=== PATIENT | male | born 1980 ===

== ENCOUNTER 2020-09-16 22:29 | Emergency (ER) | payer OTHER, SELFPAY ==
[2020-09-16 22:31] VITALS: BP 136/64; PULSE 70; RESP 18; TEMP 36.8; O2SAT 97; BMI 34.2
--- NOTE | 2020-09-16 23:11 | ED_ITS ---
HPI - Back Pain/Injury General Chief Complaint: Back Pain/Injury Stated Complaint: Back Pain Time Seen by Provider: 09/16/20 23:05 Source: patient Mode of arrival: ambulatory Limitations: no limitations History of Present Illness HPI Narrative: Patient comes to emergency room complaining of right-sided back pain. Patient states earlier today he was working in [employer], patient states he stood up fast and felt a pulling sensation in his lumbar area on the right side. Patient states the pain does not radiate. Patient denies any fecal or urinary incontinence or retention. Patient states after he had the pulling sensation he was feeling well but after he pulled down from working, he started having pain again. Related Data Previous Rx's Medication Instructions Recorded cyclobenzaprine 10 mg PO TID PRN #14 tab 09/16/20 ketorolac 10 mg PO TID PRN 5 Days #10 tab 09/16/20 Allergies Allergy/AdvReac Type Severity Reaction Status Date / Time levofloxacin [From LEVAQUIN] Allergy Severe THROAT Unverified 07/17/20 16:30 CLOSING Review of Systems Review of Systems: Constitutional : No Weight loss, No Fever, No Chills, No Night Sweats, No Fatigue, No Malaise ENT/Mouth : No Hearing loss, No Ear Pain, No Nasal Congestion, No Sinus Pain, No Hoarseness, No sore throat, No Rhinorrhea, No Swallowing Difficulty Eyes: No Eye Pain, No Swelling, No Redness, No Foreign Body, No Discharge, No Vision Changes Cardiovascular : No Chest Pain, No SOB, No Dyspnea on Exertion, No Orthopnea, No Edema, No Palpitations Respiratory : No Cough, No Sputum, No Wheezing, No Smoke Exposure, No Dyspnea Gastrointestinal : No Nausea, No Vomiting, No Diarrhea, No Constipation, No abdominal Pain, No Hematochezia, No Melena Genitourinary : no irregular bleeding, No Dysuria, No Urinary Frequency, No Hematuria, No Urinary Incontinence, No Urgency, No Flank Pain, No Urinary Flow Changes, No Hesitancy Musculoskeletal : No joint pain, patient complaining of right lower back pain Skin : No Skin Lesions, No rash Neuro : No Weakness, No Numbness, No Paresthesias, No Loss of Consciousness, No Dizziness, No Headache Psych : No Anxiety/Panic, No Depression, No SI/HI/AH/VH, No Social Issues, Heme/Lymph: No Bruising, No Bleeding,No Lymphadenopathy Endocrine : No Polyuria, No Polydipsia, No Temperature Intolerance [facility] Past Medical History Medical History No active medical problems Social History Social History Alcohol intake: never Smoked in Last 30 Days: No Use of substances other than those prescribed or required for medical reasons: No Advance Directives: No Advance Directives Information Provided: Yes Physical Exam Vital Signs: Vital Signs: Last Vital Signs Temp 98.3 F 09/16/20 22:31 Pulse 70 09/16/20 22:31 Resp 18 09/16/20 22:31 BP 136/64 09/16/20 22:31 Pulse Ox 97 09/16/20 22:31 Body Mass Index 34.2 Appearance: Alert. Oriented X3. No acute distress. Eyes: Pupils equal, round and reactive to light. ENT: Pharynx normal. Neck: Normal inspection. Neck supple. No lymph nodes noted. No crepitus CVS: Normal heart rate and rhythm. Pulses normal. Normal S1 and S2 Respiratory: No respiratory distress. Breath sounds normal. No Wheezing. No rales Abdomen: Soft and nontender. No rigidity. No distention. good BS x4 Skin: Skin warm and dry. Normal skin color. Normal skin turgor. Back: Negative straight leg raise test on both sides Extremities: No lower extremity edema. No lower extremity edema. No Lacerations. No Rash Neuro: Oriented X 3. No motor deficit. No sensory deficit. Moving all extermities. No slurred speech. Course Course Course Narrative: I discussed the physical exam with the patient, it is likely that he has a muscular strain rather than a herniated disc versus a pinched nerve. Patient received an IM dose of ketorolac and Decadron. Patient will follow-up with his primary care physician. Discharge Plan Discharge Clinical Impression: Strain of lumbar region Qualifiers: Encounter type: initial encounter Qualified Code(s): S39.012A - Strain of muscle, fascia and tendon of lower back, initial encounter Patient Disposition: Home, Self-Care Instructions: Low Back Strain (ED) Additional Instructions: Please follow-up with your primary care physician tomorrow. If you have any worsening or new symptoms, please return to the emergency room or call 911 Prescriptions: New cyclobenzaprine 10 mg tablet 10 mg PO TID PRN (Reason: muscle spasm) Qty: 14 RF: 0 ketorolac 10 mg tablet 10 mg PO TID PRN (Reason: pain) 5 Days Qty: 10 RF: 0 Stand Alone Forms: Work/School Release
[2020-09-16] MEDS: dexAMETHasone sod phosphate 4 MG/ML VIAL IM (23:38)
[2020-09-16] MEDS: Ketorolac Tromethamine 60 MG/2 ML VIAL IM (23:38)
--- NOTE | 2020-09-16 23:47 | PC.NURSE ---
PT SITTING UPRIGHT ON SIDE OF BED. PT ADMINISTERED IM MEDICATION FOR BACK PAIN. PT IN NO DISTRESS, AMBULATORY.
== END 2020-09-17 | disposition home or self-care (01) ==
PROVIDERS: Emergency Provider Emergency Medicine; PCP Internal Medicine
DX: S39.012A Strain of muscle, fascia and tendon of lower back, initial encounter (principal); M54.6 Pain in thoracic spine; Y93.H2 Activity, gardening and landscaping; Y92.007 Garden or yard of unspecified non-institutional (private) residence as the place of occurrence of the external cause; Y99.9 Unspecified external cause status; Z79.899 Other long term (current) drug therapy
CPT/HCPCS: 96372; 99283; 99284; J1100; J1885

== ENCOUNTER 2020-12-01 07:00 | Outpatient (REF) | payer MEDICAID, SELFPAY ==
[2020-12-01 07:57] LABS: MANUAL DIFF FLAG NO
[2020-12-01 08:01] LABS: Basophils Absolute Auto 0.1 X10*3/uL (0.0-0.2); Basophils Percent Auto 0.4 % (0-2); Eosinophils Absolute Auto 0.3 X10*3/uL (0.0-0.4); Eosinophils Percent Auto 2.4 % (0-4); Hematocrit 42.3 % (42-52); Hemoglobin 13.4 g/dl (14.0-18.0); Imm Gran Abs Auto 0.05 X10*3/uL (0.00-0.03); Imm Gran Pct Auto 0.4 % (0.0-0.4); Lymphocytes Absolute Auto 2.6 X10*3/uL (1.2-4.9); Lymphocytes Percent Auto 23.5 % (20-40); Mean Corpuscular HGB Conc 31.7 g/dl (31.0-36.0); Mean Corpuscular Volume 85.1 fL (80-98); Mean Platelet Volume 10.8 fL (9.4-12.4); Monocytes Absolute Auto 1.3 X10*3/uL (0.1-1.2); Monocytes Percent Auto 11.2 % (2-11); Neutrophils Absolute Auto 6.9 X10*3/uL (2.0-8.3); Neutrophils Percent Auto 62.1 % (45-73); Platelet Count 314 X10*3/uL (160-400); Red Blood Count 4.97 X10*6/uL (4.60-5.80); Red Cell Distribution Width 14.8 % (11.0-16.0); White Blood Count 11.2 X10*3/uL (4.8-10.8)
[2020-12-01 08:21] LABS: Alanine Aminotransferase 39 U/L (0-40); Albumin Level 4.2 g/dL (3.5-5.0); Alkaline Phosphatase 97 U/L (39-117); Anion Gap 12 (12-20); Aspartate Amino Transferase 22 U/L (5-37); Bilirubin Total 0.5 mg/dL (0.0-1.0); Blood Urea Nitrogen 17 mg/dL (9-16); Calcium 9.4 mg/dL (8.4-10.2); Carbon Dioxide 28 mmol/L (22-29); Chloride 106 mmol/L (96-108); Cholesterol 189 mg/dL; Estimated Glomerular Filt Rate > 60; Glucose Fasting 105 mg/dL (60-99); HDL Cholesterol 37 mg/dL; LDL Cholesterol Calculated 112 mg/dl; Potassium 4.5 mmol/L (3.3-5.1); Sodium 141 mmol/L (135-145); Total Protein 7.1 g/dL (6.5-8.0); Triglycerides 203 mg/dL
[2020-12-01 08:43] LABS: TSH reflex Free T4 2.63 uIU/mL (0.32-4.0)
[2020-12-01 09:20] LABS: Estimated Average Glucose 123 mg/dL; Hemoglobin A1c % 5.9 %
[2020-12-01 18:08] LABS: Folate 10.3 ng/mL (> or = 4.0); Vitamin B12 516 pg/mL (200-900)
== END 2020-12-01 07:01 | disposition home or self-care (01) ==
LOC: HO.LAB 07:00
PROVIDERS: Visit Provider Internal Medicine
DX: N17.9 Acute kidney failure, unspecified (principal); R73.01 Impaired fasting glucose; E78.1 Pure hyperglyceridemia; E66.9 Obesity, unspecified; G47.33 Obstructive sleep apnea (adult) (pediatric)
CPT/HCPCS: 36415; 80053; 80061; 82607; 82746; 83036; 84443; 85025

== ENCOUNTER 2021-03-09 07:54 | Outpatient (REF) | payer OTHER, SELFPAY ==
[2021-03-09 08:15] LABS: COVID-19 Test Negative (Negative)
== END 2021-03-09 07:55 | disposition home or self-care (01) ==
LOC: HO.LAB 07:54
PROVIDERS: Visit Provider Internal Medicine
DX: Z20.822 Contact with and (suspected) exposure to COVID-19 (principal)
CPT/HCPCS: 36415; 87635; C9803

== ENCOUNTER 2021-04-07 06:46 | Outpatient (REF) | payer OTHER, SELFPAY ==
[2021-04-07 08:45] LABS: Anion Gap 12 (12-20); Blood Urea Nitrogen 13 mg/dL (9-16); Calcium 9.3 mg/dL (8.4-10.2); Carbon Dioxide 27 mmol/L (22-29); Chloride 106 mmol/L (96-108); Estimated Glomerular Filt Rate > 60; Phosphorus 2.9 mg/dL (2.7-4.5); Potassium 4.2 mmol/L (3.3-5.1); Sodium 141 mmol/L (135-145)
[2021-04-07 08:48] LABS: Renal w Reflex Lab Use Only Order verified
[2021-04-07 08:49] LABS: Total Volume 24 Hour Urine 900 mL
[2021-04-07 09:22] LABS: Creatinine, 24Hr Urine 2.9 G/Day (1.0-2.0)
[2021-04-07 11:15] LABS: Creatinine (CrCl) 1.27 mg/dL (0.5-1.4); Creatinine Clearance 158.2 mL/min (85-125)
[2021-04-14 07:37] LABS: BUN 14 mg/dL (7-25); BUN Clearance 86 mL/min (41-68); Urea Nitrogen, Urine 14 g/24 h (6-17)
== END 2021-04-07 06:47 | disposition home or self-care (01) ==
LOC: HO.LAB 06:46
PROVIDERS: PCP Internal Medicine; Visit Provider Internal Medicine Nephrology
DX: N18.30 Chronic kidney disease, stage 3 unspecified (principal); N28.9 Disorder of kidney and ureter, unspecified
CPT/HCPCS: 36415; 80051; 82310; 82565; 82575; 84100; 84520; 84545

== ENCOUNTER 2022-03-18 15:41 | Outpatient (REF) | payer OTHER, SELFPAY ==
[2022-03-18 16:16] LABS: COVID-19 Test Positive (Negative); IDNOW Serial# 9DB6401D
== END 2022-03-18 15:42 | disposition home or self-care (01) ==
LOC: HO.LAB 15:41
PROVIDERS: Visit Provider Internal Medicine
DX: Z20.822 Contact with and (suspected) exposure to COVID-19 (principal)
CPT/HCPCS: 87635; C9803

== ENCOUNTER 2022-04-08 07:46 | Outpatient (REF) | payer OTHER, SELFPAY ==
--- NOTE | ~2022-04-08 | XR_ITS ---
EXAMINATION: XR FOOT, LEFT CLINICAL INFORMATION: Pain COMPARISON: Previous x-ray March 2011 TECHNIQUE: AP, lateral, and oblique views of the left foot. FINDINGS: Bone alignment is normal. No fracture or dislocation is seen. Joint spaces are normal. There is a small calcaneal spur at the Achilles tendon insertion. XR/XR foot LT 2V IMPRESSION: Small calcaneal spur otherwise unremarkable exam.
[2022-04-08 08:04] LABS: MANUAL DIFF FLAG NO
[2022-04-08 08:43] LABS: Basophils Absolute Auto 0.1 X10*3/uL (0.0-0.2); Basophils Percent Auto 0.5 % (0-2); Eosinophils Absolute Auto 0.5 X10*3/uL (0.0-0.4); Eosinophils Percent Auto 4.6 % (0-4); Hematocrit 42.6 % (42.0-52.0); Hemoglobin 13.6 g/dl (14.0-18.0); Imm Gran Abs Auto 0.03 X10*3/uL (0.00-0.03); Imm Gran Pct Auto 0.3 % (0.0-0.4); Immature Retic Fraction 21.8 % (2.3-13.4); Lymphocytes Absolute Auto 2.3 X10*3/uL (1.2-4.9); Lymphocytes Percent Auto 21.4 % (20-40); Mean Corpuscular HGB Conc 31.9 g/dl (31.0-36.0); Mean Corpuscular Hemoglobin 27.1 pg (27.0-33.0); Mean Corpuscular Volume 84.9 fL (80.0-98.0); Mean Platelet Volume 11.2 fL (9.4-12.4); Monocytes Percent Auto 8.9 % (2-11); Neutrophils Absolute Auto 7.1 x10*3/uL (2.0-8.3); Neutrophils Percent Auto 64.3 % (45-73); Platelet Count 301 X10*3/uL (160-400); Red Blood Count 5.02 X10*6/uL (4.60-5.80); Red Cell Distribution Width 15.1 % (11.0-16.0); Retic HGB Equivalent 30.3 pg (30.0-35.0); Reticulocyte Percent 1.7 % (0.5-1.8); Reticulocytes Absolute 0.085 X10*6/uL (0.026-0.095); White Blood Count 10.9 X10*3/uL (4.8-10.8)
[2022-04-08 08:54] LABS: Estimated Average Glucose 120 mg/dL; Hemoglobin A1C 139.3132 umol/L; Hemoglobin A1c % 5.8 %
[2022-04-08 09:11] LABS: Alanine Aminotransferase 29 U/L (0-40); Albumin Level 4.2 g/dL (3.5-5.0); Alkaline Phosphatase 101 U/L (39-117); Anion Gap 11 (12-20); Aspartate Amino Transferase 19 U/L (5-37); Bilirubin Total 0.4 mg/dL (0.0-1.0); Blood Urea Nitrogen 15 mg/dL (9-16); Calcium 9.2 mg/dL (8.4-10.2); Carbon Dioxide 27 mmol/L (22-29); Chloride 107 mmol/L (96-108); Cholesterol 179 mg/dL; Estimated Glomerular Filt Rate > 60; Glucose Random 101 mg/dL (60-115); HDL Cholesterol 35 mg/dL; Iron 73 mcg/dL (45-160); LDL Cholesterol Calculated 105 mg/dl; Percent Iron Saturation 26 % (15-50); Potassium 4.7 mmol/L (3.3-5.1); Sodium 140 mmol/L (135-145); Total Iron Binding Capacity 280 mcg/dL (228-428); Total Protein 7.1 g/dL (6.5-8.0); Triglycerides 199 mg/dL; Unsaturated Iron Binding 207 ug/dL
[2022-04-08 09:24] LABS: Ferritin 154 ng/mL (20-250); Free T4 (Free Thyroxine) 0.81 ng/dL (0.71-1.85); Thyroid Stimulating Hormone 1.71 uIU/mL (0.32-4.0)
[2022-04-08 09:41] LABS: Folate 13.7 ng/mL (> or = 4.0); Vitamin B12 324 pg/mL (200-900)
== END 2022-04-08 07:47 | disposition home or self-care (01) ==
LOC: HO.XRAY 07:46
PROVIDERS: PCP Internal Medicine; Visit Provider Internal Medicine
DX: M79.672 Pain in left foot (principal); E78.00 Pure hypercholesterolemia, unspecified; R73.02 Impaired glucose tolerance (oral); D64.9 Anemia, unspecified
CPT/HCPCS: 36415; 73620; 80053; 80061; 82607; 82728; 82746; 83036; 83540; 84439; 84443; 85025; 85045

== ENCOUNTER 2023-04-12 11:40 | Emergency (ER) | payer OTHER, SELFPAY ==
[2023-04-12 11:47] VITALS: BP 149/72; BP 162/99; PULSE 72; PULSE 76; RESP 18; TEMP 36.9; O2SAT 97; BMI 38.3
--- NOTE | 2023-04-12 11:48 | ED_ITS ---
HPI - General Adult General Chief complaint: Wound/Laceration Stated complaint: LOW ABD LAC W/FATTY TISSUE EXP PER EMS Time Seen by Provider: 04/12/23 11:48 Source: patient and EMS Mode of arrival: EMS Limitations: no limitations History of Present Illness HPI narrative: Patient is a 42 year old assigned male at with a history of asthma and arthritis presenting to the emergency department today with an abdominal laceration. Patient states that he was stepping out of his truck when a piece of metal from the door caught his abdomen. Patient denies any dizziness, lightheadedness, nausea, vomiting, fever, chills, blurry vision, double vision, loss of vision, chest pain, difficulty breathing, shortness of breath, back pain, night sweats, pain with urination, increased urinary frequency, increased urinary urgency, blood in his urine or stool, syncope or a near syncopal episode, bowel incontinence, bladder incontinence, bowel retention, bladder retention, or any other complaints at this time. Onset (ago): minute(s) Location: abdomen Radiation: non-radiation Severity: mild Severity scale (1-10): 3 Relieving factors: none Exacerbating factors: none Associated symptoms: denies other symptoms Treatments prior to arrival: none Related Data Home Medications Medication Instructions Recorded Confirmed epinephrine 0.3 mg/0.3 mL 0.3 mg IM Q10M PRN Anaphylaxis 12/02/20 07/19/22 injection, auto-injector Previous Rx's Medication Instructions Recorded albuterol sulfate 90 mcg/actuation 2 puff inhalation Q6H PRN Wheezing 07/19/22 aerosol inhaler (ProAir HFA) #8.5 grams cephalexin 500 mg capsule 500 mg PO Q6H 7 days #28 caps 04/12/23 doxycycline hyclate 100 mg tablet 100 mg PO BID 7 days #14 tabs 04/12/23 Allergies Allergy/AdvReac Type Severity Reaction Status Date / Time levofloxacin [From LEVAQUIN] Allergy Severe THROAT Verified 07/19/22 16:32 CLOSING Review of Systems Constitutional: Constitutional: Reports no additional constitutional complaints, Denies chills, Denies fever(s) and Denies night sweats Eyes: Eyes: Reports no additional eye complaints, Denies blurry vision, Denies change in vision, Denies diplopia, Denies eye discharge, Denies loss of vision and Denies eye pain ENT: Denies dizziness Cardiovascular: Cardiovascular: Reports no additional cardiovascular complaints, Denies chest pain, Denies lightheadedness, Denies Loss of Consciousness and Denies dyspnea Respiratory: Respiratory: Reports no additional respiratory complaints and Denies dyspnea Gastrointestinal: Gastrointestinal: Reports no additional gastrointestinal complaints, Denies melena, Denies hematochezia, Denies change in bowel habits and Denies change in stool character Genitourinary: Genitourinary: Reports no additional male genitourinary com plaints, Denies hematuria, Denies oliguria, Denies difficulty urinating, Denies dysuria, Denies urinary frequency, Denies urinary hesitancy, Denies urinary incontinence and Denies urinary urgency Musculoskeletal: Musculoskeletal: Reports no additional musculoskeletal complaints, Denies numbness and Denies tingling Integumentary/Breasts: Comments: abdominal wound Neurologic: Denies dizziness, Denies loss of vision, Denies numbness and Denies tingling Psychiatric: Psychiatric: Reports no additional psychiatric complaints Endocrine: Endocrine: Reports no additional endocrine complaints Hematologic/Lymphatic: Hematologic/Lymphatic: Reports no additional hematologic/lymphatic complaints Allergic/Immunologic: Allergic/Immunologic: Reports no additional allergic/immunologic complaints [facility] Past Medical History Attestation statement: The following information was validated with the patient. Source: old records reviewed and nursing notes reviewed Medical History Acute kidney injury Asthma Hypercholesterolemia Impaired glucose tolerance Obesity (BMI 30-39.9) Obstructive sleep apnea Vitamin D deficiency Surgical History History of cholecystectomy Family History Family History Mother Diabetes Asthma Father Diabetes High cholesterol Myocardial infarct Asthma Social History Social History Housing: Apartment Alcohol intake: never Patient Tobacco Use Status: Never used Tobacco Smoked in Last 30 Days: No e-Cigarette/Vaping Use: Never Used Second Hand Smoke Exposure: No Use of substances other than those prescribed or required for medical reasons: No Advance Directives: No service: No Current occupational status: employed Cognitive needs: No Hearing needs: No Vision needs: No Physical Exam ED Vital Signs: Vital Signs - 24 hr 04/12/23 11:47 Temperature 98.5 F Pulse Rate 72 Respiratory Rate 18 Blood Pressure 149/72 H Pulse Oximetry 97 Oxygen Delivery Method Room Air BMI result Body Mass Index 38.3 Const General: cooperative, no acute distress, alert and awake Nutritional Appearance: well nourished Orientation/consciousness: patient oriented x3 Limitations: no limitations HENMT Head: Yes normal to inspection and Yes atraumatic Ears: hearing grossly normal bilaterally and external ears normal General nose exam: Normal external nose present, no nasal discharge noted and no epistaxis Face and sinus: Yes normal facial exam, No abrasion and No laceration Mouth: Normal oral and palatal mucosa present, no drooling and no muffled voice Eyes General: appearance normal, both eyes and all related structures Periorbital: periorbital findings normal Eyelids: Yes eyelids normal Conjunctivae: conjunctivae normal Pupils: Equal, round and reactive pupils present EOM: EOMs intact bilaterally Neck Neck: Yes normal visual inspection, Yes full ROM and Yes no lymphadenopathy Chest Chest palpation & inspection: normal inspection of the chest Resp Effort & Inspection: normal respiratory effort and able to speak in complete sentences Auscultation: clear to auscultation bilaterally Cardio Rate: regular rate Rhythm: regular rhythm GI Abdomen image: 1. 4cm superficial laceration, no active bleeding 2. 3cm superficial laceration, no active bleeding Neuro General: patient oriented x3 and moves all extremities Cranial nerves: Yes Equal, round and reactive pupils present Cognition (Neuro): normal cognition Motor exam (neuro): 5/5 motor strength present throughout Sensory Exam: Normal double simultaneous stimulation for sensation Coordination: [id number]-[id number] test normal Extrem General: Yes normal to inspection, Yes full ROM and Yes capillary refill normal Psych Appearance: grossly normal Mental Status: mental status grossly normal Affect: normal affect Attitude: cooperative Thought process: Normal thought process present Thought content: Normal thought content present Insight: Good insight present (Psych) Medications Administered Discontinued Medications Generic Name Dose Route Start Last Admin Trade Name Freq PRN Reason Stop Dose Admin Diphtheria/Tetanus/Acell Pertussis 0.5 ml 04/12/23 11:52 04/12/23 12:00 Diphth,Pertus(Acell),Tet Adult 0.5 Ml Syringe IM 04/12/23 11:53 0.5 ml .ONCE ONE Administration Lidocaine HCl 10 ml 04/12/23 11:52 04/12/23 12:00 Lidocaine Hcl 1 % Mpf 5 Ml Vial SUBCUT 04/12/23 11:53 10 ml ONCE ONE Administration Procedures Laceration Laceration 1: Site: other (inferior abdomen) Size (cm): 4 Description: linear Depth: simple, single layer Local Anesthetic: lidocaine 1% Amount of anesthesia used (mL): 2.5 Pre-repair: wound explored, irrigated extensively and deep structures intact Skin layer closed with: other (prolene) Size (cm): 4-0 Number of sutures: 4 Technique: simple, interrupted Laceration 2: Site: other (superior abdomen) Size (cm): 3 Description: linear Depth: simple, single layer Local Anesthetic: lidocaine 1% Amount of anesthesia used (mL): 2.5 Pre-repair: wound explored, irrigated extensively and deep structures intact Skin layer closed with: other (prolene) Size (cm): 4-0 Number of sutures: 3 Medical Decision Making Medical Decision Making MDM Narrative: Patient is a 42 year old assigned male at with a history of asthma and arthritis presenting to the emergency department today with 2 abdominal lacerations. Patient's physical exam was as noted in the physical exam portion of this chart. I explained my physical exam findings to the patient and the patient's family at the bed side. I answered all questions asked by the patient and the patient's family at the bed side. Patient was brought up to date on his tetanus status. Patient's wounds were irrigated and cleaned extensively. Patient's lacerations were repaired, per procedure note, without incident. I stressed the importance of the patient taking his medication as prescribed. I stressed the importance of NOT soaking the affected area. I stressed the importance of the patient having his sutures removed in 07-10 days. I stressed the importance of the patient following up with his primary care provider and the wound center. I stressed the importance of the patient returning to the emergency department immediately if his symptoms were to worsen or if he were to develop any dizziness, shortness of breath, difficulty breathing, chest pain, blurry vision, loss of vision, nausea, vomiting, abdominal pain, fever, chills, back pain, or any other complaints. Patient and the patient's family verbalized agreement and understanding with this treatment plan and discharge. Differential Diagnosis Differential Diagnoses: The differential diagnosis associated with the presentation includes abdominal laceration Independent Historian Clinical information obtained from an independent historian. History obtained from or confirmed by: EMS (EMS provided additional history and confirmed the patient's history) Critical Care Time Critical Care Time Critical Care Time: Yes Total Critical Care Time: 30 Attestation: I spent 30 minutes of Critical Care Time with this patient. This does not include time spent on separately reported billable procedures. Discharge Plan Discharge Clinical Impression: Laceration of abdominal wall Patient Disposition: Home, Self-Care Instructions: Care For Your Stitches (DC), Laceration (DC) Additional Instructions: Follow up with your primary care provider and the wound center. Due to the area and nature of the injury, it is best to follow with the wound center to ensure it heals appropriately. Have your sutures removed in 7-10 days. Do NOT soak the affected area. Return to the emergency department immediately if your symptoms worsen or if you develop any dizziness, shortness of breath, difficulty breathing, chest pain, blurry vision, loss of vision, nausea, vomiting, abdomin al pain, fever, chills, back pain, or any other complaints. Prescriptions: New cephalexin 500 mg capsule 500 mg PO Q6H 7 Days Qty: 28 0RF doxycycline hyclate 100 mg tablet 100 mg PO BID 7 Days Qty: 14 0RF No Action epinephrine 0.3 mg/0.3 mL auto-injector 0.3 mg IM Q10M PRN (Reason: Anaphylaxis) Rx Instructions: for 2 doses albuterol sulfate [ProAir HFA] 90 mcg/actuation HFA aerosol inhaler 2 puff inhalation Q6H PRN (Reason: Wheezing) Qty: 8.5 0RF Referrals: [facility] [place] Wound Care Management [Provider Group] (Call to establish and follow up with the wound center. ) Thanh Tuttle MD [Primary Care Provider] - Stand Alone Forms: Work/School Release Print Language: Greenlandic
[2023-04-12] MEDS: Lidocaine HCl 1 % MPF 5 ML VIAL 10 ML SUBCUT (12:00)
[2023-04-12] MEDS: Diphth,Pertus(ACell),Tet Adult 0.5 ML SYRINGE IM (12:00)
== END 2023-04-12 13:30 | disposition home or self-care (01) ==
PROVIDERS: Emergency Provider Emergency Medicine; PCP Internal Medicine
DX: S31.114A Laceration without foreign body of abdominal wall, left lower quadrant without penetration into peritoneal cavity, initial encounter (principal); S31.113A Laceration without foreign body of abdominal wall, right lower quadrant without penetration into peritoneal cavity, initial encounter; S30.811A Abrasion of abdominal wall, initial encounter; W26.9XXA Contact with unspecified sharp object(s), initial encounter; Y93.9 Activity, unspecified; Y92.812 Truck as the place of occurrence of the external cause; Y99.9 Unspecified external cause status; Z79.899 Other long term (current) drug therapy; Z23 Encounter for immunization
CPT/HCPCS: 12032; 90471; 90715; 99284

== ENCOUNTER 2023-04-15 08:07 | Outpatient (REF) | payer OTHER, SELFPAY ==
[2023-04-15 08:31] LABS: MANUAL DIFF FLAG NO
[2023-04-15 09:07] LABS: Basophils Absolute Auto 0.1 X10*3/uL (0.0-0.2); Basophils Percent Auto 0.6 % (0-2); Eosinophils Absolute Auto 0.7 X10*3/uL (0.0-0.4); Eosinophils Percent Auto 5.5 % (0-4); Hematocrit 43.5 % (42.0-52.0); Hemoglobin 13.8 g/dl (14.0-18.0); Imm Gran Abs Auto 0.06 X10*3/uL (0.00-0.03); Imm Gran Pct Auto 0.5 % (0.0-0.4); Lymphocytes Absolute Auto 2.6 X10*3/uL (1.2-4.9); Lymphocytes Percent Auto 21.9 % (20-40); Mean Corpuscular HGB Conc 31.7 g/dl (31.0-36.0); Mean Corpuscular Hemoglobin 27.1 pg (27.0-33.0); Mean Corpuscular Volume 85.5 fL (80.0-98.0); Mean Platelet Volume 11.1 fL (9.4-12.4); Monocytes Absolute Auto 1.1 X10*3/uL (0.1-1.2); Monocytes Percent Auto 8.9 % (2-11); Neutrophils Absolute Auto 7.4 x10*3/uL (2.0-8.3); Neutrophils Percent Auto 62.6 % (45-73); Platelet Count 325 X10*3/uL (160-400); Red Blood Count 5.09 X10*6/uL (4.60-5.80); Red Cell Distribution Width 14.8 % (11.0-16.0); Retic HGB Equivalent 31.2 pg (30.0-35.0); Reticulocyte Percent 1.9 % (0.5-1.8); Reticulocytes Absolute 0.094 X10*6/uL (0.026-0.095); White Blood Count 11.9 X10*3/uL (4.8-10.8)
[2023-04-15 09:41] LABS: Estimated Average Glucose 120 mg/dL; Hemoglobin A1C 149.5018 umol/L; Hemoglobin A1c % 5.8 %
[2023-04-15 10:02] LABS: Alanine Aminotransferase 39 U/L (0-40); Albumin Level 4.1 g/dL (3.5-5.0); Alkaline Phosphatase 89 U/L (39-117); Anion Gap 14 (12-20); Aspartate Amino Transferase 20 U/L (5-37); Bilirubin Total 0.3 mg/dL (0.0-1.0); Blood Urea Nitrogen 17 mg/dL (9-16); Calcium 10.2 mg/dL (8.4-10.2); Carbon Dioxide 25 mmol/L (22-29); Chloride 106 mmol/L (96-108); Cholesterol 184 mg/dL; Estimated Glomerular Filt Rate 52; Glucose Random 99 mg/dL (60-115); HDL Cholesterol 39 mg/dL; Iron 50 mcg/dL (45-160); LDL Cholesterol Calculated 117 mg/dl; Percent Iron Saturation 21 % (15-50); Potassium 4.2 mmol/L (3.3-5.1); Sodium 141 mmol/L (135-145); Syphilis Screen Nonreactive (Nonreactive); Total Iron Binding Capacity 234 mcg/dL (228-428); Total Protein 7.6 g/dL (6.5-8.0); Triglycerides 143 mg/dL; Unsaturated Iron Binding 184 ug/dL
[2023-04-15 10:04] LABS: HBS Num1 0.27 mIU/mL (0-7.99); HBc Num1 0.07 S/CO (0.00-0.79); HBsAGNum1 0.31 S/CO (0.00-0.99); HIV AB/AG Nonreactive (Nonreactive); HIV Num 1 0.06 S/CO (0.00-0.99); Hepatitis B Core Antibody Nonreactive (Nonreactive); Hepatitis B Surface Antigen Negative (Negative); ~HepC Num1 0.08 S/CO (0.00-0.79); ~Hepatitis B Surface Antibody NONREACTIVE (Nonreactive); ~Hepatitis C Antibody Nonreactive (Nonreactive)
[2023-04-15 10:09] LABS: Ferritin 193 ng/mL (20-250); Free T4 (Free Thyroxine) 0.86 ng/dL (0.71-1.85); Thyroid Stimulating Hormone 2.49 uIU/mL (0.32-4.0)
[2023-04-15 10:19] LABS: Folate 8.4 ng/mL (> or = 4.0); Vitamin B12 279 pg/mL (200-900)
== END 2023-04-15 08:08 | disposition home or self-care (01) ==
LOC: HO.LAB 08:07
PROVIDERS: PCP Internal Medicine; Visit Provider Internal Medicine
DX: Z11.4 Encounter for screening for human immunodeficiency virus [HIV] (principal); D64.9 Anemia, unspecified; R73.02 Impaired glucose tolerance (oral); E78.00 Pure hypercholesterolemia, unspecified; R79.89 Other specified abnormal findings of blood chemistry
CPT/HCPCS: 36415; 80053; 80061; 82607; 82728; 82746; 83036; 83540; 84439; 84443; 85025; 85045; 86704; 86706; 86780; 86803; 87340; 87389

== ENCOUNTER 2023-05-11 07:52 | Outpatient (RCR) | payer OTHER, SELFPAY | END 2023-05-27 09:50 | disposition home or self-care (01) | LOC: HO.WCC 07:52 | PROVIDERS: PCP Internal Medicine; Visit Provider Surgery | DX: S31.119A Laceration without foreign body of abdominal wall, unspecified quadrant without penetration into peritoneal cavity, initial encounter (principal); W19.XXXA Unspecified fall, initial encounter; Y93.9 Activity, unspecified; Y92.9 Unspecified place or not applicable; Y99.9 Unspecified external cause status; Z79.899 Other long term (current) drug therapy | CPT/HCPCS: 11042; 99212 ==

== ENCOUNTER 2023-10-28 08:26 | Outpatient (AMB) | payer OTHER, SELFPAY ==
[2023-10-28 08:29] VITALS: BP 128/76; PULSE 55; O2SAT 98; BMI 37.4
--- NOTE | 2023-10-28 08:29 | A.OFFPC_ITS ---
Vital Signs 10/28/23 08:29 Height 5 ft 10 in Weight 261 lb BMI 37.4 BP 128/76 Blood Pressure Location Lt brachial Position Sitting Pulse 55 Pulse Source Pulse Oximeter Pulse Oximetry (%) 98 Oxygen Delivery Method Room Air Intake Visit Reasons: F/Up hyperlipiedemia,GERD Allergies levofloxacin [From LEVAQUIN] Allergy (Severe, Verified 10/28/23 08:29) THROAT CLOSING Medication List - Last Reconciled 10/28/23 by Thanh Tuttle MD albuterol sulfate 90 mcg/actuation (ProAir HFA) 2 puffs inhalation Q6H PRN epinephrine 0.3 mg IM Q10M PRN famotidine (Pepcid) 20 mg PO BEDTIME Tobacco use date assessed: 04/14/23 Dental Screening Dental Screen Date: 10/28/23 Did you have a dental visit in the last 12 months?: No Did you have a dental problem in the last 6 months where you did not have access to dental care?: No Was dental information given to patient?: No HPI F/Up hyperlipiedemia,GERD HPI Details 43-year-old obese male with hypercholest erolemia asthma impaired glucose tolerance obstructive sleep apnea GERD coming in for follow-up. Last seen in March 2023 had a laceration on the abdominal wall. Patient is here for follow-up [facility] Medical History Acute kidney injury Asthma Hypercholesterolemia Impaired glucose tolerance Obesity (BMI 30-39.9) Obstructive sleep apnea Vitamin D deficiency Surgical History History of cholecystectomy Family History Mother Diabetes Asthma Father Diabetes High cholesterol Myocardial infarct Asthma Social History Housing: Apartment Alcohol intake: never Patient Tobacco Use Status: Never used Tobacco e-Cigarette/Vaping Use: Never Used Second Hand Smoke Exposure: No service: No Current occupational status: employed Cognitive needs: No Hearing needs: No Vision needs: Yes Questionnaire PHQ-9 Over the last 2 weeks, how often have you been bothered by any of the following problems? 1. Little interest or pleasure in doing things: not at all 2. Feeling down, depressed, or hopeless: not at all 3. Trouble falling or staying asleep, or sleeping too much: not at all 4. Feeling tired or having little energy: not at all 5. Poor appetite or overeating: not at all 6. Feeling bad about yourself - or that you are a failure or have let yourself or your family down: not at all 7. Trouble concentrating on things, such as reading the newspaper or watching television: not at all 8. Moving or speaking so slowly that other people could have noticed. Or the opposite - being so fidgety or restless that you have been moving around a lot more than usual: not at all 9. Thoughts that you would be better off or of hurting yourself in some way: not at all Total score: 0 Depression Screening Interpretation: Negative Depression Screening Done: Yes Source: Developed by Drs. Pedro Benitez, Jacinta Norris, Leon Fortune and colleagues, with an educational mendy from [employer]. Thrive Questionnaire Date Thrive assessed: 04/14/23 AUDIT C Alcohol Use Questionnaire (AUDIT-C) 1. How often do you have a drink containing alcohol?: Never 2. How many drinks containing alcohol do you have on a typical day when you are drinking?: 1 or 2 3. How often do you have six or more drinks on one occasion?: Never Total Score: 0 AUSTEN-7 AMB Questionnaire AUSTEN-7 Date AUSTEN - 7 assessed: 04/14/23 Source: Developed by Drs. Pedro Benitez, Jacinta Norris, Leon Fortune and colleagues, with an educational mendy from [employer]. Physical exam (Primary Care) Vital Signs: Last Vital Signs Pulse 55 10/28/23 08:29 BP 128/76 10/28/23 08:29 Pulse Ox 98 10/28/23 08:29 Oxygen Delivery Method Room Air 10/28/23 08:29 BMI result Body Mass Index 37.4 Tobacco/Smoking Status: Tobacco use Status Tobacco use date assessed 04/14/23 10/28/23 08:34 Patient Tobacco Use Status Never used Tobacco 10/28/23 08:34 e-Cigarette/Vaping Use Never Used 10/28/23 08:34 PHQ-9: PHQ-9 Score PHQ-9: Total score 0 10/28/23 08:40 Depression Screening Interpretation: Negative Thrive Assessment: Date of Thrive Assessment Date Thrive assessed 04/14/23 10/28/23 08:34 Const General: alert; No acute distress Eyes Conjunctivae: conjunctivae normal Resp Auscultation: clear to auscultation bilaterally Cardio Rate: regular rate Rhythm: regular rhythm GI Inspection: Yes normal to inspection Extrem General: Yes normal to inspection and No edema Office Procedures Flu Questionnaire Does the patient have a severe egg allergy?: No Does the patient have severe life threatening allergies?: No Does the patient have a fever or illness today?: No Has the patient ever had Guillain-[place] Syndrome?: No Has the patient ever had any past reaction to a flu shot?: No Immunizations flu vacc [id number] 6mos up(PF) 60 mcg(15 mcgx4)/0.5 mL IM syringe Performing Provider: Thanh Tuttle MD Performing Location: [facility] Administered by: RADHA Montiel on 10/28/23 08:54 Dose Route Admin Location Dispensed Lot Number Expiration Date [employer]DC [employer] Machine 0.5 mL IM Left Deltoid 0.5 mL [id number] 04/29/24 [id number] [employer] VIS Given Date VIS Provided VIS Publication Date 10/28/23 Single Vaccine 21 Eligibility Eligibility Date Funding Source Not [facility] Eligible 10/28/23 Private Assessment and Plan Assessment & Plan (1) Renal insufficiency: Code(s): N28.9 - Disorder of kidney and ureter, unspecified Plan: This will need to be followed up and ifc maintains to be elevated needs Nephrology referral (2) Impaired glucose tolerance: Code(s): R73.02 - Impaired glucose tolerance (oral) Plan: Decrease the amount of carbohydrate intake, pasta, bread, rice and potatoes are all sugar and that is aside from all the sweet stuff, remember that fruits are good but they are Sweet also. (3) Anemia: Code(s): D64.9 - Anemia, unspecified Plan: Chronic question of renal insufficiency causing this (4) Hypercholesterolemia: Code(s): E78.00 - Pure hypercholesterolemia, unspecified Plan: Avoid fried foods, chicken skin, eggs, butter margarine, pastries and meat. Be it pork or beef they have a lot of cholesterol LDL goal of less than 130 and triglyceride of less than 150 (5) Asthma: Code(s): J45.909 - Unspecified asthma, uncomplicated Qualifiers: Asthma severity: mild Asthma persistence: intermittent Asthma complication type: uncomplicated Qualified Code(s): J45.20 - Mild intermittent asthma, uncomplicated Plan: Continue with inhaler as needed (6) Obesity (BMI 30-39.9): Code(s): E66.9 - Obesity, unspecified Plan: Diet and exercise (7) GERD (gastroesophageal reflux disease): Code(s): K21.9 - Gastro-esophageal reflux disease without esophagitis Plan: Avoid the foods that causes that usually spicy foods, tomato products, juices, coffee, soda and foods that your sensitive to. After eating do not lie down, allow 3-4 hours before in lie down. And keep the head of bed above 30 degrees to avoid the acid from going up. (8) Colon cancer screening: Code(s): Z12.11 - Encounter for screening for malignant neoplasm of colon Plan: referral to GI (9) Obstructive sleep apnea: Comment: Mild December 2017 on CPAP Code(s): G47.33 - Obstructive sleep apnea (adult) (pediatric) Plan: continue to use the CPAP > 4 hours a night and benefits from this Orders: Orders Comprehensive Met. Panel Today N28.9 - Disorder of kidney and ureter, unspecified Reticulocyte Count Today N28.9 - Disorder of kidney and ureter, unspecified Ferritin Today N28.9 - Disorder of kidney and ureter, unspecified Complete Blood Count Auto Diff Today N28.9 - Disorder of kidney and ureter, unspecified IRON PROFILE Today N28.9 - Disorder of kidney and ureter, unspecified Free T4 (Free Thyroxine) Today N28.9 - Disorder of kidney and ureter, unspecified Thyroid Stimulating Hormone Today N28.9 - Disorder of kidney and ureter, unspecified Lipid Panel Today E78.00 - Pure hypercholesterolemia, unspecified, N28.9 - Disorder of kidney and ureter, unspecified Vitamin B12 and Folate Today N28.9 - Disorder of kidney and ureter, unspecified US renal BI Today N28.9 - Disorder of kidney and ureter, unspecified Referrals Gastroenterology Referral Z12.11 - Encounter for screening for malignant neoplasm of colon Medications: New famotidine (Pepcid) 20 mg PO BEDTIME 90 tabs 0RF K21.9 - Gastro-esophageal reflux disease without esophagitis Coding Level of Care Code Est Pt Level 4 (92170) Diagnoses Renal insufficiency N28.9 Impaired glucose tolerance R73.02 Anemia D64.9 Hypercholesterolemia E78.00 Mild intermittent asthma without complication J45.20 Asthma severity: mild Asthma persistence: intermittent Asthma complication type: uncomplicated Obesity (BMI 30-39.9) E66.9 GERD (gastroesophageal reflux disease) K21.9 Colon cancer screening Z12.11 Obstructive sleep apnea G47.33
== END 2023-10-28 08:55 | disposition home or self-care (01) ==
PROVIDERS: PCP Internal Medicine; Visit Provider Internal Medicine
DX: Z23 Encounter for immunization (principal); E78.00 Pure hypercholesterolemia, unspecified; K21.9 Gastro-esophageal reflux disease without esophagitis; J45.20 Mild intermittent asthma, uncomplicated; G47.33 Obstructive sleep apnea (adult) (pediatric); N28.9 Disorder of kidney and ureter, unspecified; R73.02 Impaired glucose tolerance (oral); D64.9 Anemia, unspecified
CPT/HCPCS: 90471; 90686; 99214

== ENCOUNTER 2023-11-11 07:45 | Outpatient (REF) | payer OTHER, SELFPAY ==
[2023-11-11 08:09] LABS: MANUAL DIFF FLAG NO
[2023-11-11 08:40] LABS: Basophils Percent Auto 0.4 % (0-2); Eosinophils Absolute Auto 0.5 X10*3/uL (0.0-0.4); Eosinophils Percent Auto 4.2 % (0-4); Hematocrit 42.7 % (42.0-52.0); Hemoglobin 13.7 g/dl (14.0-18.0); Imm Gran Abs Auto 0.03 X10*3/uL (0.00-0.03); Imm Gran Pct Auto 0.3 % (0.0-0.4); Immature Retic Fraction 16.3 % (2.3-13.4); Lymphocytes Absolute Auto 2.3 X10*3/uL (1.2-4.9); Lymphocytes Percent Auto 21.6 % (20-40); Mean Corpuscular HGB Conc 32.1 g/dl (31.0-36.0); Mean Corpuscular Hemoglobin 27.5 pg (27.0-33.0); Mean Corpuscular Volume 85.7 fL (80.0-98.0); Mean Platelet Volume 10.7 fL (9.4-12.4); Monocytes Absolute Auto 0.9 X10*3/uL (0.1-1.2); Monocytes Percent Auto 8.5 % (2-11); Platelet Count 324 X10*3/uL (160-400); Red Blood Count 4.98 X10*6/uL (4.60-5.80); Red Cell Distribution Width 14.6 % (11.0-16.0); Retic HGB Equivalent 31.3 pg (30.0-35.0); Reticulocyte Percent 1.2 % (0.5-1.8); Reticulocytes Absolute 0.058 X10*6/uL (0.026-0.095); White Blood Count 10.8 X10*3/uL (4.8-10.8)
[2023-11-11 09:35] LABS: Alanine Aminotransferase 29 U/L (0-40); Albumin Level 4.1 g/dL (3.5-5.0); Alkaline Phosphatase 87 U/L (39-117); Anion Gap 10 (12-20); Aspartate Amino Transferase 19 U/L (5-37); Bilirubin Total 0.4 mg/dL (0.0-1.0); Blood Urea Nitrogen 14 mg/dL (9-16); Calcium 9.6 mg/dL (8.4-10.2); Carbon Dioxide 28 mmol/L (22-29); Chloride 107 mmol/L (96-108); Cholesterol 168 mg/dL (<200); Estimated Glomerular Filt Rate > 60; Glucose Random 101 mg/dL (60-115); HDL Cholesterol 34 mg/dL (>40); Iron 58 mcg/dL (45-160); LDL Cholesterol Calculated 98 mg/dL (<100); Percent Iron Saturation 25 % (15-50); Potassium 4.2 mmol/L (3.3-5.1); Sodium 141 mmol/L (135-145); Total Iron Binding Capacity 235 mcg/dL (228-428); Total Protein 7.5 g/dL (6.5-8.0); Triglycerides 184 mg/dL (<150); Unsaturated Iron Binding 177 ug/dL
[2023-11-11 09:44] LABS: Ferritin 242 ng/mL (20-250); Free T4 (Free Thyroxine) 0.87 ng/dL (0.71-1.85); Thyroid Stimulating Hormone 1.82 uIU/mL (0.32-4.0)
[2023-11-11 10:53] LABS: Folate 9.3 ng/mL (> or = 4.0); Vitamin B12 369 pg/mL (200-900)
== END 2023-11-11 07:46 | disposition home or self-care (01) ==
LOC: HO.LAB 07:45
PROVIDERS: PCP Internal Medicine; Visit Provider Internal Medicine
DX: N28.9 Disorder of kidney and ureter, unspecified (principal); E78.00 Pure hypercholesterolemia, unspecified
CPT/HCPCS: 36415; 80053; 80061; 82607; 82728; 82746; 83540; 84439; 84443; 85025; 85045

== ENCOUNTER 2023-11-16 09:28 | Outpatient (REF) | payer OTHER, SELFPAY ==
--- NOTE | ~2023-11-16 | US_ITS ---
EXAMINATION: US RETROPERITONEAL LIMITED (RENAL ONLY) CLINICAL INFORMATION: Disorder of kidney and ureter, unspecified. . COMPARISON: Ultrasound kidneys and bladder 12/12/2019. Ultrasound abdomen complete 03/19/2015. CT abdomen and pelvis without contrast 09/01/2014. TECHNIQUE: Real-time imaging of the kidneys. FINDINGS: RIGHT KIDNEY: 12.7 x 6.5 x 4.7 cm (SAG x AP x TRV). The kidney is normal in size, contour, and echogenicity. Renal cortical thickness is normal. No calculi or focal parenchymal lesions. No hydronephrosis. LEFT KIDNEY: 12.2 x 5.8 x 5.5 cm (SAG x AP x TRV). The kidney is normal in size, contour, and echogenicity. Renal cortical thickness is normal. No calculi or focal parenchymal lesions. No hydronephrosis. US/US renal BI IMPRESSION: Unremarkable examination.
== END 2023-11-16 09:29 | disposition home or self-care (01) ==
LOC: HO.US 09:28
PROVIDERS: PCP Internal Medicine; Visit Provider Internal Medicine
DX: N28.9 Disorder of kidney and ureter, unspecified (principal)
CPT/HCPCS: 76775

== ENCOUNTER 2023-12-13 13:25 | Outpatient (AMB) | payer OTHER, SELFPAY ==
--- NOTE | 2023-12-13 13:31 | MHC.OFFVIS ---
Intake Vital Signs 12/13/23 13:32 Height 5 ft 10 in Weight 258 lb BMI 37.0 BP 115/64 Blood Pressure Location Lt brachial Position Sitting Pulse 68 Intake Visit Reasons: Colonoscopy Screening Intake Note: Patient new consult for 1st Colonoscopy screening. Patient denies any GI issues. 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 male with past medical history of GERD, renal insufficiency, ALANA, anemia, asthma, hypercholesteremia, obesity is here today for pre colonoscopy screening.? Patient was sent to us by his PCP.? This is his first colonoscopy screening.? Patient denies any gastrointestinal symptoms in the past or at present.? Reports occasional acid reflux maybe once a week. Most of the time it is related to what he eats. Patient denies any dyspepsia, dysphagia or odynophagia. Denies any melena, hematochezia, unintentional weight loss or ribbon like stools. Denies any personal or family history of gastrointestinal disease, colon polyps, or cancer.? Denies history of difficulty with sedation or anesthesia in the past.? Diagnosed with sleep apnea in 2018. Uses CPAP every night.? Denies any history of cardiac, renal, pulmonary, or hepatic disease.?? No history of infectious? diseases like hepatitis A, B, C, HIV or tuberculosis.? Patient is not on any anticoagulation therapy. COUNTS INCLUDE 234 BEDS AT THE [facility] Medical History Acute kidney injury Asthma Hypercholesterolemia Impaired glucose tolerance Obesity (BMI 30-39.9) Obstructive sleep apnea Vitamin D deficiency Surgical History History of cholecystectomy Family History Mother Diabetes Asthma Father Diabetes High cholesterol Myocardial infarct Asthma Social History Housing: Apartment Alcohol intake: never Patient Tobacco Use Status: Never used Tobacco e-Cigarette/Vaping Use: Never Used Second Hand Smoke Exposure: No service: No Current occupational status: employed Cognitive needs: No Hearing needs: No Vision needs: Yes Review of Systems Const Denies weight gain and Denies weight loss ENT Reports no additional complaints, Denies dysphagia and Denies odynophagia Card Reports no additional complaints Resp Reports no additional complaints GI Denies abdominal pain, Denies belching, Denies melena, Denies bloating, Denies change in bowel habits, Denies dysphagia, Denies excessive flatus, Denies dyspepsia, Reports heartburn (Occasional), Denies diarrhea, Denies loose stools, Denies nausea, Denies odynophagia and Denies vomiting Reports no additional complaints Musc Reports no additional complaints Neuro Reports no additional complaints Psych Reports no additional complaints Endo Reports no additional complaints Physical Exam Const General: healthy appearing, no acute distress and well developed Nutritional Appearance: well nourished Orientation/consciousness: patient oriented x3 Resp Effort & Inspection: normal respiratory effort, able to speak in complete sentences, no tracheal deviation and symmetric chest movement Auscultation: clear to auscultation bilaterally Cardio Rate: regular rate GI Inspection: Yes normal to inspection and No distended Palpation (GI): Soft to palpation, not firm, nontender and No hepatosplenomegaly present Auscultation: normal bowel sounds General: Yes no CVA tenderness Back/Spine/Pelvis Back: no CVA tenderness Skin General skin exam: elasticity normal, turgor normal and dry skin Neuro General: patient oriented x3 Psych Appearance: grossly normal Mental Status: mental status grossly normal Assessment & Plan Assessment & Plan (1) Colon cancer screening: Code(s): Z12.11 - Encounter for screening for malignant neoplasm of colon (2) GERD (gastroesophageal reflux disease): Code(s): K21.9 - Gastro-esophageal reflux disease without esophagitis Qualifiers: Esophagitis presence: esophagitis presence not specified Qualified Code(s): K21.9 - Gastro-esophageal reflux disease without esophagitis (3) Obstructive sleep apnea: Comment: And this is going to be along visit because we going to do a Humira Code(s): G47.33 - Obstructive sleep apnea (adult) (pediatric) Plan Patient denies any cardiac or respiratory symptoms.? Denies any issues with anesthesia in the past.?? No history infectious diseases in the past or present.? Not on any anticoagulation therapy.? No family or personal history of colon cancer or polyps.? Occasional GERD related to food. Patient will avoid dietary triggers late night snacking. Staying upright for minimum 3 hours after meals discussed with patient. Patient denies melena, hematochezia, unintentional weight loss or ribbon like stools.? Discussed at length the pre-procedure,? prep, diet & medications as well as what to expect prior, during and after the procedure.?? Stressed the importance of good bowel prep. ?Recommended the use of Vaseline or Calmoseptine OTC & baby wipes with bowel movements to promote comfort.? ?Patient verbalizes understanding and agrees to plan of care.? He was given the opportunity to ask questions and all questions answered.? We will see him after the procedure.? Medications: New bisacodyl (Dulcolax (bisacodyl)) take 4 tabs at noon the day before your colonoscopy 20 mg (4 x 5 mg) PO ONCE 1 day 4 tabs 0RF Z12.11 - Encounter for screening for malignant neoplasm of colon polyethylene glycol 3350 (Miralax) As directed by gastro[facility]ology department at [facility] 238 grams PO ONCE 238 grams 0RF Z12.11 - Encounter for screening for malignant neoplasm of colon Discontinued albuterol sulfate 90 mcg/actuation (ProAir HFA) Discontinued Reason: Patient no longer taking 2 puffs inhalation Q6H PRN 8.5 grams 0RF Wheezing J45.20 - Mild intermittent asthma, uncomplicated Coding Level of Care Code New Pt Level 3 (12015) Diagnoses Colon cancer screening Z12.11 Gastroesophageal reflux disease, unspecified whether esophagitis present K21.9 Esophagitis presence: esophagitis presence not specified Obstructive sleep apnea G47.33 Time Spent (min) 40 Comment 30 minutes spent with patient and additional 10 minutes spent reviewing his records
[2023-12-13 13:32] VITALS: BP 115/64; PULSE 68; BMI 37.0
== END 2023-12-13 13:49 | disposition home or self-care (01) ==
PROVIDERS: PCP Internal Medicine; Visit Provider Nurse Practitioner Family
DX: Z12.11 Encounter for screening for malignant neoplasm of colon (principal); K21.9 Gastro-esophageal reflux disease without esophagitis; G47.33 Obstructive sleep apnea (adult) (pediatric); Z01.818 Encounter for other preprocedural examination
CPT/HCPCS: 99203

== ENCOUNTER → 2023-12-13 13:25 | Outpatient (BNVA) | payer OTHER, SELFPAY | PROVIDERS: PCP Internal Medicine; Visit Provider Nurse Practitioner Family | DX: Z12.11 Encounter for screening for malignant neoplasm of colon (principal); K21.9 Gastro-esophageal reflux disease without esophagitis; G47.33 Obstructive sleep apnea (adult) (pediatric) | CPT/HCPCS: 99202 ==

== ENCOUNTER 2023-12-22 22:22 | Emergency (ER) | payer OTHER, SELFPAY ==
--- NOTE | ~2023-12-22 | XR_ITS ---
EXAMINATION: XR CHEST CLINICAL INFORMATION: Cough. COMPARISON: None available. TECHNIQUE: 2 views of the chest were obtained. FINDINGS: No significant abnormality is noted involving the heart, lungs, mediastinum, bony thorax or soft tissues. XR/XR chest 2V IMPRESSION: Unremarkable chest examination.
[2023-12-22 22:30] VITALS: BP 134/66; PULSE 67; RESP 18; TEMP 36.8; O2SAT 95; BMI 37.2
[2023-12-22 23:18] LABS: Influenza A PCR NEGATIVE (Negative); Influenza B PCR NEGATIVE (Negative); Resp Syncy Virus RNA Qual PCR NEGATIVE (Negative); SARS COV2 PCR INHOUSE NEGATIVE (Negative)
[2023-12-23 00:28] VITALS: BP 124/64; PULSE 63; RESP 17; TEMP 36.9; O2SAT 97
--- NOTE | 2023-12-23 00:57 | ED_ITS ---
HPI - URI/Sore Throat General Chief Complaint: Upper Respiratory Symptoms Stated Complaint: cough sore back muscles Time Seen by Provider: 12/23/23 00:39 Source: patient Mode of arrival: ambulatory Limitations: no limitations History of Present Illness HPI Narrative: Patient has been coughing since yesterday with slight congestion body aches had COVID flu RSV test done prior to my evaluation which was negative chest x-ray negative no other family member sick Related Data Home Medications Medication Instructions Recorded Confirmed epinephrine 0.3 mg/0.3 mL 0.3 mg IM Q10M PRN Anaphylaxis 12/02/20 10/28/23 injection, auto-injector albuterol sulfate 90 mcg/actuation 2 puff inhalation Q6H PRN 12/13/23 aerosol inhaler (Ventolin HFA) Previous Rx's Medication Instructions Recorded famotidine 20 mg tablet (Pepcid) 20 mg PO BEDTIME #90 tabs 10/28/23 bisacodyl 5 mg tablet,delayed 20 mg (4 x 5 mg) PO ONCE 1 day #4 12/13/23 release (Dulcolax (bisacodyl)) tabs polyethylene glycol 3350 17 238 g PO ONCE #238 grams 12/13/23 gram/dose oral powder (Miralax) codeine 10 mg-guaifenesin 100 mg/5 10 ml PO Q6H PRN cough #237 mL 12/23/23 mL oral liquid ibuprofen 600 mg tablet 600 mg PO Q6H PRN fever or pain 12/23/23 #30 tabs Allergies Allergy/AdvReac Type Severity Reaction Status Date / Time levofloxacin [From LEVAQUIN] Allergy Severe THROAT Verified 12/22/23 22:30 CLOSING Review of Systems Review of Systems: Yes all other systems are reviewed and are negative REPLACED BY [facility] Past Medical History Medical History Acute kidney injury Impaired glucose tolerance Obstructive sleep apnea Asthma Hypercholesterolemia Obesity (BMI 30-39.9) Vitamin D deficiency Surgical History History of cholecystectomy Family History Family History Mother Diabetes Asthma Father Diabetes High cholesterol Myocardial infarct Asthma Social History Social History Housing: Apartment Alcohol intake: never Patient Tobacco Use Status: Never used Tobacco e-Cigarette/Vaping Use: Never Used Second Hand Smoke Exposure: No Advance Directives: No Advance Directives Information Provided: Yes service: No Current occupational status: employed Cognitive needs: No Hearing needs: No Vision needs: Yes Physical Exam Vital Signs: Vital Signs: Last Vital Signs Temp 98.4 F 12/23/23 00:28 Pulse 63 12/23/23 00:28 Resp 17 12/23/23 00:28 BP 124/64 12/23/23 00:28 Pulse Ox 97 12/23/23 00:28 O2 Del Method Room Air 12/23/23 00:28 BMI result Body Mass Index 37.2 Appearance: Alert. Oriented X3. No acute distress. ENT: Pharynx normal. Oral Mucosa moist Neck: Normal inspection. Neck supple. CVS: Normal heart rate and rhythm. Pulses normal. Respiratory: No respiratory distress. Equal air entry bilateral, no wheezing/rales/rhonchi Abdomen: Soft and nontender. Skin: Skin warm and dry. Normal skin color. Normal skin turgor. Extremities: No lower extremity edema. No calf tenderness Neuro: Oriented X 3. Medical Decision Making Differential Diagnosis Differential Diagnoses: The differential diagnosis associated with the prese ntation includes Viral bronchitis/bronchitis/pneumonia/COVID/flu/RSV Lab Data MDM Lab Attestation statement: I reviewed the patient's lab results. Labs: Lab Results 12/22/23 Range/Units 22:36 Influenza Type A (PCR) NEGATIVE (Negative) Influenza Type B (PCR) NEGATIVE (Negative) RSV RNA Qual (PCR) NEGATIVE (Negative) SARS-CoV-2 RNA (RT-PCR) NEGATIVE (Negative) Discharge Plan Discharge Clinical Impression: Upper respiratory infection Patient Disposition: Home, Self-Care Instructions: Upper Respiratory Infection (ED) Additional Instructions: Drink plenty of fluid Cough syrup as prescribed Tylenol/Motrin for fever body aches Your COVID/flu/RSV negative Prescriptions: New codeine-guaifenesin 10-100 mg/5 mL liquid 10 ml PO Q6H PRN (Reason: cough) Qty: 237 0RF ibuprofen 600 mg tablet 600 mg PO Q6H PRN (Reason: fever or pain) Qty: 30 0RF No Action epinephrine 0.3 mg/0.3 mL auto-injector 0.3 mg IM Q10M PRN (Reason: Anaphylaxis) Rx Instructions: for 2 doses famotidine [Pepcid] 20 mg tablet 20 mg PO BEDTIME Qty: 90 0RF albuterol sulfate [Ventolin HFA] 90 mcg/actuation HFA aerosol inhaler 2 puff inhalation Q6H PRN bisacodyl [Dulcolax (bisacodyl)] 5 mg tablet,delayed release (DR/EC) 20 mg PO ONCE 1 Days Qty: 4 0RF Rx Instructions: take 4 tabs at noon the day before your colonoscopy polyethylene glycol 3350 [Miralax] 17 gram/dose powder 238 g PO ONCE Qty: 238 0RF Rx Instructions: As directed by gastroenterology department at [facility] Stand Alone Forms: Work/School Release
[2023-12-23] MEDS: guaiFEN/Codeine SF 200/20/10ML 10 ML LIQUID PO (01:19)
== END 2023-12-23 01:20 | disposition home or self-care (01) ==
PROVIDERS: Emergency Provider Internal Medicine; PCP Internal Medicine
DX: J06.9 Acute upper respiratory infection, unspecified (principal); R05.9 Cough, unspecified; R52 Pain, unspecified; J45.909 Unspecified asthma, uncomplicated; Z11.52 Encounter for screening for COVID-19; Z20.828 Contact with and (suspected) exposure to other viral communicable diseases
CPT/HCPCS: 0241U; 71046; 99283

== ENCOUNTER 2024-04-04 08:26 | Day surgery (SDC) | payer OTHER, SELFPAY ==
[2024-04-04 08:56] VITALS: BMI 37.1
[2024-04-04 09:01] VITALS: BP 144/71; PULSE 62; RESP 15; TEMP 36.6; O2SAT 95
--- NOTE | 2024-04-04 09:05 | MHC.SHP ---
Pre-Procedural Eval Section A - 24 Hr Update-Section A only Date of Service: 04/04/24 Section B - Complete if H&P > 30 days Chief Complaint: screening Relevant Family History (Specify if Yes): No Relevant Social History: None Present Medications: see Short Stay Collaborative assessment Medical History: Significant History (Acute kidney injury Asthma Hypercholesterolemia Impaired glucose tolerance Obesity (BMI 30-39.9) Obstructive sleep apnea Vitamin D deficiency) History of Previous Operations: Relevant previous surgery/procedure and date(s) (cholecystectomy) Allergies: Allergies Allergy/AdvReac Type Severity Reaction Status Date / Time levofloxacin [From LEVAQUIN] Allergy Severe THROAT Verified 04/04/24 08:56 CLOSING Review of Systems Sugical H&P ROS: Negative: Constitution, Cardiovascular, Respiratory, Neurological, Psychiatric, Hem-Onc, Allergic/Immunologic, Gastrointestinal, Genitourinary, Musculoskeletal, Integumentary, Endocrine and Eyes/Ears/Nose/Throat Exam Surgical H&P Exam: Normal: HEENT, Normal: Heart, Normal: Lungs, Normal: Extremities, Normal: Abdomen, Normal: Skin and Normal: Neurological Plan Diagnosis/Plan: Unchanged I have reviewed the history and physical and performed a pertinent physical examination on my patient. No changes have occurred unless specified. Time Spent With Patient Time: Total time managing care of this patient today ____ minutes.
--- NOTE | 2024-04-04 09:12 | P.CONAN_ITS ---
[facility] Active Problems Active Problems: All Active Problems Colon cancer screening (Acute) Renal insufficiency (Acute) GERD (gastroesophageal reflux disease) (Acute) COVID-19 virus infection (Acute) Left foot pain (Acute) Anemia (Acute) Annual physical exam (Acute) Acute kidney injury (Acute) Obstructive sleep apnea (Acute) Impaired glucose tolerance (Acute) Asthma (Acute) Hypercholesterolemia (Acute) Obesity (BMI 30-39.9) (Acute) Past Medical History Medical History (Updated 04/04/24 @ 08:56 by Nancy Iyer RN) Arthritis Heartburn Acute kidney injury Impaired glucose tolerance Obstructive sleep apnea Asthma Hypercholesterolemia Obesity (BMI 30-39.9) Vitamin D deficiency Family History Family History Mother Diabetes Asthma Father Diabetes High cholesterol Myocardial infarct Asthma Family history of problems with anesthesia: No Surgical History Surgical History History of cholecystectomy History of Problems with Anesthesia: No Social History Social History Housing: Apartment Alcohol intake: never Patient Tobacco Use Status: Never used Tobacco e-Cigarette/Vaping Use: Never Used Second Hand Smoke Exposure: No Use of substances other than those prescribed or required for medical reasons: No Are you DNR?: No Advance Directives: No Advance Directives Information Provided: Yes service: No Current occupational status: employed Cognitive needs: No Hearing needs: No Vision needs: Yes Meds Allergies Allergy/AdvReac Type Severity Reaction Status Date / Time levofloxacin [From LEVAQUIN] Allergy Severe THROAT Verified 04/04/24 08:56 CLOSING Home Medications ?Medication ?Instructions ?Recorded ?Confirmed ?Last Taken ?Type epinephrine 0.3 mg/0.3 mL 0.3 mg IM Q10M PRN Anaphylaxis 12/02/20 04/04/24 Unknown History injection, auto-injector albuterol sulfate 90 mcg/actuation 2 puff inhalation Q6H PRN 12/13/23 04/04/24 Unknown History aerosol inhaler (Ventolin HFA) Shortness Of Breath Or Wheezing Exam Height,Weight and Vital Signs: Height 5 ft 11 in Weight 120.656 kg Last Vital Signs Temp 97.9 F 04/04/24 09:01 Pulse 62 04/04/24 09:01 Resp 15 04/04/24 09:01 BP 144/71 H 04/04/24 09:01 Pulse Ox 95 04/04/24 09:01 O2 Del Method Room Air 04/04/24 09:01 Airway Mallampati Class: II TM Dist: >3cm Neck ROM: Full Heart: rrr Lungs: cta Assessment and Plan Assessment Anesthesia Assessment: Anesthesia Plan Discussed and Chart Reviewed Final Anesthetic Review Family History of Problems with Anesthesia: No History of Problems with Anesthesia: No NPO: Yes ASA Class: II Final Preanesthetic Review: No Changes in Pt Med Stat, Meds/Allgs Chart Reviewed and Consent Obtained/Reviewed Patient Risk: Low Procedure Risk: Low Anesthetic Plan Anesthetic Plan: MAC: Disposition: Standard PACU
[2024-04-04] MEDS: Lactated Ringers 1,000 ML 50 ML IVCONT (09:50)
--- NOTE | 2024-04-04 10:33 | P.OPN-COLO_ITS ---
Colonoscopy Operative Note Operative Note Date of Service: 04/04/24 Narrative: Operative Information Procedure Description: Colonoscopy Indication: screening Anesthesia: MAC COLONOSCOPY Instrument: Olympus variable stiffness pediatric scope 190L Colonoscopy Monitoring: Vital signs and clinical assessment, continuous EKG monitoring, Pulse oximetry, Carbon Dioxide monitoring and blood pressure monitoring were done throughout the procedure. Colon withdrawal time was 15 minutes. Procedure: The patient was placed in the left lateral decubitis position and pre-procedure medications were administered. After a digital rectal examination of the ano-rectum, the video colonoscope was inserted into the rectum and advanced through the colon to the cecum/TI. The colonoscope was slowly withdrawn in a retrograde panoramic fashion and the colon mucosa was carefully examined including a retroflexed view of the rectum. Findings and interventions are described below. Procedure Difficulty: difficult, due to tortuous colon Findings: Terminal Ileum-not intubated Cecum:normal Ascending Colon: normal Transverse Colon -normal Descending Colon:normal Sigmoid Colon: normal Rectum: Retroflexion with small internal hemorrhoids seen, grade I Anorectum - normal Intervention: none Colon preparation: [place] Bowel Preparation Scale Right colon; 2 Transverse colon: 2 Left colon; 2 (0 = Unprepared colon segment with mucosa not seen due to solid stool that cannot be cleared. 1 = Portion of mucosa of the colon segment seen, but other areas of the colon segment not well seen due to staining, residual stool and/or opaque liquid. 2 = Minor amount of residual staining, small fragments of stool and/or opaque liquid, but mucosa of colon segment seen well. 3 = Entire mucosa of colon segment seen well with no residual staining, small fragments of stool or opaque liquid) Impression and Post Procedure Diagnosis: internal hemorrhoids Plan: High fiber diet leaflet Avoid straining at stool, epsom salts and sitz bath, anusol supps or cream Repeat Colonoscopy in 10 years or earlier if clinically indicated Above findings were reviewed with the patient and relevant handouts were provided if indicated.
[2024-04-04 10:37] VITALS: BP 112/68; PULSE 66; RESP 16; TEMP 36.1; O2SAT 97
[2024-04-04 10:52] VITALS: BP 118/74; PULSE 59; RESP 16; TEMP 36.1; O2SAT 98
== END 2024-04-04 11:46 | disposition home or self-care (01) ==
PROVIDERS: PCP Internal Medicine; Visit Provider Internal Medicine Gastroenterology
PROC: 0DJD8ZZ Inspection of Lower Intestinal Tract, Via Natural or Artificial Opening Endoscopic (ICD-10-PCS; CPT 45378; principal; 2024-04-04 10:00)
DX: Z12.11 Encounter for screening for malignant neoplasm of colon (principal); K64.0 First degree hemorrhoids; Q43.8 Other specified congenital malformations of intestine; J45.909 Unspecified asthma, uncomplicated; G47.33 Obstructive sleep apnea (adult) (pediatric); Z88.1 Allergy status to other antibiotic agents
CPT/HCPCS: 45378; J2704

== ENCOUNTER → 2024-04-04 08:26 | Outpatient (BNV) | payer OTHER, SELFPAY | PROVIDERS: PCP Internal Medicine; Visit Provider Internal Medicine Gastroenterology | DX: Z12.11 Encounter for screening for malignant neoplasm of colon (principal); K64.0 First degree hemorrhoids | CPT/HCPCS: 45378 ==

== ENCOUNTER 2024-04-16 16:31 | Outpatient (AMB) | payer OTHER, SELFPAY ==
--- NOTE | 2024-04-16 16:31 | A.OFFVIS_ITS ---
Vital Signs 04/16/24 16:35 Height 5 ft 11 in Weight 267 lb 3.204 oz BMI 37.3 BP 130/72 Blood Pressure Location Lt brachial Position Sitting Pulse 62 Pulse Source Pulse Oximeter Pulse Oximetry (%) 95 Oxygen Delivery Method Room Air Intake Visit Reasons: s/p colon Intake Note: Leo presents in office today for a scheduled post op (colo) FUV. CC: Pt denies any complications post op. Pt is here strictly to discuss results of procedure. Power Technician Required: No Allergies levofloxacin [From LEVAQUIN] Allergy (Severe, Verified 04/16/24 16:35) THROAT CLOSING HPI HPI s/p colon: Details: LAST VISIT Colon cancer screening GERD (gastroesophageal reflux disease) Obstructive sleep apnea Plan Patient denies any cardiac or respiratory symptoms.? Denies any issues with anesthesia in the past.?? No history infectious diseases in the past or present.? Not on any anticoagulation therapy.? No family or personal history of colon cancer or polyps.? Occasional GERD related to food. Patient will avoid dietary triggers late night snacking. Staying upright for minimum 3 hours after meals discussed with patient. Patient denies melena, hematochezia, unintentional weight loss or ribbon like stools.? Discussed at length the pre-procedure,? prep, diet & medications as well as what to expect prior, during and after the procedure.?? Stressed the importance of good bowel prep. ?Recommended the use of Vaseline or Calmoseptine OTC & baby wipes with bowel movements to promote comfort.? ?Patient verbalizes understanding and agrees to plan of care.? He was given the opportunity to ask questions and all questions answered.? We will see him after the procedure.? Medications New bisacodyl (Dulcolax (bisacodyl)) take 4 tabs at noon the day before your colonoscopy 20 mg (4 x 5 mg) PO ONCE 1 day 4 tabs 0RF Z12.11 polyethylene glycol 3350 (Miralax) As directed by gastroenterology department at [facility] 238 grams PO ONCE 238 grams 0RF Z12.11 Discontinued albuterol sulfate 90 mcg/actuation (ProAir HFA) Discontinued Reason: Patient no longer taking 2 puffs inhalation Q6H PRN 8.5 grams 0RF Wheezing J45.20 COLONOSCOPY Findings: Terminal Ileum-not intubated Cecum:normal Ascending Colon: normal Transverse Colon -normal Descending Colon:normal Sigmoid Colon: normal Rectum: Retroflexion with small internal hemorrhoids seen, grade I Anorectum - normal Intervention: none Colon preparation: [place] Bowel Preparation Scale Right colon; 2 Transverse colon: 2 Left colon; 2 (0 = Unprepared colon segment with mucosa not seen due to solid stool that cannot be cleared. 1 = Portion of mucosa of the colon segment seen, but other areas of the colon segment not well seen due to staining, residual stool and/or opaque liquid. 2 = Minor amount of residual staining, small fragments of stool and/or opaque liquid, but mucosa of colon segment seen well. 3 = Entire mucosa of colon segment seen well with no residual staining, small fragments of stool or opaque liquid) Impression and Post Procedure Diagnosis: internal hemorrhoids Plan: High fiber diet leaflet Avoid straining at stool, epsom salts and sitz bath, anusol supps or cream Repeat Colonoscopy in 10 years or earlier if clinically indicated TODAY'S VISIT Patient is here today for follow-up and to discuss colonoscopy results. Patient denies any ill effects from the prep, anesthesia or procedure itself. Patient reports that he has been feeling well. No polyps found. Normal colon mucosa. Small internal hemorrhoids found. Patient denies any family history of colon cancer. Patient denies any melena, hematochezia. Patient denies any dyspepsia, dysphagia or odynophagia. Patient denies any GI concerning symptoms. [facility] Medical History Arthritis Heartburn Acute kidney injury Impaired glucose tolerance Obstructive sleep apnea Asthma Hypercholesterolemia Obesity (BMI 30-39.9) Vitamin D deficiency Surgical History H/O colonoscopy History of cholecystectomy Family History Mother Diabetes Asthma Father Diabetes High cholesterol Myocardial infarct Asthma Social History Housing: Apartment Alcohol intake: never Patient Tobacco Use Status: Never used Tobacco e-Cigarette/Vaping Use: Never Used Second Hand Smoke Exposure: No service: No Current occupational status: employed Cognitive needs: No Hearing needs: No Vision needs: Yes Review of Systems Const Denies weight gain and Denies weight loss ENT Reports no additional complaints, Denies dysphagia and Denies odynophagia Card Reports no additional complaints Resp Reports no additional complaints GI Denies abdominal pain, Denies belching, Denies melena, Denies bloating, Denies change in bowel habits, Denies dysphagia, Denies excessive flatus, Denies dyspepsia, Denies heartburn, Denies diarrhea, Denies loose stools, Denies nausea, Denies odynophagia and Denies vomiting Reports no additional complaints Musc Reports no additional complaints Neuro Reports no additional complaints Psych Reports no additional complaints Endo Reports no additional complaints Physical Exam Vital Signs: Last Vital Signs Pulse 62 04/16/24 16:35 BP 130/72 04/16/24 16:35 Pulse Ox 95 04/16/24 16:35 Oxygen Delivery Method Room Air 04/16/24 16:35 BMI result Body Mass Index 37.3 Const General: healthy appearing and no acute distress Nutritional Appearance: obese Orientation/consciousness: patient oriented x3 Resp Effort & Inspection: normal respiratory effort, able to speak in complete sentences, no tracheal deviation and symmetric chest movement Auscultation: clear to auscultation bilaterally Cardio Rate: regular rate GI Inspection: Yes normal to inspection, No distended and Yes obesity Palpation (GI): Soft to palpation, not firm, nontender and No hepatosplenomegaly present Auscultation: normal bowel sounds General: Yes no CVA tenderness Back/Spine/Pelvis Back: no CVA tenderness Skin General skin exam: elasticity normal, turgor normal and dry skin Neuro General: patient oriented x3 Psych Appearance: grossly normal Mental Status: mental status grossly normal Assessment & Plan Assessment & Plan (1) Status post colonoscopy: Code(s): Z98.890 - Other specified postprocedural states Plan [place] screen in 10 years, sooner if clinically necessary. Patient will call our office if he will find that there is a family history of CRC for earlier screening. Patient will call our office if he will have any GI concerning symptoms. He is agreeable to this plan and verbalizes understanding of instructions. He was given the opportunity to ask questions and all questions answered. Thank you for allowing me to participate in his care Coding Level of Care Code Est Pt Level 3 (56617) Diagnoses Status post colonoscopy Z98.890 Time Spent (min) 25 Comment 15 minutes spent with patient and additional 10 minutes spent reviewing his records
[2024-04-16 16:35] VITALS: BP 130/72; PULSE 62; O2SAT 95; BMI 37.3
== END 2024-04-17 15:18 | disposition home or self-care (01) ==
PROVIDERS: PCP Internal Medicine; Visit Provider Nurse Practitioner Family
DX: Z98.890 Other specified postprocedural states (principal)
CPT/HCPCS: 99213

== ENCOUNTER → 2024-04-16 16:31 | Outpatient (BNVA) | payer OTHER, SELFPAY | PROVIDERS: PCP Internal Medicine; Visit Provider Nurse Practitioner Family | DX: Z98.890 Other specified postprocedural states (principal) | CPT/HCPCS: 99212 ==

== ENCOUNTER 2024-05-01 13:45 | Outpatient (AMB) | payer OTHER, SELFPAY ==
[2024-05-01 13:53] VITALS: BP 124/72; PULSE 64; O2SAT 98; BMI 37.0
--- NOTE | 2024-05-01 13:53 | A.OFFPC_ITS ---
Vital Signs 05/01/24 13:53 Height 5 ft 11 in Weight 265 lb BMI 37.0 BP 124/72 Blood Pressure Location Lt brachial Position Sitting Pulse 64 Pulse Source Pulse Oximeter Pulse Oximetry (%) 98 Oxygen Delivery Method Room Air Intake Visit Reasons: PE Allergies levofloxacin [From LEVAQUIN] Allergy (Severe, Verified 05/01/24 13:54) THROAT CLOSING Medication List - Last Reconciled 05/01/24 by Thanh Tuttle MD albuterol sulfate 90 mcg/actuation (Ventolin HFA) 2 puffs inhalation Q6H PRN epinephrine 0.3 mg IM Q10M PRN famotidine (Pepcid) 20 mg PO BEDTIME Tobacco use date assessed: 05/01/24 Dental Screening Dental Screen Date: 05/01/24 Did you have a dental visit in the last 12 months?: No Did you have a dental problem in the last 6 months where you did not have access to dental care?: No Was dental information given to patient?: Patient has dentist HPI PE HPI Details 43-year-old obese male with impaired glu cose tolerance hypercholesterolemia asthma GERD obstructive sleep apnea renal insufficiency coming in for physical exam last seen in 10/19/2023. Patient was referred to Gastroenterology for colon cancer screening. Patient did have colonoscopy done in 04/04/2024 showing internal hemorrhoids and 10 years. complains medial R ankle pain 2 years trauma- complains of swelling xray in 2019 negative [facility] Medical History (Updated 05/01/24 @ 14:44 by Thanh Tuttle MD) Colon cancer screening Arthritis Heartburn Acute kidney injury Impaired glucose tolerance Obstructive sleep apnea Asthma Hypercholesterolemia Obesity (BMI 30-39.9) Vitamin D deficiency Surgical History H/O colonoscopy History of cholecystectomy Family History Mother Diabetes Asthma Father Diabetes High cholesterol Myocardial infarct Asthma Social History Housing: Apartment Alcohol intake: never Patient Tobacco Use Status: Never used Tobacco e-Cigarette/Vaping Use: Never Used Second Hand Smoke Exposure: No service: No Current occupational status: employed Cognitive needs: No Hearing needs: No Vision needs: Yes Questionnaire PHQ-9 Over the last 2 weeks, how often have you been bothered by any of the following problems? 1. Little interest or pleasure in doing things: not at all 2. Feeling down, depressed, or hopeless: not at all 3. Trouble falling or staying asleep, or sleeping too much: not at all 4. Feeling tired or having little energy: not at all 5. Poor appetite or overeating: not at all 6. Feeling bad about yourself - or that you are a failure or have let yourself or your family down: not at all 7. Trouble concentrating on things, such as reading the newspaper or watching t elevision: not at all 8. Moving or speaking so slowly that other people could have noticed. Or the opposite - being so fidgety or restless that you have been moving around a lot more than usual: not at all 9. Thoughts that you would be better off or of hurting yourself in some way: not at all Total score: 0 Depression Screening Interpretation: Negative Depression Screening Done: Yes Source: Developed by Drs. Pedro Benitez, Jacinta Norris, Leon Fortune and colleagues, with an educational mendy from [employer]. Thrive Questionnaire Date Thrive assessed: 05/01/24 I am a: Patient What is your living situation today?: I have a steady place to live Within the past 12 months, did the food you bought not last and you didn't have the money to get more?: Never true Within the past 12 months, did you worry whether your food would run out before you got money to buy more?: Never true Do you have trouble paying for medicines?: No Do you have trouble getting transportation to medical appointments?: No Do you have trouble paying your heating and electricity bill?: No Do you have trouble taking care of your child, family member or friend?: No Do you have trouble with day-to-day activities such as bathing, preparing meals, shopping, managing finances, etc.?: No Are you currently unemployed and looking for a job?: No Are you interested in more education?: No Currently or been in a relationship where the following occur: No concerns reported THRIVE Score: 0 AUDIT C Alcohol Use Questionnaire (AUDIT-C) 1. How often do you have a drink containing alcohol?: Never 2. How many drinks containing alcohol do you have on a typical day when you are drinking?: 1 or 2 3. How often do you have six or more drinks on one occasion?: Never Total Score: 0 AUSTEN-7 AMB Questionnaire AUSTEN-7 Date AUSTEN - 7 assessed: 05/01/24 Feeling nervous, anxious, or on edge: 0 = Not at all Not being able to stop or control worryin = Not at all Worrying too much about different things: 0 = Not at all Trouble relaxin = Not at all Being so restless that it is hard to sit still: 0 = Not at all Becoming easily annoyed or irritable: 0 = Not at all Feeling afraid as if something awful might happen: 0 = Not at all Total AUSTEN-7 score (0-4 normal; 5-9 mild; 10-14 moderate; 15-21 severe): 0 Source: Developed by Drs. Pedro Benitez, Jacinta Norris, Leon Fortune and colleagues, with an educational mendy from [employer]. Review of Systems Const Denies poor appetite and Denies weakness Eyes Denies no additional complaints ENT Reports Normal hearing present, Denies dizziness, Denies nasal congestion, Denies tinnitus and Denies sore throat Card Denies chest pain, Denies syncope, Denies rapid heart rate and Denies dyspnea Resp Denies cough and Denies dyspnea GI Denies change in stool character, Reports constipation, Denies diarrhea, Denies nausea and Denies vomiting Denies dysuria and Denies urinary frequency Neuro Reports Normal hearing present, Denies confusion, Denies dizziness, Denies syncope and Denies weakness Psych Denies confusion Physical exam (Primary Care) Vital Signs: Last Vital Signs Pulse 64 05/01/24 13:53 BP 124/72 05/01/24 13:53 Pulse Ox 98 05/01/24 13:53 Oxygen Delivery Method Room Air 05/01/24 13:53 BMI result Body Mass Index 37.0 Tobacco/Smoking Status: Tobacco use Status Tobacco use date assessed 05/01/24 05/01/24 13:57 Patient Tobacco Use Status Never used Tobacco 05/01/24 13:57 e-Cigarette/Vaping Use Never Used 05/01/24 13:57 PHQ-9: PHQ-9 Score PHQ-9: Total score 0 05/01/24 13:57 Depression Screening Interpretation: Negative Thrive Assessment: Date of Thrive Assessment Date Thrive assessed 05/01/24 05/01/24 13:57 Currently or been in a relationship where the following occur: No concerns reported Const General: No confusion Orientation/consciousness: No confusion HENMT Head: Yes normocephalic Ears: external ears normal and TM's normal bilaterally Face and sinus: Yes normal facial exam Mouth: moist mucous membranes Throat: Yes tonsils normal Eyes Conjunctivae: conjunctivae normal Pupils: Equal, round and reactive pupils present and Pupil accommodation reflex normal Direct Ophthalmoscopy: normal light reflex Neck Neck: No lymphadenopathy Thyroid: Thyroid normal Chest Chest palpation & inspection: normal inspection of the chest Resp Effort & Inspection: normal respiratory effort and no audible wheezes Auscultation: clear to auscultation bilaterally, no crackles, no wheezes and lung sounds not diminished Cardio Rate: regular rate Rhythm: regular rhythm Peripheral pulses: radial pulses present and dorsalis pedis present GI Palpation (GI): no masses Auscultation: normal bowel sounds and normoactive bowel sounds Rectal Exam - Male: Yes deferred Skin General skin exam: no rashes or lesions noted Rashes: no rashes Neuro General: No confusion Cranial nerves: Yes Equal, round and reactive pupils present and Yes Normal hearing present Cognition (Neuro): normal cognition Gait exam (Neuro): Normal gait present Motor exam (neuro): 5/5 motor strength present throughout Deep tendon reflexes (DTR's): Right brachioradialis reflex intensity grade: 2+, Left brachioradialis reflex intensity grade: 2+, Right patellar reflex intensity grade: 2+ and Left patellar reflex intensity grade: 2+ Extrem General: No edema Assessment and Plan Assessment & Plan (1) Annual physical exam: Code(s): Z00.00 - Encounter for general adult medical examination without abnormal findings Plan: Patient is advised to eat healthy, keep well hydrated, keep active and have ad equate sleep. (2) Obesity (BMI 30-39.9): Code(s): E66.9 - Obesity, unspecified Plan: Diet and exercise (3) Hypercholesterolemia: Code(s): E78.00 - Pure hypercholesterolemia, unspecified Plan: Avoid fried foods, chicken skin, eggs, butter margarine, pastries and meat. Be it pork or beef they have a lot of cholesterol LDL goal of less than 130 and triglyceride of less than 150 (4) Asthma: Code(s): J45.909 - Unspecified asthma, uncomplicated Qualifiers: Asthma severity: mild Asthma persistence: intermittent Asthma complication type: uncomplicated Qualified Code(s): J45.20 - Mild intermittent asthma, uncomplicated Plan: Continue with inhalers on albuterol (5) Impaired glucose tolerance: Code(s): R73.02 - Impaired glucose tolerance (oral) Plan: Decrease the amount of carbohydrate intake, pasta, bread, rice and potatoes are all sugar and that is aside from all the sweet stuff, remember that fruits are good but they are Sweet also. (6) Obstructive sleep apnea: Comment: And this is going to be along visit because we going to do a Humira--uses cpap Code(s): G47.33 - Obstructive sleep apnea (adult) (pediatric) Plan: Continue to use the CPAP more than 4 hours a night and benefits from this. (7) GERD (gastroesophageal reflux disease): Code(s): K21.9 - Gastro-esophageal reflux disease without esophagitis Qualifiers: Esophagitis presence: esophagitis presence not specified Qualified Code(s): K21.9 - Gastro-esophageal reflux disease without esophagitis Plan: Avoid the foods that causes that usually spicy foods, tomato products, juices, coffee, soda and foods that your sensitive to. After eating do not lie down, allow 3-4 hours before in lie down. And keep the head of bed above 30 degrees to avoid the acid from going up. (8) Right ankle swelling: Code(s): M25.471 - Effusion, right ankle Plan: discussed about peripheral vascular disease and reassurance for now. if persist to call Orders: Orders Hemoglobin A1c 6 Months R73.02 - Impaired glucose tolerance (oral) Thyroid Stimulating Hormone 6 Months E78.00 - Pure hypercholesterolemia, unspecified Complete Blood Count Auto Diff 6 Months E78.00 - Pure hypercholesterolemia, unspecified Comprehensive Met. Panel 6 Months E78.00 - Pure hypercholesterolemia, unspecified Lipid Panel 6 Months E78.00 - Pure hypercholesterolemia, unspecified Free T4 (Free Thyroxine) 6 Months E78.00 - Pure hypercholesterolemia, unspecified Vitamin B12 and Folate 6 Months E78.00 - Pure hypercholesterolemia, unspecified Coding Level of Care Code Est Pt Prev Care 40-64y(02451) Diagnoses Annual physical exam Z00.00 Obesity (BMI 30-39.9) E66.9 Hypercholesterolemia E78.00 Mild intermittent asthma without complication J45.20 Asthma severity: mild Asthma persistence: intermittent Asthma complication type: uncomplicated Impaired glucose tolerance R73.02 Obstructive sleep apnea G47.33 Gastroesophageal reflux disease, unspecified whether esophagitis present K21.9 Esophagitis presence: esophagitis presence not specified Right ankle swelling M25.471
== END 2024-05-01 14:50 | disposition home or self-care (01) ==
PROVIDERS: PCP Internal Medicine; Visit Provider Internal Medicine
DX: Z00.00 Encounter for general adult medical examination without abnormal findings (principal); E66.9 Obesity, unspecified; Z68.37 Body mass index [BMI] 37.0-37.9, adult; E78.00 Pure hypercholesterolemia, unspecified; J45.20 Mild intermittent asthma, uncomplicated; R73.02 Impaired glucose tolerance (oral); G47.33 Obstructive sleep apnea (adult) (pediatric); K21.9 Gastro-esophageal reflux disease without esophagitis; M25.471 Effusion, right ankle
CPT/HCPCS: 99396

== ENCOUNTER → 2024-06-28 13:14 | Outpatient (RCR) | payer OTHER, SELFPAY ==
[2021-01-09 08:57] VITALS: BP 137/73; PULSE 76; RESP 12; TEMP 36.4; O2SAT 98; BMI 36.6
--- NOTE | 2021-01-09 09:06 | P.CNHO_ITS ---
Subjective - Subjective Chief complaint: Anemia Consult date: 01/09/21 Primary Care Provider: Thanh Tuttle MD Medical Summary: Diagnosis: Normocytic anemia, leukocytosis HPI - Consult Narrative Reason for consult: Anemia Narrative: Leo Meza is a 40 year old male referred for evaluation of mild normocytic anemia. He has been anemic since 2019. He denies any complaints such as excess fatigue, exertional chest pain or shortness of breath. He reports no fever or chills. He reports no change in bowel habits, hematochezia or melena. No loss of appetite or weight loss. He denies any changes to his medications or recent infections. Review of Systems - Constitutional Reports no additional constitutional complaints - Cardiovascular Reports no additional cardiovascular complaints - Respiratory Reports no additional respiratory complaints - Gastrointestinal Reports no additional gastrointestinal complaints [facility] Medical History: Medical History (Last Updated 12/02/20 @ 13:31 by Thanh Tuttle MD) Asthma Hypercholesterolemia Impaired glucose tolerance Obesity (BMI 30-39.9) Obstructive sleep apnea Vitamin D deficiency Family History: Family History (Last Updated 01/09/21 @ 09:01 by Bri Hernandez) Mother Diabetes Asthma Father Diabetes High cholesterol Myocardial infarct Asthma Surgical History: Surgical History (Last Reviewed 12/02/20 @ 12:59 by Bertin Gibson) History of cholecystectomy Social History: Social History (Last Updated 01/09/21 @ 09:01 by Bri Hernandez) Alcohol History: Alcohol intake: former Alcohol History Details: Alcohol intake frequency: does not drink Tobacco History: Smoking Status: Never smoker Substance Use History: Use of substances other than those prescribed or required for medical reasons : No Smoking status: Never smoker Home Medications and Allergies Home Medications Medication Instructions Recorded Confirmed Type albuterol sulfate 90 mcg/actuation 2 puff INHALATION Q6H PRN 12/02/20 01/09/21 History aerosol inhaler cyanocobalamin (vitamin B-12) 1,000 mcg PO DAILY 12/02/20 01/09/21 History 1,000 mcg capsule epinephrine 0.3 mg/0.3 mL 0.3 mg IM Q10M PRN 12/02/20 01/09/21 History injection, auto-injector Allergies Allergy/AdvReac Type Severity Reaction Status Date / Time levofloxacin [From LEVAQUIN] Allergy Severe THROAT Verified 12/02/20 13:09 CLOSING Physical Exam Vital signs: Vital Signs Temp 97.6 F 01/09/21 08:57 Pulse 76 01/09/21 08:57 Resp 12 01/09/21 08:57 BP 137/73 01/09/21 08:57 Pulse Ox 98 01/09/21 08:57 Intake & Output 01/08/21 01/09/21 01/09/21 18:59 06:59 18:59 Other: Weight 119.2 kg Weight in Grams [id number] Weight 119.2 kg - Constitutional Present: no acute distress, obese - Routine HEENT Exam Head: Present: normal inspection Eye: Present: EOMI - Routine Neck Exam Present: supple. Absent: lymphadenopathy - Routine Respiratory Exam Present: CTAB - Routine Cardiovascular Exam Cardiovascular: Present: RRR, S1, S2 Hem/Onc Consult Result - Labs CBC & Chem 7: 01/09/21 09:40 Assessment and Plan (1) Anemia Status: Acute 1. This is a 40-year-old male with mild normocytic anemia. He has no evidence of hematinic deficiencies, chronic kidney or renal dysfunction. Is not on any medications that can affect his blood counts. He does not consume alcohol and is not a smoker. He has chronic leukocytosis as well and I am concern for myeloproliferative neoplasm which can also cause anemia. I have sent blood for bcr/ABL mutation testing. His iron tests are normal. Rest of hematological workup is pending. I thank you very much for this consultation. Follow-up in 1 month.
[2021-01-09 09:45] LABS: MANUAL DIFF FLAG NO
[2021-01-09 09:56] LABS: Basophils Absolute Auto 0.1 X10*3/uL (0.0-0.2); Basophils Percent Auto 0.4 % (0-2); Eosinophils Absolute Auto 0.3 X10*3/uL (0.0-0.4); Eosinophils Percent Auto 2.7 % (0-4); Hematocrit 41.3 % (42-52); Hemoglobin 13.1 g/dl (14.0-18.0); Imm Gran Abs Auto 0.05 X10*3/uL (0.00-0.03); Imm Gran Pct Auto 0.4 % (0.0-0.4); Immature Retic Fraction 21.1 % (2.3-13.4); Lymphocytes Absolute Auto 2.2 X10*3/uL (1.2-4.9); Lymphocytes Percent Auto 19.3 % (20-40); Mean Corpuscular HGB Conc 31.7 g/dl (31.0-36.0); Mean Corpuscular Hemoglobin 26.4 pg (27.0-33.0); Mean Corpuscular Volume 83.3 fL (80-98); Mean Platelet Volume 10.4 fL (9.4-12.4); Monocytes Absolute Auto 1.2 X10*3/uL (0.1-1.2); Monocytes Percent Auto 10.3 % (2-11); Neutrophils Absolute Auto 7.6 X10*3/uL (2.0-8.3); Neutrophils Percent Auto 66.9 % (45-73); Platelet Count 333 X10*3/uL (160-400); Red Blood Count 4.96 X10*6/uL (4.60-5.80); Red Cell Distribution Width 14.8 % (11.0-16.0); Retic HGB Equivalent 30.2 pg (30.0-35.0); Reticulocyte Percent 1.7 % (0.5-1.8); Reticulocytes Absolute 0.082 X10*6/uL (0.026-0.095); White Blood Count 11.4 X10*3/uL (4.8-10.8)
[2021-01-09 10:29] LABS: Iron 54 mcg/dL (45-160); Percent Iron Saturation 20 % (15-50); Total Iron Binding Capacity 275 mcg/dL (228-428); Unsaturated Iron Binding 221 ug/dL
--- NOTE | 2021-01-09 10:41 | MHC.HEMONCMA ---
Patient came in for a consult today, states that he is doing well. He understands why he was referred, states that he does not feel weak, tired, no headaches or dizziness. Patient had lab work and we will call him with a follow up when his blood work results come in.
[2021-01-09 10:43] LABS: Erythrocyte Sedimentation Rate 23 MM/HR (0-15)
[2021-01-09 10:49] LABS: Ferritin 162 ng/mL (20-250)
[2021-01-10 14:46] LABS: IgA 221 mg/dL (47-310); IgG 1057 mg/dL (600-1640); IgM 120 mg/dL (50-300)
[2021-01-12 11:22] LABS: Prot Elec - Albumin 3.9 g/dL (3.8-4.8); Prot Elec - Alpha1 0.3 g/dL (0.2-0.3); Prot Elec - Alpha2 0.9 g/dL (0.5-0.9); Prot Elec - Beta 1 0.4 g/dL (0.4-0.6); Prot Elec - Beta 2 0.4 g/dL (0.2-0.5); Prot Elec - Gamma 0.9 g/dL (0.8-1.7); Prot Elec - Total Protein 6.8 g/dL (6.1-8.1)
--- NOTE | 2021-02-09 08:37 | HO.HEMONCTE1 ---
Hem/Onc Clinic Telehealth - Telehealth Location of Provider rendering services: Office Location of Patient: home Patient Identification confirmed using: Name, : Yes Telehealth Method: Telephone Patient verbally consented to treatment: yes Patient verbally consented to billing insurance company: Yes Patient informed of any privacy concerns related to visit: Yes Medical Summary - Medical Summary Date of Service: 02/09/21 Chief complaint: Scheduled follow up Medical Summary: Diagnosis: Normocytic anemia, leukocytosis Interval History Interval history: This is scheduled follow up for pt, televisit consented based on covid 19 pandemic guidelines. He is doing well and has no complaints today. He is to discuss results of labs. He denies any changes to his medications or recent infections. Review of Systems - Constitutional Reports as per HPI, Reports no additional constitutional complaints Home Medications and Allergies Home Medications Medication Instructions Recorded Confirmed Type albuterol sulfate 90 mcg/actuation 2 puff INHALATION Q6H PRN 12/02/20 01/09/21 History aerosol inhaler cyanocobalamin (vitamin B-12) 1,000 mcg PO DAILY 12/02/20 01/09/21 History 1,000 mcg capsule epinephrine 0.3 mg/0.3 mL 0.3 mg IM Q10M PRN 12/02/20 01/09/21 History injection, auto-injector Allergies Allergy/AdvReac Type Severity Reaction Status Date / Time levofloxacin [From LEVAQUIN] Allergy Severe THROAT Verified 12/02/20 13:09 CLOSING Exam Vital signs: Vital Signs Temp 97.6 F 01/09/21 08:57 Pulse 76 01/09/21 08:57 Resp 12 01/09/21 08:57 BP 137/73 01/09/21 08:57 Pulse Ox 98 01/09/21 08:57 Weight 119.2 kg Body Mass Index 36.6 Narrative: Televist, not examined today. - Constitutional Present: no acute distress, obese - Routine HEENT Exam Head: Present: normal inspection - Routine Respiratory Exam Present: CTAB - Routine Cardiovascular Exam Cardiovascular: Present: RRR, S1, S2 Data - Labs CBC & Chem 7: 01/09/21 09:40 Labs: 01/09/21 09:40 BCR/ABL Trans 9,22 [place],Bl Routine Complete Blood Count Auto Diff Routine Erythrocyte Sedimentation Rate Routine Ferritin Routine IRON PROFILE Routine Immunofixation Pnl, Serum Routine Protein Electrophoresis, Serum Routine Reticulocyte Count Routine Laboratory Last Values WBC 11.4 X10*3/uL (4.8-10.8) H 01/09/21 09:40 RBC 4.96 X10*6/uL (4.60-5.80) 01/09/21 09:40 Hgb 13.1 g/dl (14.0-18.0) L 01/09/21 09:40 Hct 41.3 % (42-52) L 01/09/21 09:40 MCV 83.3 fL (80-98) 01/09/21 09:40 MCH 26.4 pg (27.0-33.0) L 01/09/21 09:40 MCHC 31.7 g/dl (31.0-36.0) 01/09/21 09:40 RDW 14.8 % (11.0-16.0) 01/09/21 09:40 Plt Count 333 X10*3/uL (160-400) 01/09/21 09:40 MPV 10.4 fL (9.4-12.4) 01/09/21 09:40 Immature Gran % (Auto) 0.4 % (0.0-0.4) 01/09/21 09:40 Neut % (Auto) 66.9 % (45-73) 01/09/21 09:40 Lymph % (Auto) 19.3 % (20-40) L 01/09/21 09:40 Mccracken % (Auto) 10.3 % (2-11) 01/09/21 09:40 Eos % (Auto) 2.7 % (0-4) 01/09/21 09:40 Baso % (Auto) 0.4 % (0-2) 01/09/21 09:40 Lymph # (Auto) 2.2 X10*3/uL (1.2-4.9) 01/09/21 09:40 Mccracken # (Auto) 1.2 X10*3/uL (0.1-1.2) 01/09/21 09:40 Eos # (Auto) 0.3 X10*3/uL (0.0-0.4) 01/09/21 09:40 Baso # (Auto) 0.1 X10*3/uL (0.0-0.2) 01/09/21 09:40 Abs Immat Gran (auto) 0.05 X10*3/uL (0.00-0.03) H 01/09/21 09:40 Absolute Neuts (auto) 7.6 X10*3/uL (2.0-8.3) 01/09/21 09:40 Absolute Nucleated RBC 0.000 X10*3/uL (0.0-0.012) 01/09/21 09:40 Nucleated RBC % (auto) 0.0 /100WBC (0.0-0.2) 01/09/21 09:40 ESR 23 MM/HR (0-15) H 01/09/21 09:40 Absolute Retic 0.082 X10*6/uL (0.026-0.095) 01/09/21 09:40 Percent Retic 1.7 % (0.5-1.8) 01/09/21 09:40 Immature Retic Fraction 21.1 % (2.3-13.4) H 01/09/21 09:40 Retic Hgb Equivalent 30.2 pg (30.0-35.0) 01/09/21 09:40 Iron 54 mcg/dL (45-160) 01/09/21 09:40 TIBC 275 mcg/dL (228-428) 01/09/21 09:40 % Saturation 20 % (15-50) 01/09/21 09:40 Unsat Iron Binding 221 ug/dL 01/09/21 09:40 Ferritin 162 ng/mL (20-250) 01/09/21 09:40 Total Protein (PEP) 6.8 g/dL (6.1-8.1) 01/09/21 09:40 Albumin (PEP) 3.9 g/dL (3.8-4.8) 01/09/21 09:40 Cccjh-9-Rsauusles 0.3 g/dL (0.2-0.3) 01/09/21 09:40 Vevey-6-Rxfvxpqms 0.9 g/dL (0.5-0.9) 01/09/21 09:40 Qvbr-5-Slywmszj 0.4 g/dL (0.4-0.6) 01/09/21 09:40 Wbim-4-Xetswfdu 0.4 g/dL (0.2-0.5) 01/09/21 09:40 Gamma Globulins 0.9 g/dL (0.8-1.7) 01/09/21 09:40 Abnorm Protein Band 1 TNP 01/09/21 09:40 Abnorm Protein Band 2 TNP 01/09/21 09:40 Abnorm Protein Band 3 TNP 01/09/21 09:40 PEP Interpretation SEE NOTE 01/09/21 09:40 IgG Total 1057 mg/dL (600-1640) 01/09/21 09:40 IgA Total 221 mg/dL (47-310) 01/09/21 09:40 IgM 120 mg/dL (50-300) 01/09/21 09:40 TREVIN Interpretation SEE NOTE 01/09/21 09:40 BCR/abl Interp & Reprt See Note 01/09/21 09:40 Progress Note: A/P (1) Anemia Status: Acute Assessment and plan: 1. This is a 40-year-old male with mild normocytic anemia. He has no evidence of hematinic deficiencies, chronic kidney or renal dysfunction. Is not on any medications that can affect his blood counts. He does not consume alcohol and is not a smoker. Because of chronic leucocytosis, BCR/ABL mutation test was performed and was negative. ESR was elevated at 23. ? Leukemoid reaction. He is asymptomatic. For now he will be monitored. I spent 12 min with the patient. Follow up in 6 months. - Time Spent With Patient Total time spent is greater than 50% in coordination of care (as documented) at patient's floor/unit and/or counseling patient: less than 15 minutes
--- NOTE | 2021-02-09 08:48 | MHC.HEMONCMA ---
Patient had a telehealth with the doctor today, he states he has no complaints. Clinical summary was reviewed and updated. Patient did not have labs, since it was a telehealth appt. He will come back in 5 months for an appt. Appt was made and mailed to the patient.
== END | disposition home or self-care (01) ==
LOC: HO.ONC 01-09 08:46
PROVIDERS: PCP Internal Medicine; Referring Provider Internal Medicine; Visit Provider Internal Medicine
DX: D64.9 Anemia, unspecified (principal); D72.829 Elevated white blood cell count, unspecified
CPT/HCPCS: 36415; 81206; 81207; 82728; 82784; 83540; 84155; 84165; 85025; 85045; 85652; 86334; 99204

== ENCOUNTER 2024-08-21 10:55 | Outpatient (AMB) | payer OTHER, SELFPAY ==
--- NOTE | 2024-08-21 11:15 | AM.OFFWIN_ITS ---
Intake Vital Signs 08/21/24 11:19 Height 5 ft 11 in Weight 268 lb BMI 37.4 BP 110/76 Blood Pressure Location Lt brachial Position Sitting Pulse 59 Pulse Source Pulse Oximeter Pulse Oximetry (%) 98 Oxygen Delivery Method Room Air Intake Visit Reasons: EP tingling on RT arm & RT leg Intake Note: Patient here for right hand tingling that radiates up to the shoulder. Patient Tobacco Use Status: Never used Tobacco Allergies levofloxacin [From LEVAQUIN] Allergy (Severe, Verified 08/21/24 11:19) THROAT CLOSING Do you need a note to return to daycare/school/sports/work: No HPI HPI Comments History of Present Illness Details Patient is a 44-year-old male complaining of 2 weeks of numbness and tingling that starts in his fingertips and goes up to his shoulder of his right arm. He tells me he has carpal tunnel at baseline but he does not use of wrist brace. 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 He tells me last night when he was trying to clean all the years in the bathroom, his shoulder started hurting so much she had to leave work. He has not tried taking any anti-inflammatories. He denies any trauma to his shoulder, he denies any trauma to his cervical spine but tells chin to his chest a few weeks ago he felt something weird on the right side of his neck. [facility] Medical History (Updated 08/21/24 @ 12:12 by Fide Pavon PA-C) Colon cancer screening Arthritis Heartburn Acute kidney injury Impaired glucose tolerance Obstructive sleep apnea Asthma Hypercholesterolemia Obesity (BMI 30-39.9) Vitamin D deficiency Surgical History H/O colonoscopy History of cholecystectomy Family History Mother Diabetes Asthma Father Diabetes High cholesterol Myocardial infarct Asthma Social History Housing: Apartment Alcohol intake: never Patient Tobacco Use Status: Never used Tobacco e-Cigarette/Vaping Use: Never Used Second Hand Smoke Exposure: No service: No Current occupational status: employed Cognitive needs: No Hearing needs: No Vision needs: Yes Review of Systems Const All systems reviewed & are unremarkable except as noted in HPI and below Physical Exam Vital Signs: Last Vital Signs Pulse 59 08/21/24 11:19 BP 110/76 08/21/24 11:19 Pulse Ox 98 08/21/24 11:19 Oxygen Delivery Method Room Air 08/21/24 11:19 BMI result Body Mass Index 37.4 Const General: cooperative, healthy appearing, comfortable, no acute distress and well developed Orientation/consciousness: patient oriented x3 Limitations: no limitations HEENT Head: Yes normal to inspection Neck Neck: Yes normal visual inspection and Yes supple Back/Spine/Pelvis Cervical Spine: cervical ROM normal, No cervical muscular tenderness, No cervical spasm and No Cervical spine tenderness Neuro General: patient oriented x3 Extrem Right upper extremity: shoulder/upper arm Details: normal to inspection, tenderness Location: of the A-C joint and abnormal ROM Details: pain with active ROM Details: in ABduction, in internal rotation and external rotation-; but not in ADduction and pain with passive ROM Details: with ABduction, with internal rotation and external rotation-; but not with ADduction; no swelling, no lacerations, no ecchymosis and no deformity Assessment & Plan Assessment & Plan (1) Cervicalgia: Code(s): M54.2 - Cervicalgia Plan: Recommended ALEVE ATC for 5-7 days and ice. Wrote work note for 2 days. Symptoms persist he should follow up with his PCP (2) Carpal tunnel syndrome, right: Code(s): G56.01 - Carpal tunnel syndrome, right upper limb Plan: Recommended he start using his wrist brace at night and at work as needed. Also recommended ALEVE ATC for 5-7 days and rest. Wrote work note for 2 days. If symptoms persist, he should follow up with his PCP Plan See above Coding Level of Care Code Est Pt Level 4 (65458) Diagnoses Cervicalgia M54.2 Carpal tunnel syndrome, right G56.01
[2024-08-21 11:19] VITALS: BP 110/76; PULSE 59; O2SAT 98; BMI 37.4
== END 2024-08-21 12:46 | disposition home or self-care (01) ==
PROVIDERS: PCP Internal Medicine; Visit Provider Physician Assistant
DX: M54.2 Cervicalgia (principal); G56.01 Carpal tunnel syndrome, right upper limb

== ENCOUNTER → 2024-08-21 10:55 | Outpatient (BNVA) | payer OTHER, SELFPAY | PROVIDERS: PCP Internal Medicine; Visit Provider Physician Assistant ==

== ENCOUNTER 2024-08-31 10:46 | Outpatient (AMB) | payer OTHER, SELFPAY ==
--- NOTE | 2024-08-31 10:48 | A.OFFPC_ITS ---
Vital Signs 08/31/24 10:49 Height 5 ft 11 in Weight 258 lb 4 oz BMI 36.0 BP 128/86 Blood Pressure Location Lt brachial Position Sitting Pulse 61 Pulse Source Pulse Oximeter Pulse Oximetry (%) 94 Oxygen Delivery Method Room Air Intake Visit Reasons: Pain management Intake Note: Patient is here to follow up on pain management. Complaint of left shoulder pain radiating down the arm. Acid Bath Mixer Required: No Casting Chipper: Not Required per policy Accompanied by: Self / Same As Patient Allergies levofloxacin [From LEVAQUIN] Allergy (Severe, Verified 08/31/24 10:49) THROAT CLOSING Tobacco use date assessed: 08/31/24 Dental Screening Dental Screen Date: 05/01/24 HPI Pain management HPI Details 44-year-old obese male with a history of hypercholesterolemia asthma impaired glucose tolerance obstructive sleep apnea GERD coming in for follow-up. April 2024 last seen patient's colonoscopy last done in March 10 years. Urgent Center August 21 having neck pain diagnosis of cervicalgia also carpal tunnel syndrome was advised to use a wrist brace. Noted weight loss 10 lb. Patient has complained of right hand numbness with pain on the right shoulder as well as on the right trapezius muscle. 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 Patient complains of numbness of the 1st 3 fingers mostly. [facility] Medical History (Updated 08/31/24 @ 11:19 by Thanh Tuttle MD) Colon cancer screening Arthritis Heartburn Acute kidney injury Impaired glucose tolerance Obstructive sleep apnea Asthma Hypercholesterolemia Obesity (BMI 30-39.9) Vitamin D deficiency Surgical History H/O colonoscopy History of cholecystectomy Family History Mother Diabetes Asthma Father Diabetes High cholesterol Myocardial infarct Asthma Social History Housing: Apartment Alcohol intake: never Patient Tobacco Use Status: Never used Tobacco e-Cigarette/Vaping Use: Never Used Second Hand Smoke Exposure: No service: No Current occupational status: employed Cognitive needs: No Hearing needs: No Vision needs: Yes Questionnaire Thrive Questionnaire Date Thrive assessed: 05/01/24 AUSTEN-7 AMB Questionnaire AUSTEN-7 Date AUSTEN - 7 assessed: 05/01/24 Source: Developed by Drs. Pedro Benitez, Jacinta Norris, Leon Fortune and colleagues, with an educational mendy from [employer]. Physical exam (Primary Care) Vital Signs: Last Vital Signs Pulse 61 08/31/24 10:49 BP 128/86 08/31/24 10:49 Pulse Ox 94 08/31/24 10:49 Oxygen Delivery Method Room Air 08/31/24 10:49 BMI result Body Mass Index 36.0 Tobacco/Smoking Status: Tobacco use Status Tobacco use date assessed 08/31/24 08/31/24 10:55 Patient Tobacco Use Status Never used Tobacco 08/31/24 10:55 e-Cigarette/Vaping Use Never Used 08/31/24 10:55 Thrive Assessment: Date of Thrive Assessment Date Thrive assessed 05/01/24 08/31/24 10:55 Const General: alert; No acute distress Eyes Conjunctivae: conjunctivae normal Resp Auscultation: clear to auscultation bilaterally Cardio Rate: regular rate Rhythm: regular rhythm GI Inspection: Yes normal to inspection Skin Other: Right radial pulse is normal, numbness on the 1st 3 fingers with pain on the shoulder muscle as well as the right trapezius muscle. Extrem General: Yes normal to inspection and No edema Office Procedures Flu Questionnaire Does the patient have a severe egg allergy?: No Does the patient have severe life threatening allergies?: No Does the patient have a fever or illness today?: No Has the patient ever had Guillain-Kayenta Syndrome?: No Has the patient ever had any past reaction to a flu shot?: No Immunizations Fluarix Triv [id number] (PF) 45 mcg (15 mcg x 3)/0.5 mL IM syringe Performing Provider: Thanh Tuttle MD [facility] Administered by: Jael Saenz RN on 08/31/24 11:01 Dose Route Admin Location Dispensed Lot Number Expiration Date [facility] Project Landscape Architect 0.5 mL IM Left Deltoid 0.5 mL [id number] 04/29/25 95053-990-84 [employer]O VIS Given Date VIS Provided VIS Publication Date 08/31/24 Single Vaccine 21 Eligibility Eligibility Date Funding Source Not [facility] Eligible 08/31/24 Private Coding Level of Care Code Est Pt Level 4 (68602) Diagnoses Obstructive sleep apnea G47.33 Obesity (BMI 30-39.9) E66.9 Hypercholesterolemia E78.00 Mild intermittent asthma without complication J45.20 Asthma severity: mild Asthma persistence: intermittent Asthma complication type: uncomplicated Impaired glucose tolerance R73.02 Carpal tunnel syndrome, right G56.01 Acute pain of right shoulder M25.511 Chronicity: acute Strain of right trapezius muscle, subsequent encounter S46.356Q Encounter type: subsequent encounter Assessment & Plan Assessment & Plan (1) Obstructive sleep apnea: Comment: And this is going to be along visit because we going to do a Humira--uses cpap Code(s): G47.33 - Obstructive sleep apnea (adult) (pediatric) Category: Medical Plan: Continue to use the CPAP more than 4 hours a night and benefits from this. (2) Obesity (BMI 30-39.9): Code(s): E66.9 - Obesity, unspecified Category: Medical Plan: Continue with diet and exercise (3) Hypercholesterolemia: Code(s): E78.00 - Pure hypercholesterolemia, unspecified Category: Medical Plan: Avoid fried foods, chicken skin, eggs, butter margarine, pastries and meat. Be it pork or beef they have a lot of cholesterol LDL goal of less than 130 and triglyceride of less than 150 (4) Asthma: Code(s): J45.909 - Unspecified asthma, uncomplicated Category: Medical Qualifiers: Asthma severity: mild Asthma persistence: intermittent Asthma complication type: uncomplicated Qualified Code(s): J45.20 - Mild intermittent asthma, uncomplicated Plan: On albuterol inhaler as needed (5) Impaired glucose tolerance: Code(s): R73.02 - Impaired glucose tolerance (oral) Category: Medical Plan: Decrease the amount of carbohydrate intake, pasta, bread, rice and potatoes are all sugar and that is aside from all the sweet stuff, remember that fruits are good but they are Sweet also. (6) Carpal tunnel syndrome, right: Code(s): G56.01 - Carpal tunnel syndrome, right upper limb Category: Medical Plan: will request for EMG and NCV (7) Right shoulder pain: Code(s): M25.511 - Pain in right shoulder Category: Medical Qualifiers: Chronicity: acute Qualified Code(s): M25.511 - Pain in right shoulder Plan: will get Physical therapy (8) Strain of right trapezius muscle: Code(s): S46.811A - Strain of other muscles, fascia and tendons at shoulder and upper arm level, right arm, initial encounter Category: Medical Qualifiers: Encounter type: subsequent encounter Qualified Code(s): S46.811D - Strain of other muscles, fascia and tendons at shoulder and upper arm level, right arm, subsequent encounter Plan: physical therapy advised , Orders: Orders PT Evaluation and Treatment Today M25.511 - Pain in right shoulder, S46.811A - Strain of other muscles, fascia and tendons at shoulder and upper arm level, right arm, initial encounter NE electromyogram (EMG) Today G56.01 - Carpal tunnel syndrome, right upper limb NE nerve conduction velocity Today G56.01 - Carpal tunnel syndrome, right upper limb Influenza [id number] Immunization Today Z23 - Encounter for immunization Medications: New cyclobenzaprine 10 mg PO BEDTIME PRN 30 tabs 0RF muscle spasm S46.811A - Strain of other muscles, fascia and tendons at shoulder and upper arm level, right arm, initial encounter
[2024-08-31 10:49] VITALS: BP 128/86; PULSE 61; O2SAT 94; BMI 36.0
== END 2024-08-31 11:21 | disposition home or self-care (01) ==
LOC: HO.HMCH 10:47
PROVIDERS: PCP Internal Medicine; Visit Provider Internal Medicine
DX: G47.33 Obstructive sleep apnea (adult) (pediatric) (principal); E66.9 Obesity, unspecified; E78.00 Pure hypercholesterolemia, unspecified; Z68.36 Body mass index [BMI] 36.0-36.9, adult; J45.20 Mild intermittent asthma, uncomplicated; R73.02 Impaired glucose tolerance (oral); G56.01 Carpal tunnel syndrome, right upper limb; M25.511 Pain in right shoulder; S46.811D Strain of other muscles, fascia and tendons at shoulder and upper arm level, right arm, subsequent encounter

== ENCOUNTER → 2024-08-31 10:46 | Outpatient (BNVA) | payer OTHER, SELFPAY | PROVIDERS: PCP Internal Medicine; Visit Provider Internal Medicine | DX: G47.33 Obstructive sleep apnea (adult) (pediatric) (principal); E66.9 Obesity, unspecified; E78.00 Pure hypercholesterolemia, unspecified; J45.20 Mild intermittent asthma, uncomplicated; R73.02 Impaired glucose tolerance (oral); Z23 Encounter for immunization; G56.01 Carpal tunnel syndrome, right upper limb; M25.511 Pain in right shoulder; S46.811D Strain of other muscles, fascia and tendons at shoulder and upper arm level, right arm, subsequent encounter; Z99.89 Dependence on other enabling machines and devices | CPT/HCPCS: 90471; 90656 ==

== ENCOUNTER 2024-10-09 05:46 | Outpatient (REF) | payer OTHER, SELFPAY ==
--- NOTE | 2024-10-09 05:47 | EMG_ITS ---
FINDINGS: Right median and ulnar motor and sensory studies were performed. Right radial, sensory, and median and lateral antecubital brachial sensory studies were performed and paraspinal muscles were tested with a needle. IMPRESSION: 1. Crbb-fa-yfhrwppd right median neuropathy across the carpal tunnel. 2. Aoif-ag-vdxubnak right ulnar neuropathy across the cubital tunnel. MD SEA Becerra/RENNY / [phone]
== END 2024-10-09 05:47 | disposition home or self-care (01) ==
LOC: HO.NEURO 05:46
PROVIDERS: PCP Internal Medicine; Visit Provider Internal Medicine
DX: G56.01 Carpal tunnel syndrome, right upper limb (principal)
CPT/HCPCS: 95886; 95910

== ENCOUNTER 2024-11-05 11:02 | Outpatient (AMB) | payer OTHER, SELFPAY ==
[2024-11-05 11:13] VITALS: BP 130/68; PULSE 78; O2SAT 98; BMI 36.4
--- NOTE | 2024-11-05 11:13 | MHC.PC.OV ---
Vital Signs 11/05/24 11:13 Height 5 ft 11 in Weight 261 lb BMI 36.4 BP 130/68 Blood Pressure Location Lt brachial Position Sitting Pulse 78 Pulse Source Pulse Oximeter Pulse Oximetry (%) 98 Oxygen Delivery Method Room Air Intake Visit Reasons: obesity, IGT Allergies levofloxacin [From LEVAQUIN] Allergy (Severe, Verified 11/05/24 11:14) THROAT CLOSING Tobacco use date assessed: 11/05/24 Dental Screening Dental Screen Date: 11/05/24 Did you have a dental visit in the last 12 months?: Yes Did you have a dental problem in the last 6 months where you did not have access to dental care?: No Was dental information given to patient?: Patient has dentist HPI obesity, IGT HPI Details The patient is a 44-year-old male presenting with symptoms of carpal tunnel syndrome and ulnar neuropathy. The patient reports that the issues were confirmed via nerve conduction testing, which revealed mild to moderate carpal tunnel syndrome affecting primarily three fingers and ulnar neuropathy. The patient has been experiencing numbness and tingling in the hand, particularly when holding certain positions. He notes that the symptoms disrupt his activities, sometimes leading to weakness and an inability to lift objects. Interventions have included wearing a wrist brace; however, symptoms remain persistent. The patient also has a history of ulnar neuropathy, with similar issues noted with regard to nerve impingement. He mentions experiencing tingling upon touching certain areas and identifies physical positions that exacerbate the symptoms. Additionally, the patient is known to have obstructive sleep apnea for which he is utilizing a CPAP machine that was procured in 2018. He experiences issues with moisture accumulation within the machine's tubing. The patient has occasional episodes of heartburn, approximately once a month, which appear to be linked to certain dietary choices. He reports improvement with the use of nhnl-pck-mecvhxh medications but mentions not receiving a recent prescription for famotidine. The patient's blood glucose levels have previously been slightly elevated, warranting further monitoring. He is compliant with CPAP therapy and is considering contacting the provider to evaluate whether a new machine is necessary. [facility] Medical History (Updated 10/11/24 @ 17:40 by Thanh Tuttle MD) Colon cancer screening Arthritis Heartburn Acute kidney injury Impaired glucose tolerance Obstructive sleep apnea Asthma Hypercholesterolemia Obesity (BMI 30-39.9) Vitamin D deficiency Surgical History H/O colonoscopy History of cholecystectomy Family History Mother Diabetes Asthma Father Diabetes High cholesterol Myocardial infarct Asthma Social History Housing: Apartment Alcohol intake: never Patient Tobacco Use Status: Never used Tobacco Tobacco use type: Cigarette e-Cigarette/Vaping Use: Never Used Second Hand Smoke Exposure: No service: No Current occupational status: employed Cognitive needs: No Hearing needs: No Vision needs: Yes Questionnaire PHQ-9 Over the last 2 weeks, how often have you been bothered by any of the following problems? 1. Little interest or pleasure in doing things: not at all 2. Feeling down, depressed, or hopeless: not at all 3. Trouble falling or staying asleep, or sleeping too much: not at all 4. Feeling tired or having little energy: not at all 5. Poor appetite or overeating: not at all 6. Feeling bad about yourself - or that you are a failure or have let yourself or your family down: not at all 7. Trouble concentrating on things, such as reading the newspaper or watching television: not at all 8. Moving or speaking so slowly that other people could have noticed. Or the opposite - being so fidgety or restless that you have been moving around a lot more than usual: not at all 9. Thoughts that you would be better off or of hurting yourself in some way: not at all Total score: 0 Depression Screening Interpretation: Negative Depression Screening Done: Yes Source: Developed by Drs. Pedro Benitez, Jacinta Norris, Leon Fortune and colleagues, with an educational mendy from [employer]. Thrive Questionnaire Date Thrive assessed: 11/05/24 I am a: Patient What is your living situation today?: I have a steady place to live Within the past 12 months, did the food you bought not last and you didn't have the money to get more?: Never true Within the past 12 months, did you worry whether your food would run out before you got money to buy more?: Never true Do you have trouble paying for medicines?: No Do you have trouble getting transportation to medical appointments?: No Do you have trouble paying your heating and electricity bill?: No Do you have trouble taking care of your child, family member or friend?: No Do you have trouble with day-to-day activities such as bathing, preparing meals, shopping, managing finances, etc.?: No Are you currently unemployed and looking for a job?: No Are you interested in more education?: No Currently or been in a relationship where the following occur: No concerns reported THRIVE Score: 0 AUDIT C Alcohol Use Questionnaire (AUDIT-C) 1. How often do you have a drink containing alcohol?: Never 2. How many drinks containing alcohol do you have on a typical day when you are drinking?: 1 or 2 3. How often do you have six or more drinks on one occasion?: Never Total Score: 0 AUSTEN-7 AMB Questionnaire AUSTEN-7 Date AUSTEN - 7 assessed: 11/05/24 Feeling nervous, anxious, or on edge: 0 = Not at all Not being able to stop or control worryin = Not at all Worrying too much about different things: 0 = Not at all Trouble relaxin = Not at all Being so restless that it is hard to sit still: 0 = Not at all Becoming easily annoyed or irritable: 0 = Not at all Feeling afraid as if something awful might happen: 0 = Not at all Total AUSTEN-7 score (0-4 normal; 5-9 mild; 10-14 moderate; 15-21 severe): 0 Source: Developed by Drs. Pedro Benitez, Jacinta Norris, Leon Fortune and colleagues, with an educational mendy from [employer]. AUSTEN-7 Assessment Billing AUSTEN-7 Assessment Tool: AUSTEN-7 Assessment 01773 Physical exam (Primary Care) Vital Signs: Last Vital Signs Pulse 78 11/05/24 11:13 BP 130/68 11/05/24 11:13 Pulse Ox 98 11/05/24 11:13 Oxygen Delivery Method Room Air 11/05/24 11:13 BMI result Body Mass Index 36.4 Tobacco/Smoking Status: Tobacco use Status Tobacco use date assessed 11/05/24 11/05/24 11:18 Patient Tobacco Use Status Never used Tobacco 11/05/24 11:18 Tobacco use type Cigarette 11/05/24 11:18 e-Cigarette/Vaping Use Never Used 11/05/24 11:18 PHQ-9: PHQ-9 Score PHQ-9: Total score 0 11/05/24 11:18 Depression Screening Interpretation: Negative Thrive Assessment: Date of Thrive Assessment Date Thrive assessed 11/05/24 11/05/24 11:18 Currently or been in a relationship where the following occur: No concerns reported Const General: alert; No acute distress Eyes Conjunctivae: conjunctivae normal Resp Auscultation: clear to auscultation bilaterally Cardio Rate: regular rate Rhythm: regular rhythm GI Inspection: Yes normal to inspection Extrem General: Yes normal to inspection and No edema Coding Level of Care Code Est Pt Level 4 (08240) Complex EM visit Add On G2211 Diagnoses Carpal tunnel syndrome, right G56.01 Ulnar neuropathy of right upper extremity G56.21 Gastroesophageal reflux disease, unspecified whether esophagitis present K21.9 Esophagitis presence: esophagitis presence not specified Anemia D64.9 Obstructive sleep apnea G47.33 Hypercholesterolemia E78.00 Impaired glucose tolerance R73.02 Additional Codes AUSTEN-7 Assessment Billing - AUSTEN-7 Assessment Tool: AUSTEN-7 Assessment 56336 ([id number]) Assessment & Plan Assessment & Plan (1) Carpal tunnel syndrome, right: Comment: Mild to moderate carpal tunnel syndrome EMG September 2024 Code(s): G56.01 - Carpal tunnel syndrome, right upper limb Category: Medical Plan: Patient does have a schedule with orthopedics for evaluation. (2) Ulnar neuropathy of right upper extremity: Code(s): G56.21 - Lesion of ulnar nerve, right upper limb Category: Medical Plan: Patient is not being bothered by this problem presently (3) GERD (gastroesophageal reflux disease): Code(s): K21.9 - Gastro-esophageal reflux disease without esophagitis Category: Medical Qualifiers: Esophagitis presence: esophagitis presence not specified Qualified Code(s): K21.9 - Gastro-esophageal reflux disease without esophagitis Plan: Avoid the foods that causes that usually spicy foods, tomato products, juices, coffee, soda and foods that your sensitive to. After eating do not lie down, allow 3-4 hours before in lie down. And keep the head of bed above 30 degrees to avoid the acid from going up. (4) Anemia: Code(s): D64.9 - Anemia, unspecified Category: Medical Plan: Advised to repeat blood work to follow-up (5) Obstructive sleep apnea: Comment: And this is going to be along visit because we going to do a Humira--uses cpap Code(s): G47.33 - Obstructive sleep apnea (adult) (pediatric) Category: Medical Plan: Continue to use the CPAP more than 4 hours a night and benefits from this. Patient discussed about changing the machine but advised to call the company and if needed we will do another sleep study. (6) Hypercholesterolemia: Code(s): E78.00 - Pure hypercholesterolemia, unspecified Category: Medical Plan: Avoid fried foods, chicken skin, eggs, butter margarine, pastries and meat. Be it pork or beef they have a lot of cholesterol (7) Impaired glucose tolerance: Code(s): R73.02 - Impaired glucose tolerance (oral) Category: Medical Plan: Advised blood work. Decrease the amount of carbohydrate intake, pasta, bread, rice and potatoes are all sugar and that is aside from all the sweet stuff, remember that fruits are good but they are Sweet also. Plan - Recommend continuation of wrist brace use for carpal tunnel syndrome and consider orthopedic consultation if symptoms persist or worsen. - Schedule further diagnostic testing or orthopedic evaluation to address ulnar neuropathy and explore surgical options if needed. - Advise regular CPAP use and contact equipment supplier to address equipment issues due to age. - Educate on lifestyle modifications to manage heartburn, suggest continuing xhwv-rix-lsuxjfx treatment for symptomatic relief, and re-evaluate the need for prescription famotidine if symptoms worsen. - Continue monitoring blood glucose levels with follow-up lab work to assess glycemic control. - Ensure adherence to preventative and health maintenance measures, including vaccination status and general wellness checks. Orders: Orders IRON PROFILE Today D64.9 - Anemia, unspecified Reticulocyte Count Today D64.9 - Anemia, unspecified Ferritin Today D64.9 - Anemia, unspecified Hemoglobin A1c Today R73.02 - Impaired glucose tolerance (oral) Medications: Refilled famotidine (Pepcid) 20 mg PO BEDTIME 90 tabs 0RF K21.9 - Gastro-esophageal reflux disease without esophagitis
== END 2024-11-05 11:37 | disposition home or self-care (01) ==
PROVIDERS: PCP Internal Medicine; Visit Provider Internal Medicine
DX: G56.01 Carpal tunnel syndrome, right upper limb (principal); G56.21 Lesion of ulnar nerve, right upper limb; K21.9 Gastro-esophageal reflux disease without esophagitis; D64.9 Anemia, unspecified; G47.33 Obstructive sleep apnea (adult) (pediatric); E78.00 Pure hypercholesterolemia, unspecified; R73.02 Impaired glucose tolerance (oral)

== ENCOUNTER → 2024-11-05 11:02 | Outpatient (BNVA) | payer OTHER, SELFPAY | PROVIDERS: PCP Internal Medicine; Visit Provider Internal Medicine | DX: G56.03 Carpal tunnel syndrome, bilateral upper limbs (principal); G56.21 Lesion of ulnar nerve, right upper limb; K21.9 Gastro-esophageal reflux disease without esophagitis; D64.9 Anemia, unspecified; G47.33 Obstructive sleep apnea (adult) (pediatric); E78.00 Pure hypercholesterolemia, unspecified; R73.02 Impaired glucose tolerance (oral); Z99.89 Dependence on other enabling machines and devices | CPT/HCPCS: 96127; 99212 ==

== ENCOUNTER 2024-11-09 14:56 | Outpatient (AMB) | payer OTHER, SELFPAY ==
[2024-11-09 15:05] VITALS: BMI 36.4
--- NOTE | 2024-11-09 15:05 | MHC.OFFVIS ---
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 States he is having numbness and tingling that occurs daily and symptoms come and go. This started about 2 months ago and has worse. EMG done. 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 States he is having numbness and tingling that occurs daily and symptoms come and go. This started about 2 months ago and has worse. EMG done. [facility] Medical History (Updated 10/11/24 @ 17:40 by Thanh Tuttle MD) Colon cancer screening Arthritis Heartburn Acute kidney injury Impaired glucose tolerance Obstructive sleep apnea Asthma Hypercholesterolemia Obesity (BMI 30-39.9) Vitamin D deficiency Surgical History H/O colonoscopy History of cholecystectomy Family History Mother Diabetes Asthma Father Diabetes High cholesterol Myocardial infarct Asthma Social History (Updated 11/09/24 @ 15:12 by Tracy Musa [facility]) Housing: Apartment Alcohol intake: never Patient Tobacco Use Status: Never used Tobacco Tobacco use type: Cigarette e-Cigarette/Vaping Use: Never Used Second Hand Smoke Exposure: No service: No Current occupational status: employed 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 Good APB muscle firing and good finger cross. Vascular: Capillary refill brisk. ROM: Patient can make a fist and extend all their digits. Skin: No lacerations or abrasions noted. General: No ecchymosis. No erythema or evidence of infection. Results Reviewed Results Reviewed: IMPRESSION: 1. Celi-ph-tkzaboow right median neuropathy across the carpal tunnel. 2. Irdl-fb-pfgnhlvd right ulnar neuropathy across the cubital tunnel. MD SEA Becerra/RENNY Assessment & Plan Assessment & Plan (1) Ulnar neuropathy of right upper extremity: Code(s): G56.21 - Lesion of ulnar nerve, right upper limb Category: Medical (2) Carpal tunnel syndrome, right: Comment: Mild to moderate carpal tunnel syndrome EMG September 2024 Code(s): G56.01 - Carpal tunnel syndrome, right upper limb Category: Medical Plan 1. Right cubital tunnel syndrome 2. Right carpal tunnel syndrome Symptoms intermittent, daily, worse at night I educated the patient about the condition. I discussed both operative and nonoperative treatment options. The patient would like to proceed with surgery. The risks and benefits of operative treatment were discussed with the patient and the patient wishes to proceed with surgery. These risks include, but are not limited to, risk of damage to blood vessels, nerves, tendons, infection, recurrence, incomplete relief of preoperative symptoms, persistent pain, possible need for further surgery, and the risks associated with regional blocks and/or anesthesia. Plan is to take the patient to the operating room at some point in the next few weeks for the following procedures: 1. Right cubital tunnel release under general 2. Right carpal tunnel release under general All of the preoperative paperwork including the consent was discussed today. All of the patient's questions were answered in the clinic today. The patient understands that they will be in contact with our surgical territory manager to discuss scheduling their procedure. Patient denies diabetes, blood thinners, asthma, heart issues, lung issues, kidney issues, or current smoking. Coding Level of Care Code New Pt Level 4 (33326) Diagnoses Ulnar neuropathy of right upper extremity G56.21 Carpal tunnel syndrome, right G56.01
== END 2024-11-09 15:21 | disposition home or self-care (01) ==
PROVIDERS: PCP Internal Medicine
DX: G56.21 Lesion of ulnar nerve, right upper limb (principal); G56.01 Carpal tunnel syndrome, right upper limb
CPT/HCPCS: 99204

== ENCOUNTER 2024-12-15 08:17 | Outpatient (REF) | payer OTHER, SELFPAY ==
--- OUTSIDE RECORDS SUMMARY | 2024-12-15 08:19 | XMS_ITS | Clinical Summary ---
Author Organization [facility] Address [address] [place] [address] Phone Care Team Providers Care Jig And Fixture Maker Name Role Phone Thanh Tuttle MD Primary Care Provider [phone] Allergies Active Allergy Reactions Criticality Noted Date Comments Levofloxacin Other (see comments) 04/08/2021 Medications albuterol HFA (ProAir HFA) 108 (90 Base) MCG/ACT inhaler 2 puffs by Other route 4 (four) times a day Active Active Problems Problem Noted Date Diagnosed Date Acute nontraumatic kidney injury 04/08/2021 Chronic kidney disease stage 3 04/08/2021 Disorder of kidney and/or ureter 04/08/2021 Family History Relation Status Comments Father Alive Mother Alive Social History Tobacco Use Types Packs/Day Years Used Date Smoking Tobacco: Never Smokeless Tobacco: Never Alcohol Use Standard Drinks/Week Comments No 0 (1 standard drink = 0.6 oz pur e alcohol) Sex and Gender Information Value Date Recorded Sex Assigned at Not on file Legal Sex Male 4:56 PM EST Gender Identity Not on file Sexual Orientation Not on file Last Filed Vital Signs Vital Sign Reading Time Taken Comments Blood Pressure 120/80 04/08/2021 3:46 PM EDT Pulse 81 04/08/2021 3:46 PM EDT Temperature - - Respiratory Rate - - Oxygen Saturation 95% 04/08/2021 3:46 PM EDT Inhaled Oxygen Concentration - - Weight 118 kg (260 lb 9.6 oz) 04/08/2021 3:46 PM EDT Height - - Body Mass Index - - Plan of Treatment Health Maintenance Due Date Last Done Comments Pneumococcal Vaccine: Pediat rics (0 to 5 Years) and At-Risk Patients (6 to 64 Years) (1 of 2 - PCV) 1984 Hepatitis B Vaccine (1 of 3 - 19+ 3-dose series) 07/12 Influenza Vaccine (#1) 2024 Insurance [facility] MEDICAID MEDICAID Care Teams Jig And Fixture Maker Relationship Specialty Start Date End Date Thanh Tuttle MD [facility] [place] [address] [place], [place] PCP - General 11/10/20
[2024-12-15 08:38] LABS: MANUAL DIFF FLAG NO
[2024-12-15 09:19] LABS: Basophils Percent Auto 0.4 % (0-2); Eosinophils Absolute Auto 0.2 X10*3/uL (0.0-0.4); Eosinophils Percent Auto 2.3 % (0-4); Hematocrit 43.3 % (42.0-52.0); Hemoglobin 13.8 g/dl (14.0-18.0); Imm Gran Abs Auto 0.03 X10*3/uL (0.00-0.03); Imm Gran Pct Auto 0.3 % (0.0-0.4); Immature Retic Fraction 14.7 % (2.3-13.4); Lymphocytes Absolute Auto 2.5 X10*3/uL (1.2-4.9); Lymphocytes Percent Auto 25.3 % (20-40); Mean Corpuscular HGB Conc 31.9 g/dl (31.0-36.0); Mean Corpuscular Hemoglobin 27.2 pg (27.0-33.0); Mean Corpuscular Volume 85.2 fL (80.0-98.0); Mean Platelet Volume 10.9 fL (9.4-12.4); Monocytes Percent Auto 10.1 % (2-11); Neutrophils Absolute Auto 6.1 x10*3/uL (2.0-8.3); Neutrophils Percent Auto 61.6 % (45-73); Platelet Count 299 X10*3/uL (160-400); Red Blood Count 5.08 X10*6/uL (4.60-5.80); Red Cell Distribution Width 14.6 % (11.0-16.0); Retic HGB Equivalent 30.5 pg (30.0-35.0); Reticulocyte Percent 1.6 % (0.5-1.8); Reticulocytes Absolute 0.079 X10*6/uL (0.026-0.095); White Blood Count 9.8 X10*3/uL (4.8-10.8)
[2024-12-15 09:29] LABS: Estimated Average Glucose 120 mg/dL; Hemoglobin A1C 141.7713 umol/L; Hemoglobin A1c % 5.8 % (<6.0); Total Hemoglobin (HGBA1C) 3531.1135 umol/L
[2024-12-15 09:55] LABS: Alanine Aminotransferase 41 U/L (0-40); Albumin Level 4.3 g/dL (3.5-5.0); Alkaline Phosphatase 92 U/L (39-117); Anion Gap 11 (12-20); Aspartate Amino Transferase 30 U/L (5-37); Bilirubin Total 0.4 mg/dL (0.0-1.0); Blood Urea Nitrogen 15 mg/dL (9-16); Calcium 9.8 mg/dL (8.4-10.2); Carbon Dioxide 26 mmol/L (22-29); Chloride 110 mmol/L (96-108); Cholesterol 187 mg/dL (<200); Estimated Glomerular Filt Rate > 60; Glucose Random 97 mg/dL (60-115); HDL Cholesterol 40 mg/dL (>40); Iron 81 mcg/dL (45-160); LDL Cholesterol Calculated 108 mg/dL (<100); Percent Iron Saturation 36 % (15-50); Potassium 4.9 mmol/L (3.3-5.1); Sodium 142 mmol/L (135-145); Total Iron Binding Capacity 222 mcg/dL (228-428); Total Protein 7.7 g/dL (6.5-8.0); Triglycerides 198 mg/dL (<150); Unsaturated Iron Binding 141 ug/dL
[2024-12-15 10:16] LABS: Ferritin 220 ng/mL (20-250); Free T4 (Free Thyroxine) 0.89 ng/dL (0.71-1.85); Thyroid Stimulating Hormone 1.42 uIU/mL (0.32-4.0)
[2024-12-15 10:20] LABS: Folate 11.2 ng/mL (> or = 4.0); Vitamin B12 433 pg/mL (200-900)
== END 2024-12-15 08:18 | disposition home or self-care (01) ==
LOC: HO.LAB 08:17
PROVIDERS: PCP Internal Medicine; Visit Provider Internal Medicine
DX: E78.00 Pure hypercholesterolemia, unspecified (principal); R73.02 Impaired glucose tolerance (oral); D64.9 Anemia, unspecified
CPT/HCPCS: 36415; 80053; 80061; 82607; 82728; 82746; 83036; 83540; 84439; 84443; 85025; 85045

== ENCOUNTER → 2024-12-20 14:43 | Outpatient (AMB) | payer OTHER, SELFPAY ==
[2024-12-20 14:44] VITALS: BP 126/80; PULSE 61; O2SAT 94; BMI 36.3
--- NOTE | 2024-12-20 14:44 | MHC.PC.OV ---
Vital Signs 12/20/24 14:44 Height 5 ft 11 in Weight 260 lb BMI 36.3 BP 126/80 Blood Pressure Location Lt brachial Position Sitting Pulse 61 Pulse Source Pulse Oximeter Pulse Oximetry (%) 94 Oxygen Delivery Method Room Air Intake Visit Reasons: R hand numbness Medical Reception Specialist Required: No Accompanied by: Self / Same As Patient Allergies levofloxacin [From LEVAQUIN] Allergy (Severe, Verified 12/20/24 14:44) THROAT CLOSING Tobacco use date assessed: 12/20/24 Dental Screening Dental Screen Date: 12/20/24 Did you have a dental visit in the last 12 months?: Yes Did you have a dental problem in the last 6 months where you did not have access to dental care?: No Was dental information given to patient?: Patient has dentist HPI R hand numbness HPI Details Patient has right carpal tunnel syndromeThe patient is a 44-year-old male presenting for follow-up of chronic conditions including obesity, asthma, hypercholesterolemia, impaired glucose tolerance, obstructive sleep apnea, gastroesophageal reflux disease (GERD), right carpal tunnel syndrome, and right ulnar neuropathy. The patient was last seen in November 05, 2024, and has since been referred to orthopedics for a surgical evaluation and treatment of his right carpal tunnel syndrome, scheduled for December 31, 2024. Laboratory tests indicate chronic anemia, with the patient being mildly anemic for over five years. His hemoglobin A1c is 5.8%, indicating impaired glucose tolerance. The fasting blood sugar level is 97 mg/dL, which is elevated but within the prediabetic range. Liver function tests reveal elevated levels, prompting further workup including a hepatitis profile and an abdominal ultrasound. The patient's triglycerides are elevated at 198 mg/dL, while total cholesterol is within acceptable limits at 108 mg/dL. Thyroid function, folic acid, and B12 levels are normal. The patient's use of CPAP for obstructive sleep apnea appears beneficial, though he occasionally forgets to use it. The patient reports improvement in GERD symptoms with as-needed use of Pepcid, experiencing heartburn no more than once or twice every two months, depending on dietary intake. He denies leg swelling but acknowledges occasional swelling and pain in his neck due to past trauma in 2021; x-ray results then showed no fracture, but arthritis with bony spurs was noted. [facility] Medical History (Updated 12/16/24 @ 11:23 by Thanh Tuttle MD) Colon cancer screening Arthritis Heartburn Acute kidney injury Impaired glucose tolerance Obstructive sleep apnea Asthma Hypercholesterolemia Obesity (BMI 30-39.9) Vitamin D deficiency Surgical History H/O colonoscopy History of cholecystectomy Family History Mother Diabetes Asthma Father Diabetes High cholesterol Myocardial infarct Asthma Social History Housing: Apartment Alcohol intake: never Patient Tobacco Use Status: Never used Tobacco Tobacco use type: Cigarette e-Cigarette/Vaping Use: Never Used Second Hand Smoke Exposure: No service: No Current occupational status: employed 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 1. Little interest or pleasure in doing things: not at all 2. Feeling down, depressed, or hopeless: not at all 3. Trouble falling or staying asleep, or sleeping too much: not at all 4. Feeling tired or having little energy: not at all 5. Poor appetite or overeating: not at all 6. Feeling bad about yourself - or that you are a failure or have let yourself or your family down: not at all 7. Trouble concentrating on things, such as reading the newspaper or watching television: not at all 8. Moving or speaking so slowly that other people could have noticed. Or the opposite - being so fidgety or restless that you have been moving around a lot more than usual: not at all 9. Thoughts that you would be better off or of hurting yourself in some way: not at all Total score: 0 Depression Screening Interpretation: Negative Depression Screening Done: Yes Source: Developed by Drs. Pedro Benitez, Jacinta Norris, Leon Fortune and colleagues, with an educational mendy from [employer]. Thrive Questionnaire Date Thrive assessed: 12/20/24 I am a: Patient What is your living situation today?: I have a steady place to live Within the past 12 months, did the food you bought not last and you didn't have the money to get more?: Never true Within the past 12 months, did you worry whether your food would run out before you got money to buy more?: Never true Do you have trouble paying for medicines?: No Do you have trouble getting transportation to medical appointments?: No Do you have trouble paying your heating and electricity bill?: No Do you have trouble taking care of your child, family member or friend?: No Do you have trouble with day-to-day activities such as bathing, preparing meals, shopping, managing finances, etc.?: No Are you currently unemployed and looking for a job?: No Are you interested in more education?: No Please select the resources that you would like help with: None Currently or been in a relationship where the following occur: No concerns reported THRIVE Score: 0 AUDIT C Alcohol Use Questionnaire (AUDIT-C) 1. How often do you have a drink containing alcohol?: Never 2. How many drinks containing alcohol do you have on a typical day when you are drinking?: 1 or 2 3. How often do you have six or more drinks on one occasion?: Never Total Score: 0 AUSTEN-7 AMB Questionnaire AUSTEN-7 Date AUSTEN - 7 assessed: 12/20/24 Feeling nervous, anxious, or on edge: 0 = Not at all Not being able to stop or control worryin = Not at all Worrying too much about different things: 0 = Not at all Trouble relaxin = Not at all Being so restless that it is hard to sit still: 0 = Not at all Becoming easily annoyed or irritable: 0 = Not at all Feeling afraid as if something awful might happen: 0 = Not at all Total AUSTEN-7 score (0-4 normal; 5-9 mild; 10-14 moderate; 15-21 severe): 0 Source: Developed by Drs. Pedro Benitez, Jacinta Norris, Leon Fortune and colleagues, with an educational mendy from [employer]. AUSTEN-7 Assessment Billing AUSTEN-7 Assessment Tool: AUSTEN-7 Assessment 41433 Physical exam (Primary Care) Vital Signs: Last Vital Signs Pulse 61 12/20/24 14:44 BP 126/80 12/20/24 14:44 Pulse Ox 94 12/20/24 14:44 Oxygen Delivery Method Room Air 12/20/24 14:44 BMI result Body Mass Index 36.3 Tobacco/Smoking Status: Tobacco use Status Tobacco use date assessed 12/20/24 12/20/24 14:49 Patient Tobacco Use Status Never used Tobacco 12/20/24 14:49 Tobacco use type Cigarette 12/20/24 14:49 e-Cigarette/Vaping Use Never Used 12/20/24 14:49 PHQ-9: PHQ-9 Score PHQ-9: Total score 0 12/20/24 14:49 Depression Screening Interpretation: Negative Thrive Assessment: Date of Thrive Assessment Date Thrive assessed 12/20/24 12/20/24 14:49 Currently or been in a relationship where the following occur: No concerns reported Const General: alert; No acute distress Eyes Conjunctivae: conjunctivae normal Resp Auscultation: clear to auscultation bilaterally Cardio Rate: regular rate Rhythm: regular rhythm GI Inspection: Yes normal to inspection Extrem General: Yes normal to inspection and No edema Coding Level of Care Code Est Pt Level 4 (43558) Complex EM visit Add On G2211 Diagnoses Carpal tunnel syndrome, right G56.01 LFT elevation R79.89 Gastroesophageal reflux disease, unspecified whether esophagitis present K21.9 Esophagitis presence: esophagitis presence not specified Obstructive sleep apnea G47.33 Impaired glucose tolerance R73.02 Hypercholesterolemia E78.00 Obesity (BMI 30-39.9) E66.9 Additional Codes AUSTEN-7 Assessment Billing - AUSTEN-7 Assessment Tool: AUSTEN-7 Assessment 38633 ([id number]) Assessment & Plan Assessment & Plan (1) Carpal tunnel syndrome, right: Comment: Mild to moderate carpal tunnel syndrome EMG September 2024 Code(s): G56.01 - Carpal tunnel syndrome, right upper limb Category: Medical Plan: Patient has a surgical procedure on December 31 2024. (2) LFT elevation: Code(s): R79.89 - Other specified abnormal findings of blood chemistry Category: Medical Plan: Patient is advised to repeat blood work as well as do an ultrasound of the abdomen. (3) GERD (gastroesophageal reflux disease): Code(s): K21.9 - Gastro-esophageal reflux disease without esophagitis Category: Medical Qualifiers: Esophagitis presence: esophagitis presence not specified Qualified Code(s): K21.9 - Gastro-esophageal reflux disease without esophagitis Plan: Avoid the foods that causes that usually spicy foods, tomato products, juices, coffee, soda and foods that your sensitive to. After eating do not lie down, allow 3-4 hours before in lie down. And keep the head of bed above 30 degrees to avoid the acid from going up. (4) Obstructive sleep apnea: Comment: And this is going to be along visit because we going to do a Humira--uses cpap Code(s): G47.33 - Obstructive sleep apnea (adult) (pediatric) Category: Medical (5) Impaired glucose tolerance: Code(s): R73.02 - Impaired glucose tolerance (oral) Category: Medical Plan: Decrease the amount of carbohydrate intake, pasta, bread, rice and potatoes are all sugar and that is aside from all the sweet stuff, remember that fruits are good but they are Sweet also. (6) Hypercholesterolemia: Code(s): E78.00 - Pure hypercholesterolemia, unspecified Category: Medical Plan: Avoid fried foods, chicken skin, eggs, butter margarine, pastries and meat. Be it pork or beef they have a lot of cholesterol LDL goal of less than 130 and triglyceride of less than 150 (7) Obesity (BMI 30-39.9): Code(s): E66.9 - Obesity, unspecified Category: Medical Plan: Diet and exercise Plan 1. - Advise as-needed use of Pepcid for GERD, with precautions on dietary triggers: - Monitoring and follow-up scheduled in April for physical examination and further evaluation of chronic conditions. - Service Order Dispatcher Chief on influenza, COVID-19, and RSV prevention measures.
--- OUTSIDE RECORDS SUMMARY | 2024-12-20 15:50 | XMS_ITS | Clinical Summary ---
Author Organization [facility] Address [address] [place] [address] Phone Care Team Providers Care Lacemaker Name Role Phone Thanh Tuttle MD Primary Care Provider [phone] Allergies Active Allergy Reactions Criticality Noted Date [...] series) 07/12 Influenza Vaccine (#1) 2024 Insurance [facility] MEDICAID MEDICAID Care Teams Lacemaker Relationship Specialty Start Date End Date Thanh Tuttle MD [facility] [place] [address] [place], [place] PCP - General 11/10/20
--- OUTSIDE RECORDS SUMMARY | 2024-12-20 15:50 | XMS_ITS | Clinical Summary ---
Author Organization [facility] ity Address [address] [place] [address] Care Team Providers Care Police Judge Name Role Phone Unavailable Primary Care Provider Unavailabl e Social History Tobacco Use Types Packs/Day Years Used Date Smoking Tobacco: Never Assessed Sex and Gender Information Value Date Recorded Sex Assigned at Not on file Legal Sex Male 5:44 AM EST Gender Identity Not on file Sexual Orientation Not on file Plan of Treatment Health Maintenance Due Date Last Done Comments DTaP,Tdap,and Td Vaccines (1 - Tdap) 1997 Hepatitis B Vaccines (1 of 3 - 19+ 3-dose series) 1997 COVID-19 Vaccine (2023-2 5 season) 2024 Influenza Vaccine (#1) 2024 HIB Vaccines Aged Out No longer eligi ble based on patient's age to complete this topic HPV Vaccines Aged Out No longer eligi ble based on patient's age to complete this topic Hepatitis A Vaccines Aged Out No long er eligible based on patient's age to complete this topic IPV Vaccines Aged Out No longer eligi ble based on patient's age to complete this topic MMR Vaccines Aged Out No longer eligi ble based on patient's age to complete this topic Meningococcal ACWY Vaccine Aged Out N o longer eligible based on patient's age to complete this topic Meningococcal B Vacine Aged Out No lo nger eligible based on patient's age to complete this topic Pneumococcal Vaccine: Pediat rics (0 to 5 Years) and At-Risk Patients (6 to 64 Years) Aged Out No longer eligible b ased on patient's age to complete this topic RSV Immunization Patients Un frantz 20 months Aged Out No longer eligible b ased on patient's age to complete this topic Varicella Vaccines Aged Out No longer eligible based on patient's age to complete this topic
== END ==
PROVIDERS: PCP Internal Medicine; Visit Provider Internal Medicine
DX: G56.01 Carpal tunnel syndrome, right upper limb (principal); R79.89 Other specified abnormal findings of blood chemistry; Z68.36 Body mass index [BMI] 36.0-36.9, adult; E66.9 Obesity, unspecified; K21.9 Gastro-esophageal reflux disease without esophagitis; G47.33 Obstructive sleep apnea (adult) (pediatric); R73.02 Impaired glucose tolerance (oral); E78.00 Pure hypercholesterolemia, unspecified

== ENCOUNTER → 2024-12-20 14:43 | Outpatient (BNVA) | payer OTHER, SELFPAY | PROVIDERS: PCP Internal Medicine; Visit Provider Internal Medicine | DX: G56.01 Carpal tunnel syndrome, right upper limb (principal); R79.89 Other specified abnormal findings of blood chemistry; K21.9 Gastro-esophageal reflux disease without esophagitis; G47.33 Obstructive sleep apnea (adult) (pediatric); R73.02 Impaired glucose tolerance (oral); E78.00 Pure hypercholesterolemia, unspecified; E66.9 Obesity, unspecified; Z68.36 Body mass index [BMI] 36.0-36.9, adult | CPT/HCPCS: 96127 ==

== ENCOUNTER 2024-12-31 13:58 | Day surgery (SDC) | payer OTHER, SELFPAY ==
--- OUTSIDE RECORDS SUMMARY | 2024-12-24 17:06 | XMS_ITS | Clinical Summary ---
Author Organization [facility] ity Address [address] [place] [address] Care Team Providers Care Gut Puller Name Role Phone Unavailable Primary Care Provider [...]
--- OUTSIDE RECORDS SUMMARY | 2024-12-24 17:06 | XMS_ITS | Clinical Summary ---
Author Organization [facility] Address [address] [place] [address] Phone Care Team Providers Care Dish Cloth Inspector Name Role Phone Thanh Tuttle MD Primary Care Provider [phone] Allergies Active Allergy Reactions Criticality Noted Date [...] series) 07/12 Influenza Vaccine (#1) 2024 Insurance [facility] MEDICAID MEDICAID Care Teams Dish Cloth Inspector Relationship Specialty Start Date End Date Thanh Tuttle MD [facility] [place] [address] [place], [place] PCP - General 11/10/20
[2024-12-31 14:10] VITALS: BP 138/83; PULSE 65; RESP 16; TEMP 36.3; O2SAT 95; BMI 35.3
--- NOTE | 2024-12-31 16:02 | MHC.SHP ---
Pre-Procedural Eval Section A - 24 Hr Update-Section A only Date of Service: 12/31/24 The patient is an INPATIENT: No Changes since office visit: No Cold of Flu in the past 2 weeks, No New Medical Problems, No Changes in Medication and No Patient answered all questions The patient has been examined within 24 hours of the surgical procedure. The History & Physical has been completed within 30 days and I have reviewed it.: Yes Section B - Complete if H&P > 30 days Chief Complaint: Carpal tunnel syndrome, right upper limb Allergies: Allergies Allergy/AdvReac Type Severity Reaction Status Date / Time levofloxacin [From LEVAQUIN] Allergy Severe THROAT Verified 12/31/24 15:24 CLOSING Plan Diagnosis/Plan: Unchanged I have reviewed the history and physical and performed a pertinent physical examination on my patient. No changes have occurred unless specified. Time Spent With Patient Time: Total time managing care of this patient today ____ minutes.
--- NOTE | 2024-12-31 16:02 | W.PM.OPN ---
Operative Note Operative Note Date of Service: 12/31/24 Narrative: Preop diagnosis: 1. Right Carpal tunnel syndrome Postop diagnosis: same Procedure: 1. Right Carpal tunnel release Surgeon: Madhuri Su MD Education Program Associate: None Anesthesia: local block using 1% lidocaine with epinephrine Findings: Thickened transverse carpal ligament. EBL: Less than 5 mL Specimens: None Complications: None Disposition: Brought to recovery room in stable condition Plan: Follow-up for 10-14 days for wound check and suture removal Indications: The patient is 44 years old, with right carpal tunnel syndrome that has been unresponsive to nonoperative management. The risks and benefits of operative treatment including but not limited to risk of damage to blood vessels, nerves, tendons, infection, persistent pain, persistent symptoms, or possible need for additional surgery were discussed with the patient and the patient wishes to proceed with surgery. Procedure: Once consent was obtained a local block was performed using a combination of 1% lidocaine with epinephrine. The patient was then brought back to the operating suite and placed on the operative table in supine position. The right upper extremity was prepped and draped in a standard surgical fashion. Once assured that we had a good block, a 2.0 cm longitudinal incision was made centered over the carpal tunnel. The incision was made through the skin to the subcutaneous tissues using a #15 blade. Dissection was made down to the level of the transverse carpal ligament with care being taken to protect the palmar cutaneous nerve. Once the transverse carpal ligament was clearly visualized, a longitudinal incision was made in the transverse carpal ligament 1st using a #15 blade, then using tenotomy scissors under direct visualization. Care was taken to look for and protect the motor branch of the median nerve when seen in this area. Once satisfied with our carpal tunnel release the wound was copiously irrigated with normal saline and hemostasis was obtained with a brief period of local pressure. The skin edges were reapproximated with some 5.0 nylon suture material and a sterile dressing was applied. The patient appears to have tolerated the procedure well and with no complications. All digits were well vascularized at the conclusion of the case.
--- NOTE | 2024-12-31 16:04 | MHC.SHP ---
Pre-Procedural Eval Section A - 24 Hr Update-Section A only Date of Service: 12/31/24 The patient is an INPATIENT: No Changes since office visit: No Cold of Flu in the past 2 weeks, No New Medical Problems, No Changes in Medication and No Patient answered all questions The patient has been examined within 24 hours of the surgical procedure. The History & Physical has been completed within 30 days and I have reviewed it.: Yes Section B - Complete if H&P > 30 days Chief Complaint: Carpal tunnel syndrome, right upper limb Allergies: Allergies Allergy/AdvReac Type Severity Reaction Status Date / Time levofloxacin [From LEVAQUIN] Allergy Severe THROAT Verified 12/31/24 15:24 CLOSING Exam Exam Comment: The patient states that he is no longer having trouble with numbness and tingling in the ulnar nerve distribution. He is still having trouble with numbness and tingling in the median nerve distribution Plan Diagnosis/Plan: Change I have reviewed the history and physical and performed a pertinent physical examination on my patient. No changes have occurred unless specified. Assessment and plan: 1. Right carpal tunnel syndrome This is his chief complaint 2. Right cubital tunnel syndrome Now only minimally symptomatic I educated the patient about this condition we discussed operative and non operative treatment options. We are going to proceed with the right carpal tunnel release. We will not be proceeding with a cubital tunnel release at this time. The risks and benefits of operative treatment were discussed with the patient and the patient wishes to proceed with surgery. These risks include, but are not limited to risk of damage to blood vessels, nerves, tendons, infection, recurrence, incomplete relief of preoperative symptoms, persistent pain, possible need for further surgery and the risks associated with regional blocks and anesthesia. The plan is to take the patient to the operating room today for the following procedures: 1. Right carpal tunnel release 2. [ ] All of the preoperative paperwork including the consent was filled out today. All the patient's questions were answered. Time Spent With Patient Time: Total time managing care of this patient today ____ minutes.
[2024-12-31 16:44] VITALS: BP 134/68; PULSE 60; RESP 16; TEMP 36.6; O2SAT 96
== END 2024-12-31 16:49 | disposition home or self-care (01) ==
PROVIDERS: PCP Internal Medicine; Visit Provider Orthopaedic Surgery
PROC: (CPT 64721; principal; 2024-12-31 15:20)
DX: G56.01 Carpal tunnel syndrome, right upper limb (principal); R20.0 Anesthesia of skin; R20.2 Paresthesia of skin; R73.02 Impaired glucose tolerance (oral); R12 Heartburn; E55.9 Vitamin D deficiency, unspecified; G47.33 Obstructive sleep apnea (adult) (pediatric); Z88.1 Allergy status to other antibiotic agents; Z90.49 Acquired absence of other specified parts of digestive tract
CPT/HCPCS: 64721; J0171; J2003

== ENCOUNTER → 2024-12-31 13:58 | Outpatient (BNV) | payer OTHER, SELFPAY | PROVIDERS: PCP Internal Medicine; Visit Provider Orthopaedic Surgery | DX: G56.01 Carpal tunnel syndrome, right upper limb (principal) | CPT/HCPCS: 64721 ==

== ENCOUNTER 2025-01-09 09:25 | Outpatient (REF) | payer OTHER, SELFPAY ==
--- NOTE | ~2025-01-09 | US_ITS ---
EXAMINATION: US ABDOMEN COMPLETE CLINICAL INFORMATION: Abnormal blood chemistry.. COMPARISON: March 19, 2015. TECHNIQUE: Real-time imaging of the abdominal viscera using grayscale and color Doppler technique. FINDINGS: PANCREAS: No peripancreatic fluid collections. ABDOMINAL AORTA: The proximal, mid, and distal segments are normal in caliber. INFERIOR VENA CAVA: Visualized portions are normal. LIVER: Liver measures 18 cm. Increased echotexture. No nodular surface. No gross solid or cystic lesion detected by the charge histotechnologist. Main portal vein is patent with normal hepatopedal flow direction. No intrahepatic biliary ductal dilatation. GALLBLADDER: Absent/cholecystectomy. COMMON BILE DUCT: 5 mm.. RIGHT KIDNEY: 13 cm. Normal echotexture. Normal renal cortical thickness. No hydronephrosis. No gross solid or cystic lesion. Normal flow on color Doppler interrogation of the renal hilum. LEFT KIDNEY: 12 cm. Normal echotexture. Normal renal cortical thickness. No hydronephrosis. No gross solid or cystic lesion. Normal flow on color Doppler interrogation of the renal hilum. SPLEEN: 11 cm. No focal lesion.. FREE FLUID: None. US/US abdomen complete IMPRESSION: Hepatomegaly and steatosis. No hydronephrosis. No ascites. Status post cholecystectomy. Electronically signed by: Charles Mckenna MD 01/09/2025 10:00 AM EDT
--- OUTSIDE RECORDS SUMMARY | 2025-01-09 10:14 | XMS_ITS | Clinical Summary ---
Author Organization [facility] ity Address [address] [place] [address] Care Team Providers Care Subscription Agent Name Role Phone Unavailable Primary Care Provider [...]
--- OUTSIDE RECORDS SUMMARY | 2025-01-09 10:14 | XMS_ITS | Clinical Summary ---
Author Organization [facility] Address [address] [place] [address] Phone Care Team Providers Care Tractor Trailer Mechanic Name Role Phone Thanh Tuttle MD Primary Care Provider [phone] Allergies Active Allergy Reactions Criticality Noted Date [...] series) 07/12 Influenza Vaccine (#1) 2024 Insurance [facility] MEDICAID MEDICAID Care Teams Tractor Trailer Mechanic Relationship Specialty Start Date End Date Thanh Tuttle MD [facility] [place] [address] [place], [place] PCP - General 11/10/20
== END 2025-01-09 09:26 | disposition home or self-care (01) ==
LOC: HO.US 09:25
PROVIDERS: PCP Internal Medicine; Visit Provider Internal Medicine
DX: R79.89 Other specified abnormal findings of blood chemistry (principal)
CPT/HCPCS: 76700

== ENCOUNTER → 2025-01-09 09:27 | Outpatient (BNV) | payer OTHER, SELFPAY | PROVIDERS: PCP Internal Medicine; Visit Provider Radiology Diagnostic Radiology | DX: K76.0 Fatty (change of) liver, not elsewhere classified (principal); R16.0 Hepatomegaly, not elsewhere classified | CPT/HCPCS: 76700 ==

== ENCOUNTER 2025-01-12 07:37 | Outpatient (REF) | payer OTHER, SELFPAY ==
--- OUTSIDE RECORDS SUMMARY | 2025-01-12 07:39 | XMS_ITS | Clinical Summary ---
Author Organization [facility] ity Address [address] [place] [address] Care Team Providers Care Small Package And Bundle Sorter Clerk Name Role Phone Unavailable Primary Care Provider [...]
--- OUTSIDE RECORDS SUMMARY | 2025-01-12 07:39 | XMS_ITS | Clinical Summary ---
Author Organization [facility] Address [address] [place] [address] Phone Care Team Providers Care Hydrodynamics Professor Name Role Phone Thanh Tuttle MD Primary Care Provider [phone] Allergies Active Allergy Reactions Criticality Noted Date [...] series) 07/12 Influenza Vaccine (#1) 2024 Insurance [facility] MEDICAID MEDICAID Care Teams Hydrodynamics Professor Relationship Specialty Start Date End Date Thanh Tuttle MD [facility] [place] [address] [place], [place] PCP - General 11/10/20
[2025-01-12 08:39] LABS: Estimated Average Glucose 120 mg/dL; Hemoglobin A1c % 5.8 % (<6.0); Total Hemoglobin (HGBA1C) 3549.5579 umol/L
[2025-01-12 09:08] LABS: Alanine Aminotransferase 34 U/L (0-40); Albumin Level 4.1 g/dL (3.5-5.0); Alkaline Phosphatase 96 U/L (39-117); Aspartate Amino Transferase 22 U/L (5-37); Bilirubin Direct 0.1 mg/dL (0.0-0.5); Bilirubin Total 0.3 mg/dL (0.0-1.0); Total Protein 7.5 g/dL (6.5-8.0)
[2025-01-12 09:33] LABS: HBS Num1 0.13 mIU/mL (0-7.99); HBc Num1 0.04 S/CO (0.00-0.79); HBsAGNum1 0.26 S/CO (0.00-0.99); Hepatitis B Core Antibody Nonreactive (Nonreactive); Hepatitis B Surface Antigen Negative (Negative); ~HepC Num1 0.08 S/CO (0.00-0.79); ~Hepatitis B Surface Antibody NONREACTIVE (Nonreactive); ~Hepatitis C Antibody Nonreactive (Nonreactive)
== END 2025-01-12 07:38 | disposition home or self-care (01) ==
LOC: HO.LAB 07:37
PROVIDERS: PCP Internal Medicine; Visit Provider Internal Medicine
DX: R79.89 Other specified abnormal findings of blood chemistry (principal); R73.02 Impaired glucose tolerance (oral)
CPT/HCPCS: 36415; 80076; 83036; 86704; 86706; 86803; 87340

== ENCOUNTER 2025-01-15 13:52 | Outpatient (AMB) | payer OTHER, SELFPAY ==
--- NOTE | 2025-01-15 13:55 | A.OFFVIS_ITS ---
Intake Visit Reasons: PO RT CTR 12/31/24 AR Intake Note: Leo 44 year old right hand dominant male who presents today post operatively s/p right carpal tunnel release DOS: 12/31/24 w/ Dr Madhuri Su. sutures removed and steri strips applied at today's visit. He states that his symptoms has improved after the surgery. Patient mentions that his pain has gotten a little better. Allergies levofloxacin [From LEVAQUIN] Allergy (Severe, Verified 01/15/25 14:06) THROAT CLOSING HPI HPI PO RT CTR 12/31/24 AR: Details: Leo 44 year old right hand dominant male who presents today post operatively s/p right carpal tunnel release DOS: 12/31/24 w/ Dr Madhuri Su. sutures removed and steri strips applied at today's visit. He states that his symptoms has improved after the surgery. Patient mentions that his pain has gotten a little better. [facility] Medical History (Updated 12/16/24 @ 11:23 by Thanh Tuttle MD) Colon cancer screening Arthritis Heartburn Acute kidney injury Impaired glucose tolerance Obstructive sleep apnea Asthma Hypercholesterolemia Obesity (BMI 30-39.9) Vitamin D deficiency Surgical History H/O colonoscopy History of cholecystectomy Family History Mother Diabetes Asthma Father Diabetes High cholesterol Myocardial infarct Asthma Social History Housing: Apartment Alcohol intake: never Patient Tobacco Use Status: Never used Tobacco Tobacco use type: Cigarette e-Cigarette/Vaping Use: Never Used Second Hand Smoke Exposure: No service: No Current occupational status: employed 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 Neuro: Normal sensation of the tips of all digits of the right hand at this time Vascular: Cap refill brisk Pain: No tenderness to palpation about the incision site and volar right wrist No pain with range of motion of the right hand ROM: Patient is able to make a closed fist and extend all digits of the right hand fully Skin: Well approximated and well healing incision site on the volar right wrist General: No ecchymosis, erythema, or evidence of infection. Psych: Appears grossly normal Affect normal Attitude cooperative Assessment & Plan Assessment & Plan (1) Carpal tunnel syndrome, right: Comment: Mild to moderate carpal tunnel syndrome EMG September 2024 Code(s): G56.01 - Carpal tunnel syndrome, right upper limb Category: Medical Plan 1. Status post right carpal tunnel release Patient appears to be recovering well postoperatively Patient is educated about the typical recovery course At this time, patient was informed he will require no further acute follow-up, as he is recovering very well Patient was amenable to this plan Patient will follow-up as needed with any acute concerns Coding Level of Care Code Global (58142) Diagnoses Carpal tunnel syndrome, right G56.01
--- OUTSIDE RECORDS SUMMARY | 2025-01-15 16:27 | XMS_ITS | Clinical Summary ---
Author Organization [facility] ity Address [address] [place] [address] Care Team Providers Care Medical Records Field Technician Name Role Phone Unavailable Primary Care Provider [...]
--- OUTSIDE RECORDS SUMMARY | 2025-01-15 16:27 | XMS_ITS | Clinical Summary ---
Author Organization [facility] Address [address] [place] [address] Phone Care Team Providers Care Firesetter Name Role Phone Thanh Tuttle MD Primary Care Provider [phone] Allergies Active Allergy Reactions Criticality Noted Date [...] series) 07/12 Influenza Vaccine (#1) 2024 Insurance [facility] MEDICAID MEDICAID Care Teams Firesetter Relationship Specialty Start Date End Date Thanh Tuttle MD [facility] [place] [address] [place], [place] PCP - General 11/10/20
== END 2025-01-15 14:10 | disposition home or self-care (01) ==
LOC: HO.HOS 13:53
PROVIDERS: PCP Internal Medicine
DX: G56.01 Carpal tunnel syndrome, right upper limb (principal)
CPT/HCPCS: 99024

== ENCOUNTER 2025-02-13 19:56 | Emergency (ER) | payer OTHER, SELFPAY ==
[2025-02-13 20:12] VITALS: BP 136/68; PULSE 62; RESP 18; TEMP 36.6; O2SAT 96; BMI 36.8
--- NOTE | 2025-02-13 20:13 | ED_ITS ---
HPI - General Adult General Chief complaint: Ear Problems Stated complaint: ear pain Time Seen by Provider: 02/13/25 22:56 History of Present Illness ED Provider: José Miguel FELIPE narrative: The patient is a 44-year-old male who says that last month he had some dental work done on his left jaw. He says that when he received an injection of lidocaine he had a sense of discomfort that went up the left side of his face. He has had some discomfort in the left side of his face ever since then. Today he developed left ear pain which he had not had previously. He has no pain to the external ear he says. He has no change in his hearing. He has had no fever, sweats, chills. No cough or sputum. Related Data Home Medications ?Medication ?Instructions ?Recorded ?Confirmed epinephrine 0.3 mg/0.3 mL 0.3 mg IM Q10M PRN Anaphylaxis 12/02/20 05/01/24 injection, auto-injector albuterol sulfate 90 mcg/actuation 2 puff inhalation Q6H PRN 12/13/23 05/01/24 aerosol inhaler (Ventolin HFA) Shortness Of Breath Or Wheezing Previous Rx's ?Medication ?Instructions ?Recorded cyclobenzaprine 10 mg tablet 10 mg PO BEDTIME PRN muscle spasm 08/31/24 #30 tabs oxycodone-acetaminophen 5 mg-325 1 tab PO Q6H PRN Pain #5 tabs 12/31/24 mg tablet famotidine 20 mg tablet (Pepcid) 20 mg PO BEDTIME #90 tabs 02/04/25 Allergies Allergy/AdvReac Type Severity Reaction Status Date / Time levofloxacin [From LEVAQUIN] Allergy Severe THROAT Verified 02/13/25 20:14 CLOSING Review of Systems Review of Systems: Yes all other systems are reviewed and are negative [facility] Past Medical History Medical History (Updated 02/14/25 @ 00:00 by Amalia Griffiths) Colon cancer screening Arthritis Heartburn Acute kidney injury Impaired glucose tolerance Obstructive sleep apnea Asthma Hypercholesterolemia Obesity (BMI 30-39.9) Vitamin D deficiency Surgical History H/O colonoscopy History of cholecystectomy Family History Family History Mother Diabetes Asthma Father Diabetes High cholesterol Myocardial infarct Asthma Social History Social History Housing: Apartment Unable to assess alcohol history related to: Unknown Alcohol intake: never Patient Tobacco Use Status: Never used Tobacco Tobacco use type: Cigarette e-Cigarette/Vaping Use: Never Used Second Hand Smoke Exposure: No Use of substances other than those prescribed or required for medical reasons: Unknown Advance Directives: No Advance Directives Information Provided: Yes Do you have a plan to hurt others: No Plan service: No Current occupational status: employed 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 He does not appear ill or in distress. HENMT Other: The appearance of the face and the head is unremarkable. The external ears are normal. No tenderness to the tragus of the left ear or the pinna of the left ear. The ear canals are clear and normal bilaterally. Tympanic membranes are normal bilaterally. No intraoral swelling. When I asked the patient to open his mouth he is able to do so easily. When I place my fingers with some mild pressure in the region of the TMJs the patient has distinct discomfort at the left TMJ with jaw closure. Eyes General: appearance normal, both eyes and all related structures Periorbital: periorbital findings normal Eyelids: Yes eyelids normal Conjunctivae: conjunctivae normal Pupils: Equal, round and reactive pupils present EOM: EOMs intact bilaterally Neck Other: The neck is supple. There is no lymphadenopathy. Resp Effort & Inspection: normal respiratory effort Auscultation: clear to auscultation bilaterally Cardio Rate: regular rate Rhythm: regular rhythm Heart sounds: S1 normal heart sound present and S2 normal heart sound present Skin Other: The skin is dry and unremarkable Neuro Other: patient is awake, alert, pleasant, cooperative. Cranial nerves are intact including his hearing. He moves his extremities normally and has a normal gait. He seems grossly neurologically intact. Cranial nerves: Yes Equal, round and reactive pupils present Course Course Course Narrative: This is an RME: Additional HPI, ROS, PE not included below will be deferred to primary provider. RME assessment and note performed by: Pooja Lazo PA-C This is a [id number]-male who presents to the ER with concerns for left sided facial pain. Reports that he had a dental procedure 1 month ago and felt a crack and has had pain in his left lower jaw since. He states that he then developed left ear pain yesterday. L TM with slight erythema and edema. No dental abscess appreciated. Also reporting cough for several days. Plan: Viral swabs Medical Decision Making Medical Decision Making MDM Narrative: The patient is a 44-year-old who presents for evaluation of left-sided ear pain. His ear exam is normal. I think his pain is likely coming from his left TMJ. I think his ear pain is referred pain from the left TMJ. I suspect he has TMJ syndrome. He will be advised to follow-up with his dentist and his regular doctor. Naproxen and acetaminophen as needed for pain. Lab Data Labs: Lab Results 02/13/25 Range/Units 20:21 Influenza Type A (PCR) NEGATIVE (Negative) Influenza Type B (PCR) NEGATIVE (Negative) RSV RNA Qual (PCR) NEGATIVE (Negative) SARS-CoV-2 RNA (RT-PCR) NEGATIVE (Negative) Discharge Plan Discharge Clinical Impression: Left-sided temporomandibular joint pain-dysfunction syndrome Patient Disposition: Home, Self-Care Instructions: Temporomandibular Disorder (ED) Additional Instructions: Your ear canal and your eardrum do not show any signs of infection or any other acute problem. I think you are experiencing what we called temporomandibular joint syndrome (commonly referred to as TMJ syndrome ). This is an irritation of the jaw joint on the left side of the face. Pain in this joint is often perceived as ear pain. You may use naproxen and acetaminophen (Tylenol) as needed for pain. Please follow up with your dentist to discuss this further. Also follow up with your regular doctor. Return to the emergency room if significantly worse. Prescriptions: No Action famotidine [Pepcid] 20 mg tablet 20 mg PO BEDTIME Qty: 90 0RF oxycodone-acetaminophen 5-325 mg Tablet 1 tab PO Q6H PRN (Reason: Pain) Qty: 5 0RF Rx Instructions: Partial Fill upon patient request. epinephrine 0.3 mg/0.3 mL auto-injector 0.3 mg IM Q10M PRN (Reason: Anaphylaxis) Rx Instructions: for 2 doses albuterol sulfate [Ventolin HFA] 90 mcg/actuation HFA aerosol inhaler 2 puff inhalation Q6H PRN (Reason: Shortness Of Breath Or Wheezing) cyclobenzaprine 10 mg tablet 10 mg PO BEDTIME PRN (Reason: muscle spasm) Qty: 30 0RF Referrals: Po,Thanh Pabon MD [Primary Care Provider] - (Left TMJ syndrome) Interventions: ED Discharge Assessment Last Done: 02/13/25 23:26 Discharge Date/Time: 02/13/25 23:29 Print Language: Icelandic
[2025-02-13 21:03] LABS: Influenza A PCR NEGATIVE (Negative); Influenza B PCR NEGATIVE (Negative); Resp Syncy Virus RNA Qual PCR NEGATIVE (Negative); SARS COV2 PCR INHOUSE NEGATIVE (Negative)
[2025-02-13 22:26] VITALS: BP 134/75; PULSE 58; RESP 16; TEMP 36.6; O2SAT 96
[2025-02-13 23:26] VITALS: BP 134/75; PULSE 58; RESP 16; TEMP 36.6; O2SAT 96
== END 2025-02-13 23:29 | disposition home or self-care (01) ==
PROVIDERS: Physician Assistant Medical; Emergency Provider Emergency Medicine; PCP Internal Medicine
DX: M26.602 Left temporomandibular joint disorder, unspecified (principal); H92.02 Otalgia, left ear; J45.909 Unspecified asthma, uncomplicated; E78.00 Pure hypercholesterolemia, unspecified; Z03.818 Encounter for observation for suspected exposure to other biological agents ruled out; Z79.899 Other long term (current) drug therapy
CPT/HCPCS: 0241U; 99283; 99284

== ENCOUNTER 2025-02-19 22:36 | Emergency (ER) | payer OTHER, SELFPAY ==
--- NOTE | ~2025-02-19 | CT_ITS ---
CLINICAL HISTORY: Left submandibular swelling question salivary glan CT soft tissue neck with contrast. Comparison: None Findings: There is mild subcutaneous fat stranding in the left submandibular region only some of which is adjacent to the left submandibular gland. There is no abscess. Submandibular glands appear symmetric and normal in size and enhancement. Parotid glands are unremarkable. There are no enlarged lymph nodes. Blood vessels of the neck appear normal. There is mucous and mucosal thickening within the bilateral maxillary sinuses and left ethmoid air cells. Mastoids are clear. IMPRESSION: Mild subcutaneous fat stranding in the left submandibular region. Correlate for cellulitis. No abscess or evidence of sialoadenitis. This document has been electronically signed by: Robert Daniels MD on 02/20/2025 03:21:44
[2025-02-19 22:48] VITALS: BP 130/82; PULSE 69; RESP 16; TEMP 37.2; O2SAT 95; BMI 35.7
[2025-02-20 00:10] VITALS: BP 135/84; PULSE 62; RESP 17; TEMP 36.8; O2SAT 98
--- NOTE | 2025-02-20 00:51 | ED.GENADULT ---
HPI - General Adult General Chief complaint: General Medical Stated complaint: ?Lump on neck Time Seen by Provider: 02/20/25 00:05 Related Data Home Medications ?Medication ?Instructions ?Recorded ?Confirmed epinephrine 0.3 mg/0.3 mL 0.3 mg IM Q10M PRN Anaphylaxis 12/02/20 05/01/24 injection, auto-injector albuterol sulfate 90 mcg/actuation 2 puff inhalation Q6H PRN 12/13/23 05/01/24 aerosol inhaler (Ventolin HFA) Shortness Of Breath Or Wheezing Previous Rx's ?Medication ?Instructions ?Recorded cyclobenzaprine 10 mg tablet 10 mg PO BEDTIME PRN muscle spasm 08/31/24 #30 tabs oxycodone-acetaminophen 5 mg-325 1 tab PO Q6H PRN Pain #5 tabs 12/31/24 mg tablet famotidine 20 mg tablet (Pepcid) 20 mg PO BEDTIME #90 tabs 02/04/25 doxycycline hyclate 100 mg tablet 100 mg PO BID #20 tabs 02/20/25 Allergies Allergy/AdvReac Type Severity Reaction Status Date / Time levofloxacin [From LEVAQUIN] Allergy Severe THROAT Verified 02/19/25 22:53 [facility] Past Medical History Medical History (Updated 02/20/25 @ 03:41 by Anne Boogie MD) Colon cancer screening Arthritis Heartburn Acute kidney injury Impaired glucose tolerance Obstructive sleep apnea Asthma Hypercholesterolemia Obesity (BMI 30-39.9) Vitamin D deficiency Surgical History H/O colonoscopy History of cholecystectomy Family History Family History Mother Diabetes Asthma Father Diabetes High cholesterol Myocardial infarct Asthma Social History Social History Housing: Apartment Unable to assess alcohol history related to: Unknown Alcohol intake: never Patient Tobacco Use Status: Never used Tobacco Tobacco use type: Cigarette Smoked in Last 30 Days: No e-Cigarette/Vaping Use: Never Used Second Hand Smoke Exposure: No Use of substances other than those prescribed or required for medical reasons: No Advance Directives: No Do you have a plan to hurt others: No Plan service: No Current occupational status: employed 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 Boogie's progress note: Signed out from Dr. Owen check CT which revealed submandibular cellulitis will start the patient on doxycycline. In do not meet SIRS criteria. Time: 03:36 Medications Administered Discontinued Medications Generic Name Dose Route Start Last Admin Trade Name Freq PRN Reason Stop Dose Admin Sodium Chloride 1,000 mls @ 999 mls/hr 02/20/25 01:00 02/20/25 02:45 Ns IV 02/20/25 02:00 Infused .Q1H1M СВЕТЛАНА Infusion Iohexol 85 ml 02/20/25 02:05 02/20/25 02:06 Iohexol 350 Mg/Ml 100 Ml Infus..Btl IV 02/20/25 02:06 85 ml ONCE ONE Administration Ketorolac Tromethamine 15 mg 02/20/25 00:51 02/20/25 01:14 Ketorolac Tromethamine 15 Mg/Ml Vial IVPUSH 02/20/25 00:52 15 mg ONCE ONE Administration Medical Decision Making Lab Data 02/20/25 01:02 02/20/25 01:02 Labs: Lab Results 02/20/25 Range/Units 01:02 WBC 12.3 H (4.8-10.8) X10*3/uL RBC 4.93 (4.60-5.80) X10*6/uL Hgb 13.4 L (14.0-18.0) g/dl Hct 41.0 L (42.0-52.0) % MCV 83.2 (80.0-98.0) fL MCH 27.2 (27.0-33.0) pg MCHC 32.7 (31.0-36.0) g/dl RDW 14.5 (11.0-16.0) % Plt Count 290 (160-400) X10*3/uL MPV 10.0 (9.4-12.4) fL Immature Gran % (Auto) 0.2 (0.0-0.4) % Neut % (Auto) 59.9 (45-73) % Lymph % (Auto) 27.7 (20-40) % [place] % (Auto) 10.2 (2-11) % Eos % (Auto) 1.6 (0-4) % Baso % (Auto) 0.4 (0-2) % Lymph # (Auto) 3.4 (1.2-4.9) X10*3/uL [place] # (Auto) 1.3 H (0.1-1.2) X10*3/uL Eos # (Auto) 0.2 (0.0-0.4) X10*3/uL Baso # (Auto) 0.1 (0.0-0.2) X10*3/uL Abs Immat Gran (auto) 0.03 (0.00-0.03) X10*3/uL Absolute Neuts (auto) 7.4 (2.0-8.3) x10*3/uL Absolute Nucleated RBC 0.000 (0.0-0.012) X10*3/uL Nucleated RBC % (auto) 0.0 (0.0-0.2) /100WBC Sodium 141 (135-145) mmol/L Potassium 4.1 (3.3-5.1) mmol/L Chloride 107 (96-108) mmol/L Carbon Dioxide 25 (22-29) mmol/L Anion Gap 13 (12-20) BUN 16 (9-16) mg/dL Creatinine 1.33 (0.5-1.4) mg/dL Estim Creat Clear Calc 89.8 Estimated GFR 58 Random Glucose 112 (60-115) mg/dL Calcium 9.4 (8.4-10.2) mg/dL Amylase 46 (28-100) U/L Discharge Plan Discharge Clinical Impression: Cellulitis of face Patient Disposition: Home, Self-Care Instructions: Cellulitis (ED) Prescriptions: New doxycycline hyclate 100 mg tablet 100 mg PO BID Qty: 20 0RF No Action famotidine [Pepcid] 20 mg tablet 20 mg PO BEDTIME Qty: 90 0RF oxycodone-acetaminophen 5-325 mg Tablet 1 tab PO Q6H PRN (Reason: Pain) Qty: 5 0RF Rx Instructions: Partial Fill upon patient request. epinephrine 0.3 mg/0.3 mL auto-injector 0.3 mg IM Q10M PRN (Reason: Anaphylaxis) Rx Instructions: for 2 doses albuterol sulfate [Ventolin HFA] 90 mcg/actuation HFA aerosol inhaler 2 puff inhalation Q6H PRN (Reason: Shortness Of Breath Or Wheezing) cyclobenzaprine 10 mg tablet 10 mg PO BEDTIME PRN (Reason: muscle spasm) Qty: 30 0RF Referrals: Po,Thanh Pabon MD [Primary Care Provider] - Print Language: Danish
[2025-02-20 01:07] LABS: Basophils Absolute Auto 0.1 X10*3/uL (0.0-0.2); Basophils Percent Auto 0.4 % (0-2); Eosinophils Absolute Auto 0.2 X10*3/uL (0.0-0.4); Eosinophils Percent Auto 1.6 % (0-4); Hemoglobin 13.4 g/dl (14.0-18.0); Imm Gran Abs Auto 0.03 X10*3/uL (0.00-0.03); Imm Gran Pct Auto 0.2 % (0.0-0.4); Lymphocytes Absolute Auto 3.4 X10*3/uL (1.2-4.9); Lymphocytes Percent Auto 27.7 % (20-40); MANUAL DIFF FLAG NO; Mean Corpuscular HGB Conc 32.7 g/dl (31.0-36.0); Mean Corpuscular Hemoglobin 27.2 pg (27.0-33.0); Mean Corpuscular Volume 83.2 fL (80.0-98.0); Monocytes Absolute Auto 1.3 X10*3/uL (0.1-1.2); Monocytes Percent Auto 10.2 % (2-11); Neutrophils Absolute Auto 7.4 x10*3/uL (2.0-8.3); Neutrophils Percent Auto 59.9 % (45-73); Platelet Count 290 X10*3/uL (160-400); Red Blood Count 4.93 X10*6/uL (4.60-5.80); Red Cell Distribution Width 14.5 % (11.0-16.0); White Blood Count 12.3 X10*3/uL (4.8-10.8)
[2025-02-20] MEDS: 0.9 % Sodium Chloride 1,000 ML 999 ML IV (01:12)
[2025-02-20] MEDS: Ketorolac Tromethamine 15 MG/ML VIAL IVPUSH (01:14)
[2025-02-20 01:21] LABS: Anion Gap 13 (12-20); Blood Urea Nitrogen 16 mg/dL (9-16); Calcium 9.4 mg/dL (8.4-10.2); Carbon Dioxide 25 mmol/L (22-29); Chloride 107 mmol/L (96-108); Creatinine Clr Calc Pharmacy 89.8; Estimated Glomerular Filt Rate 58; Glucose Random 112 mg/dL (60-115); Potassium 4.1 mmol/L (3.3-5.1); Sodium 141 mmol/L (135-145)
[2025-02-20 01:45] LABS: Amylase 46 U/L (28-100)
[2025-02-20 01:49] VITALS: RESP 19
[2025-02-20 02:00] VITALS: BP 135/86; PULSE 71; RESP 19; TEMP 36.8; O2SAT 98
[2025-02-20] MEDS: iohexoL 350 MG/ML 100 ML INFUS..BTL 85 ML IV (02:06)
[2025-02-20] MEDS: Doxycycline Monohydrate 100 MG CAPSULE PO (03:59)
[2025-02-20 04:03] VITALS: BP 135/86; PULSE 71; RESP 19; TEMP 36.8; O2SAT 98
== END 2025-02-20 04:06 | disposition home or self-care (01) ==
PROVIDERS: Emergency Provider Emergency Medicine Emergency Medical Services; PCP Internal Medicine
DX: L03.211 Cellulitis of face (principal)
CPT/HCPCS: 36415; 70491; 80048; 82150; 85025; 96361; 96374; 99284; J1885; Q9967

== ENCOUNTER → 2025-02-20 00:53 | Outpatient (BNV) | payer OTHER, SELFPAY | PROVIDERS: Emergency Provider Emergency Medicine Emergency Medical Services; PCP Internal Medicine; Visit Provider Radiology Diagnostic Radiology | DX: R22.1 Localized swelling, mass and lump, neck (principal) | CPT/HCPCS: 70491 ==

== ENCOUNTER 2025-05-13 10:16 | Outpatient (REF) | payer OTHER, SELFPAY ==
--- NOTE | ~2025-05-13 | XR_ITS ---
EXAMINATION: XR ANKLE 3 OR MORE VIEWS RIGHT HISTORY: M25.571 - Pain in right ankle and joints of right foot COMPARISON: Comparison is made with the prior examination dated 12/26/2019. FINDINGS: Three views of the right ankle are submitted. Osseous mineralization is normal. There is no fracture or dislocation. The joint spaces are preserved. There is a prominent calcaneal spur at the insertion of the Achilles tendon. The soft tissues are unremarkable. XR/XR ankle RT min 3V IMPRESSION: Calcaneal spur at the insertion of the Achilles tendon. Otherwise unremarkable examination of the right ankle. Electronically signed by: Pedro Jalloh MD 05/13/2025 01:17 PM EDT
== END 2025-05-13 10:17 | disposition home or self-care (01) ==
LOC: HO.XRAY 10:16
PROVIDERS: PCP Internal Medicine; Visit Provider Internal Medicine
DX: Z00.00 Encounter for general adult medical examination without abnormal findings (principal); R73.02 Impaired glucose tolerance (oral); E78.00 Pure hypercholesterolemia, unspecified; E66.9 Obesity, unspecified; Z68.36 Body mass index [BMI] 36.0-36.9, adult; K21.9 Gastro-esophageal reflux disease without esophagitis; D64.9 Anemia, unspecified; G47.33 Obstructive sleep apnea (adult) (pediatric); R20.0 Anesthesia of skin; M25.571 Pain in right ankle and joints of right foot; Z13.31 Encounter for screening for depression; Z13.39 Encounter for screening examination for other mental health and behavioral disorders
CPT/HCPCS: 73610; 96127

== ENCOUNTER 2025-05-13 10:16 | Outpatient (AMB) | payer OTHER, SELFPAY ==
[2025-05-13 10:35] VITALS: BP 114/62; PULSE 62; TEMP 36.2; O2SAT 95; BMI 36.3
--- NOTE | 2025-05-13 10:35 | MHC.PC.OV ---
Vital Signs 05/13/25 10:35 Height 5 ft 11 in Weight 260 lb 4 oz BMI 36.3 BP 114/62 Blood Pressure Location Lt brachial Position Sitting Pulse 62 Pulse Source Pulse Oximeter Temp 97.1 F Temp Source Temporal Artery Scan Pulse Oximetry (%) 95 Oxygen Delivery Method Room Air Intake Visit Reasons: Annual Exam Intake Note: Patient is here today for a physical. Metal Mixer Required: No Accompanied by: Self / Same As Patient Allergies levofloxacin (From LEVAQUIN) Allergy (Severe, Verified 05/13/25 10:40) THROAT CLOSING Medication List - Last Reconciled 05/13/25 by Thanh Tuttle MD albuterol sulfate 90 mcg/actuation (Ventolin HFA) 2 puffs inhalation Q6H PRN epinephrine 0.3 mg IM Q10M PRN famotidine (Pepcid) 20 mg PO BEDTIME Tobacco use date assessed: 12/20/24 Dental Screening Dental Screen Date: 12/20/24 [facility] Medical History (Updated 05/13/25 @ 11:16 by Thanh Tuttle MD) Colon cancer screening Arthritis Heartburn Acute kidney injury Impaired glucose tolerance Obstructive sleep apnea Asthma Hypercholesterolemia Obesity (BMI 30-39.9) Vitamin D deficiency Surgical History H/O colonoscopy History of cholecystectomy Family History Mother Diabetes Asthma Father Diabetes High cholesterol Myocardial infarct Asthma Social History Housing: Apartment Unable to assess alcohol history related to: Unknown Alcohol intake: never Patient Tobacco Use Status: Never used Tobacco Tobacco use type: Cigarette e-Cigarette/Vaping Use: Never Used Second Hand Smoke Exposure: No service: No Current occupational status: employed 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 1. Little interest or pleasure in doing things: not at all 2. Feeling down, depressed, or hopeless: not at all 3. Trouble falling or staying asleep, or sleeping too much: not at all 4. Feeling tired or having little energy: not at all 5. Poor appetite or overeating: not at all 6. Feeling bad about yourself - or that you are a failure or have let yourself or your family down: not at all 7. Trouble concentrating on things, such as reading the newspaper or watching television: not at all 8. Moving or speaking so slowly that other people could have noticed. Or the opposite - being so fidgety or restless that you have been moving around a lot more than usual: not at all 9. Thoughts that you would be better off or of hurting yourself in some way: not at all Total score: 0 Depression Screening Interpretation: Negative Depression Screening Done: Yes 85383 - PHQ-9 Billing: Yes Source: Developed by Drs. Pedro Benitez, Jacinta Norris, Leon Fortune and colleagues, with an educational mendy from [employer]. Thrive Questionnaire Date Thrive assessed: 05/13/25 I am a: Patient What is your living situation today?: I have a steady place to live Within the past 12 months, did the food you bought not last and you didn't have the money to get more?: Never true Within the past 12 months, did you worry whether your food would run out before you got money to buy more?: Never true Do you have trouble paying for medicines?: No Do you have trouble getting transportation to medical appointments?: No Do you have trouble paying your heating and electricity bill?: No Do you have trouble taking care of your child, family member or friend?: No Do you have trouble with day-to-day activities such as bathing, preparing meals, shopping, managing finances, etc.?: No Are you currently unemployed and looking for a job?: No Are you interested in more education?: I choose not to answer this question Please select the resources that you would like help with: None Currently or been in a relationship where the following occur: No concerns reported THRIVE Score: 0 AUDIT C Alcohol Use Questionnaire (AUDIT-C) 1. How often do you have a drink containing alcohol?: Never 3. How often do you have six or more drinks on one occasion?: Never Total Score: 0 AUSTEN-7 AMB Questionnaire AUSTEN-7 Date AUSTEN - 7 assessed: 05/13/25 Feeling nervous, anxious, or on edge: 0 = Not at all Not being able to stop or control worryin = Not at all Worrying too much about different things: 0 = Not at all Trouble relaxin = Not at all Being so restless that it is hard to sit still: 0 = Not at all Becoming easily annoyed or irritable: 0 = Not at all Feeling afraid as if something awful might happen: 0 = Not at all Total AUSTEN-7 score (0-4 normal; 5-9 mild; 10-14 moderate; 15-21 severe): 0 Source: Developed by Drs. Pedro Benitez, Jacinta Norris, Leon Fortune and colleagues, with an educational mendy from [employer]. AUSTEN-7 Assessment Billing AUSTEN-7 Assessment Tool: AUSTEN-7 Assessment 30366 Review of Systems Const Denies poor appetite and Denies weakness Eyes Denies no additional complaints ENT Reports Normal hearing present, Denies dizziness, Denies nasal congestion, Denies tinnitus and Denies sore throat Card Denies chest pain, Denies syncope, Denies rapid heart rate and Denies dyspnea Resp Denies cough and Denies dyspnea GI Denies change in stool character, Reports constipation, Denies diarrhea, Denies nausea and Denies vomiting Denies dysuria and Denies urinary frequency Neuro Reports Normal hearing present, Denies confusion, Denies dizziness, Denies syncope and Denies weakness Psych Denies confusion Physical exam (Primary Care) Vital Signs: Last Vital Signs Temp 97.1 F 05/13/25 10:35 Pulse 62 05/13/25 10:35 BP 114/62 05/13/25 10:35 Pulse Ox 95 05/13/25 10:35 Oxygen Delivery Method Room Air 05/13/25 10:35 BMI result Body Mass Index 36.3 Tobacco/Smoking Status: Tobacco use Status Tobacco use date assessed 12/20/24 05/13/25 10:35 Patient Tobacco Use Status Never used Tobacco 05/13/25 10:35 Tobacco use type Cigarette 05/13/25 10:35 e-Cigarette/Vaping Use Never Used 05/13/25 10:35 PHQ-9: PHQ-9 Score PHQ-9: Total score 0 05/13/25 11:00 Depression Screening Interpretation: Negative Thrive Assessment: Date of Thrive Assessment Date Thrive assessed 05/13/25 05/13/25 10:40 Currently or been in a relationship where the following occur: No concerns reported Const General: No confusion Orientation/consciousness: No confusion HENMT Head: Yes normocephalic Ears: external ears normal and TM's normal bilaterally Face and sinus: Yes normal facial exam Mouth: moist mucous membranes Throat: Yes tonsils normal Eyes Conjunctivae: conjunctivae normal Pupils: Equal, round and reactive pupils present and Pupil accommodation reflex normal Direct Ophthalmoscopy: normal light reflex Neck Neck: No lymphadenopathy Thyroid: Thyroid normal Chest Chest palpation & inspection: normal inspection of the chest Resp Effort & Inspection: normal respiratory effort and no audible wheezes Auscultation: clear to auscultation bilaterally, no crackles, no wheezes and lung sounds not diminished Cardio Rate: regular rate Rhythm: regular rhythm Peripheral pulses: radial pulses present and dorsalis pedis present GI Palpation (GI): no masses Auscultation: normal bowel sounds and normoactive bowel sounds Rectal Exam - Male: Yes deferred Skin General skin exam: no rashes or lesions noted Rashes: no rashes Neuro General: No confusion Cranial nerves: Yes Equal, round and reactive pupils present and Yes Normal hearing present Cognition (Neuro): normal cognition Gait exam (Neuro): Normal gait present Motor exam (neuro): 5/5 motor strength present throughout Deep tendon reflexes (DTR's): Right brachioradialis reflex intensity grade: 2+, Left brachioradialis reflex intensity grade: 2+, Right patellar reflex intensity grade: 2+ and Left patellar reflex intensity grade: 2+ Extrem General: No edema Coding Level of Care Code Est Pt Prev Care 40-64y(36617) Diagnoses Impaired glucose tolerance R73.02 Hypercholesterolemia E78.00 Obesity (BMI 30-39.9) E66.9 Gastroesophageal reflux disease, unspecified whether esophagitis present K21.9 Esophagitis presence: esophagitis presence not specified Anemia D64.9 Obstructive sleep apnea G47.33 Annual physical exam Z00.00 Numbness of left hand R20.0 Right ankle pain M25.571 Additional Codes AUSTEN-7 Assessment Billing - AUSTEN-7 Assessment Tool: AUSTEN-7 Assessment 68030 ([id number]) PHQ-9 - 65888 - PHQ-9 Billing: Yes ([id number]) Assessment & Plan Assessment & Plan (1) Impaired glucose tolerance: Code(s): R73.02 - Impaired glucose tolerance (oral) Category: Medical Plan: Decrease the amount of carbohydrate intake, pasta, bread, rice and potatoes are all sugar and that is aside from all the sweet stuff, remember that fruits are good but they are Sweet also. (2) Hypercholesterolemia: Code(s): E78.00 - Pure hypercholesterolemia, unspecified Category: Medical Plan: Avoid fried foods, chicken skin, eggs, butter margarine, pastries and meat. Be it pork or beef they have a lot of cholesterol LDL goal of less than 130 and triglyceride of less than 150 (3) Obesity (BMI 30-39.9): Code(s): E66.9 - Obesity, unspecified Category: Medical Plan: Diet and exercise (4) GERD (gastroesophageal reflux disease): Code(s): K21.9 - Gastro-esophageal reflux disease without esophagitis Category: Medical Qualifiers: Esophagitis presence: esophagitis presence not specified Qualified Code(s): K21.9 - Gastro-esophageal reflux disease without esophagitis Plan: Avoid the foods that causes that usually spicy foods, tomato products, juices, coffee, soda and foods that your sensitive to. After eating do not lie down, allow 3-4 hours before in lie down. And keep the head of bed above 30 degrees to avoid the acid from going up. (5) Anemia: Code(s): D64.9 - Anemia, unspecified Category: Medical Plan: Continue to monitor (6) Obstructive sleep apnea: Comment: And this is going to be along visit because we going to do a Humira--uses cpap Code(s): G47.33 - Obstructive sleep apnea (adult) (pediatric) Category: Medical Plan: Continue to use the CPAP more than 4 hours a night and benefits from this (7) Annual physical exam: Code(s): Z00.00 - Encounter for general adult medical examination without abnormal findings Category: Medical Plan: Patient is advised to eat healthy, keep well hydrated, keep active and have adequate sleep. (8) Numbness of left hand: Code(s): R20.0 - Anesthesia of skin Category: Medical (9) Right ankle pain: Code(s): M25.571 - Pain in right ankle and joints of right foot Category: Medical Plan History of Present Illness The patient is a 44-year-old male presenting for a physical examination and management of chronic conditions. He has a history of asthma, hypercholesterolemia, obstructive sleep apnea, anemia, gastroesophageal reflux disease (GERD), and renal insufficiency. The patient was last seen in December 2024, and his last colon test was on April 04, 2024. In January, the patient visited the emergency room for a mass on the neck, which was treated with antibiotics for cellulitis. He also had an ER visit for left temporomandibular joint disorder (TMJ) and has seen orthopedics for right carpal tunnel syndrome, undergoing carpal tunnel release on December 31, 2024. An abdominal ultrasound in December showed hepatic steatosis. Blood work in January revealed mild anemia with hemoglobin at 13.4 g/dL and hematocrit at 41%, normal electrolytes, and renal function with creatinine at 1.3 mg/dL. The patient's blood sugar was 112 mg/dL, but this was not a fasting test. The patient's last cholesterol test in December 2024 showed an LDL of 108 mg/dL and triglycerides at 198 mg/dL. His hemoglobin A1c is 5.8%, indicating a slightly elevated level but not diagnostic of diabetes. Health Maintenance - Colon cancer screening with stool test completed on April 04, 2024. - Tetanus vaccination is up to date. - Advised to maintain a diet low in fat and sugar and to engage in regular physical activity to manage weight and hepatic steatosis. Social History - Denies tobacco and alcohol use. - Reports engaging in physical activity at work, including using stairs and lifting. Review of Systems - General: Denies fever, chills, or weight loss. - HEENT: Reports past dental infection, denies current ear pain or hearing loss. - Cardiovascular: Denies chest pain, palpitations, or syncope. - Respiratory: Denies dyspnea or cough. - Gastrointestinal: Denies nausea, vomiting, or abdominal pain. - Musculoskeletal: Reports knee pain when climbing stairs, denies joint swelling. Physical Exam General: Cooperative, healthy appearing, comfortable, no acute distress and well developed Orientation: Patient oriented x3 Limitations: No limitations Head: Normal to inspection Ears: Hearing grossly normal bilaterally Nose: Normal external nose present Face and sinus: Normal facial exam Eyes: Appearance normal, both eyes and all related structures Neck: Normal visual inspection and Yes full ROM Respiratory: Normal respiratory effort and able to speak in complete sentences. Clear to auscultation bilaterally Cardiovascular: Regular rate and rhythm. Normal S1 and S2 GI: Normal to inspection. Soft to palpation and nontender Skin: No rashes or lesions noted Neuro: Patient oriented x3 Extremities: Normal to inspection, but patient reports pain and swelling in the right ankle, especially after walking a lot. Plan to have a repeat x-ray of the right ankle. Results - Labs: Mild anemia with hemoglobin at 13.4 g/dL and hematocrit at 41%. - Labs: Normal electrolytes, renal function with creatinine at 1.3 mg/dL. - Labs: Blood sugar at 112 mg/dL (non-fasting). - Labs: Hemoglobin A1c at 5.8%. - Imaging: Abdominal ultrasound showed hepatic steatosis. Plan The patient will continue to manage asthma with an albuterol inhaler as needed and avoid triggers. For hypercholesterolemia, the patient is advised to maintain a diet low in fat and engage in regular exercise to manage cholesterol levels, with a goal of LDL less than 130 mg/dL and triglycerides less than 150 mg/dL. Obstructive sleep apnea management includes continued use of CPAP for more than 4 hours a night, which has shown benefits. The patient is advised to monitor renal function and avoid nephrotoxic medications such as ibuprofen and naproxen. For hepatic steatosis, the patient is encouraged to lose weight through a healthy diet and regular physical activity. Follow-up in six months is recommended to reassess blood sugar and cholesterol levels with fasting blood work. Patient was informed and verbally consented to the use of an ambient scribe for clinic note documentation during this visit. Discussion Notes During the visit, I discussed with the patient the importance of managing his chronic conditions, including asthma, hypercholesterolemia, and obstructive sleep apnea. We reviewed the need for lifestyle modifications, such as a low-fat diet and regular exercise, to manage cholesterol and hepatic steatosis. I advised the patient to continue using CPAP for sleep apnea and to avoid nephrotoxic medications to protect renal function. We agreed on a follow-up in six months to reassess his blood sugar and cholesterol levels with fasting blood work. Patient Instructions - Continue using your albuterol inhaler as needed for asthma. - Maintain a low-fat diet and exercise regularly to manage cholesterol and weight. - Use CPAP for more than 4 hours each night for sleep apnea. - Avoid ibuprofen and naproxen to protect kidney function. - Schedule a follow-up appointment in six months for fasting blood work. Orders: Orders NE electromyogram (EMG) Today R20.0 - Anesthesia of skin Comprehensive Met. Panel 6 Months R73.02 - Impaired glucose tolerance (oral) Free T4 (Free Thyroxine) 6 Months R73.02 - Impaired glucose tolerance (oral) Hemoglobin A1c 6 Months R73.02 - Impaired glucose tolerance (oral) Complete Blood Count Auto Diff 6 Months R73.02 - Impaired glucose tolerance (oral) Lipid Panel 6 Months E78.00 - Pure hypercholesterolemia, unspecified, R73.02 - Impaired glucose tolerance (oral) Ferritin 6 Months R73.02 - Impaired glucose tolerance (oral) Reticulocyte Count 6 Months R73.02 - Impaired glucose tolerance (oral) NE nerve conduction velocity Today R20.0 - Anesthesia of skin IRON PROFILE 6 Months R73.02 - Impaired glucose tolerance (oral)
--- OUTSIDE RECORDS SUMMARY | 2025-05-13 11:00 | XMS_ITS | Clinical Summary ---
Author Organization [facility] ity Address [address] [place] [address] Care Team Providers Care Horse And Wagon Driver Name Role Phone Unavailable Primary Care Provider [...] (2023-2 5 season) 2024 Influenza Vaccine (#1) 2025 HIB Vaccines Aged Out No longer eligi [...] age to complete this topic Meningococcal B Vaccine Aged Out No l onger eligible based on patient's age to complete this topic Pneumococcal Vaccine: Pediat rics (0 to 5 Years) and At-Risk Patients (6 to 49 Years) Aged Out No longer eligible b ased on patient's age to complete this topic RSV Immunization Patients Un frantz 20 months Aged Out No longer eligible b ased on patient's age to complete this topic Varicella Vaccines Aged Out No longer eligible based on patient's age to complete this topic
--- OUTSIDE RECORDS SUMMARY | 2025-05-13 11:00 | XMS_ITS | Clinical Summary ---
Author Organization [facility] Address [address] [place] [address] Phone Care Team Providers Care Jewelry Making Instructor Name Role Phone Thanh Tuttle MD Primary Care Provider [phone] Allergies Active Allergy Reactions Criticality Noted Date [...] Health Maintenance Due Date Last Done Comments Hepatitis B Vaccine (1 of 3 - 19+ 3-dose series) 07/12 Pneumococcal Vaccine: Peds ( 0 to 5 Years) and At-Risk Patients (6 to 49 Years) (1 of 2 - PCV) 1997 Influenza Vaccine (#1) 2025 Insurance [facility] Medicaid Medicaid Care Teams Jewelry Making Instructor Relationship Specialty Start Date End Date Thanh Tuttle MD [facility] [place] [address] [place], [place] PCP - General 11/10/20
== END 2025-05-13 11:21 | disposition home or self-care (01) ==
LOC: HO.HMCH 10:17
PROVIDERS: PCP Internal Medicine; Visit Provider Internal Medicine
DX: Z00.00 Encounter for general adult medical examination without abnormal findings (principal); R73.02 Impaired glucose tolerance (oral); E66.9 Obesity, unspecified; Z68.36 Body mass index [BMI] 36.0-36.9, adult; E78.00 Pure hypercholesterolemia, unspecified; K21.9 Gastro-esophageal reflux disease without esophagitis; D64.9 Anemia, unspecified; G47.33 Obstructive sleep apnea (adult) (pediatric); R20.0 Anesthesia of skin; M25.571 Pain in right ankle and joints of right foot

== ENCOUNTER → 2025-05-13 11:33 | Outpatient (BNV) | payer OTHER, SELFPAY | PROVIDERS: PCP Internal Medicine; Visit Provider Radiology Diagnostic Radiology | DX: M77.31 Calcaneal spur, right foot (principal) | CPT/HCPCS: 73610 ==

== ENCOUNTER 2025-06-18 07:53 | Outpatient (REF) | payer OTHER, SELFPAY ==
--- NOTE | 2025-06-18 07:55 | EMG_ITS ---
Patient Complaints: Numbness of left hand Left median and ulnar motor and sensory studies were performed left radial sensory and median and lateral antecubital brachial sensory studies were performed an EMG needle examination was performed. Impression: 1. [id number] left median neuropathy across carpal tunnel 2. Mild left ulnar neuropathy across cubital tunnel MTDD
--- OUTSIDE RECORDS SUMMARY | 2025-06-18 07:55 | XMS_ITS | Clinical Summary ---
Author Organization [facility] ity Address [address] [place] [address] Care Team Providers Care Batch Freezer Operator Name Role Phone Unavailable Primary Care Provider [...] 1997 COVID-19 Vaccine (2023-2 5 season) 2024 Depression Screening 10/31/2024 Influenza Vaccine (#1) 2025 HIB Vaccines Aged [...]
--- OUTSIDE RECORDS SUMMARY | 2025-06-18 07:56 | XMS_ITS | Clinical Summary ---
Author Organization [facility] Address [address] [place] [address] Phone Care Team Providers Care Plate Take Out Worker Name Role Phone Thanh Tuttle MD Primary Care Provider [phone] Allergies Active Allergy Reactions Criticality Noted Date [...] PCV) 1997 Influenza Vaccine (#1) 2025 Insurance [facility] Medicaid Medicaid Care Teams Plate Take Out Worker Relationship Specialty Start Date End Date Thanh Tuttle MD [facility] [place] [address] [place], [place] PCP - General 11/10/20
== END 2025-06-18 07:54 | disposition home or self-care (01) ==
LOC: HO.NEURO 07:53
PROVIDERS: PCP Internal Medicine; Visit Provider Internal Medicine
DX: G56.12 Other lesions of median nerve, left upper limb (principal); G56.21 Lesion of ulnar nerve, right upper limb; R20.0 Anesthesia of skin
CPT/HCPCS: 95886; 95910

== ENCOUNTER → 2025-06-18 07:55 | Outpatient (BNV) | payer OTHER, SELFPAY | PROVIDERS: PCP Internal Medicine; Visit Provider Psychiatry & Neurology Neurology | DX: G56.02 Carpal tunnel syndrome, left upper limb (principal) | CPT/HCPCS: 95886; 95910 ==

== ENCOUNTER 2025-07-23 15:08 | Outpatient (AMB) | payer OTHER, SELFPAY ==
--- NOTE | 2025-07-23 15:39 | A.OFFVIS_ITS ---
Vital Signs 07/23/25 15:58 Height 5 ft 11 in Weight 260 lb BMI 36.3 Intake Visit Reasons: New prob- left CTS/ EMG done 06/18/25 Intake Note: Leo 45 year old right hand dominant male who presents today for as an established patient, new problem visit to discuss left hand numbness and tingling. Patient reports his symptoms are on and off throughout the day that has been present for over a year. Denies injury. EMG done. He states with prolong holding items he will get a tingling sensation after about 5 minutes. He has tried and failed bracing at night, however does not help. Hx of RT CTR on 12/31/24. Impressions: 1. [id number]-za-[id number] left median neuropathy across carpal tunnel 2. Mild left ulnar neuropathy across cubital tunnel Allergies levofloxacin (From LEVAQUIN) Allergy (Severe, Verified 07/23/25 16:02) THROAT CLOSING HPI HPI New prob- left CTS/ EMG done 06/18/25: Details: Leo is a 45 year old right hand dominant man who returns for a NCS review of his left hand numbness. He complains of numbness in his left hand, which he says is present in all his fingers. Symptoms intermittent, but daily, worse at night. He says he feels his small finger going numb when he is playing Guitar. He has right cubital tunnel syndrome, and a Hx of right carpal tunnel release, DOS: 12/31/24, with good relief of his symptoms and normal sensation following surgery [facility] Medical History (Updated 07/23/25 @ 16:11 by Saurabh Mayberry) Colon cancer screening Arthritis Heartburn Acute kidney injury Impaired glucose tolerance Obstructive sleep apnea Asthma Hypercholesterolemia Obesity (BMI 30-39.9) Vitamin D deficiency Surgical History H/O colonoscopy History of cholecystectomy Family History Mother Diabetes Asthma Father Diabetes High cholesterol Myocardial infarct Asthma Social History Housing: Apartment Unable to assess alcohol history related to: Unknown Alcohol intake: never Patient Tobacco Use Status: Never used Tobacco Tobacco use type: Cigarette e-Cigarette/Vaping Use: Never Used Second Hand Smoke Exposure: No service: No Current occupational status: employed 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 Cognitive needs: No Hearing needs: No Vision needs: Yes Review of Systems Const All systems reviewed & are unremarkable except as noted in HPI and below Physical Exam Vital Signs: BMI result Body Mass Index 36.3 Const General: cooperative, healthy appearing and no acute distress Orientation/consciousness: patient oriented x3 HEENT Head: Yes normocephalic and Yes atraumatic Eyes EOM: EOMs intact bilaterally Resp Effort & Inspection: normal respiratory effort and able to speak in complete sentences Cardio Jugular venous distension: no JVD Skin General skin exam: turgor normal Rashes: no rashes Neuro General: patient oriented x3 Extrem Other: Evaluation of Left Upper Extremity: The patient is alert, oriented, and in no acute distress Neuro: Median, Ulnar, Radial nerves motor and sensory intact and sensation is normal to the tips of all digits Vascular: Cap refill brisk ROM: He can make a fist and extend all his digits No locking or catching Skin: No lacerations or abrasions. General: No Ecchymosis. No Erythema or evidence of infection. Nerve Conduction Study: Left-side only Impression: 1. Fnfz-hn-bpexlrze left median neuropathy across carpal tunnel 2. Mild left ulnar neuropathy across cubital tunnel Noelle Johnson MD 06/18/25 Psych Appearance: grossly normal Affect: normal affect Attitude: cooperative Assessment & Plan Assessment & Plan (1) Carpal tunnel syndrome, left: Comment: May [id number] left median neuropathy across carpal tunnel 2. Mild left ulnar neuropathy across cubital tunnel Code(s): G56.02 - Carpal tunnel syndrome, left upper limb Category: Medical (2) Cubital tunnel syndrome on left: Code(s): G56.22 - Lesion of ulnar nerve, left upper limb Category: Medical Plan Assessment & Plan: 1. Left carpal tunnel syndrome, mild-moderate Symptoms intermittent, but daily worse at night 2. Left cubital tunnel syndrome, mild Symptoms intermittent, but daily worse at night I educated him about this condition I discussed operative and non-operative treatment options The patient would like to proceed with surgery He will be mindful of his small finger numbness, and he may cancel part of his surgery if he thinks his small finger does not go numb. The risks and benefits of operative treatment were discussed with the patient and the patient wishes to proceed with surgery. These risks include, but are not limited to risk of damage to blood vessels, nerves, tendons, infection, recurrence, incomplete relief of preoperative symptoms, persistent pain, possible need for further surgery and the risks associated with regional blocks and anesthesia. The plan is to take the patient to the operating room sometime in the next few weeks for the following procedures: 1. Left carpal tunnel release, under general 2. Left cubital tunnel release, under general All of the preoperative paperwork including the consent was reviewed today. All the patient's questions were answered. The patient understands that they will be contacted by our nursing instructor soon to schedule this procedure He denies Diabetes, blood thinners, asthma, heart, lung, kidney issues 3. Right carpal tunnel syndrome, S/P release DOS: 12/31/24 4. Right cubital tunnel syndrome, mild Symptoms intermittent, but daily, worse at night Scribed for Madhuri Su MD by Saurabh Mayberry, health care / medical job titles, on 07/23/25 at 4:15 PM, EST. Coding Level of Care Code Est Pt Level 4 (81491) Diagnoses Carpal tunnel syndrome, left G56.02 Cubital tunnel syndrome on left G56.22
[2025-07-23 15:58] VITALS: BMI 36.3
--- OUTSIDE RECORDS SUMMARY | 2025-07-23 18:09 | XMS_ITS | Clinical Summary ---
Author Organization [facility] Address [address] [place] [address] Phone Care Team Providers Care Weekend Caregiver Name Role Phone Thanh Tuttle MD Primary Care Provider [phone] Allergies Active Allergy Reactions Criticality Noted Date [...] PCV) 1997 Influenza Vaccine (#1) 2025 Insurance [facility] Medicaid Medicaid Care Teams Weekend Caregiver Relationship Specialty Start Date End Date Thanh Tuttle MD [facility] DC [id number] [place], [place] PCP - General 11/10/20
--- OUTSIDE RECORDS SUMMARY | 2025-07-23 18:09 | XMS_ITS | Clinical Summary ---
Author Organization [facility] ity Address [address] [place] [address] Care Team Providers Care Test Pilot Name Role Phone Unavailable Primary Care Provider [...] of 3 - 19+ 3-dose series) 1997 Depression Screening 10/31/2024 COVID-19 Vaccine (1 - 2023-2 5 season) 2025 Influenza Vaccine (#1) 2025 HIB Vaccines Aged [...]
== END 2025-07-24 14:14 | disposition home or self-care (01) ==
LOC: HO.HOS 15:09
PROVIDERS: PCP Internal Medicine; Visit Provider Orthopaedic Surgery
DX: G56.02 Carpal tunnel syndrome, left upper limb (principal); G56.22 Lesion of ulnar nerve, left upper limb
CPT/HCPCS: 99214